=== PATIENT | male | born 1960 | race Caucasian/White ===

== ENCOUNTER 2021-12-23 17:48 | Observation (INO) | payer OTHER, SELFPAY ==
[2021-12-23] VITALS (16 sets, daily range): BP systolic 115–160; BP diastolic 66–84; PULSE 64–80; RESP 14–21; TEMP 35.8–36.7; O2SAT 96–99; BMI 23.9
--- NOTE | ~2021-12-23 | XR_ITS ---
EXAMINATION: XR chest 2V DATE: 12/23/2021 18:22 INDICATION: Left arm numbness TECHNIQUE: PA and lateral views of the chest are obtained. COMPARISON: None available FINDINGS: The lungs are free of acute opacities. There is no pleural effusion or pneumothorax. The ca rdiomediastinal silhouette is normal. There is mild thoracic spondylosis. Median sternotomy wires are consistent with prior cardiac surgery. IMPRESSION: 1. No acute cardiopulmonary abnormality. Reviewed, dictated and finalized at location F.
--- NOTE | ~2021-12-23 | XR_ITS ---
EXAMINATION: XR shoulder LT min 2V INDICATION: Left shoulder pain TECHNIQUE: Four views of the left shoulder are submitted. COMPARISON: None FINDINGS: Normal alignment. No fracture. There is mild osteoarthritis of the glenohumeral and acromio clavicular joints. Median sternotomy wires are noted. Soft tissues are unremarkable. IMPRESSION: 1. No acute osseous abnormality. Reviewed, dictated and finalized at location F.
--- NOTE | 2021-12-23 17:54 | ECG_ITS ---
Measurements Intervals [place] Rate: 69 P: 69 [place]: 161 QRS: -25 QRSD: 97 T: 78 QT: 389 QTc: 418 Interpretive Statements SINUS RHYTHM INCOMPLETE RIGHT BUNDLE BRANCH BLOCK CANNOT RULE OUT SEPTAL INFARCT, AGE INDETERMINATE BORDERLINE ST-T WAVE ABNORMALITY- ANTEROLAT/HIGH LAT LEADS BASELINE ARTIFACT- I, II, III, AVR, AVL, V2-V3 ABNORMAL ECG Electronically Signed On 12-23-2021 18:18:10 CDT by Justin Schmid D.O.
[2021-12-23 18:17] LABS: Basophils Percent Auto 0.3 % (0.2-1.2); Eosinophils Absolute Auto 0.1 K/mm3 (0-0.3); Eosinophils Percent Auto 1.5 % (0-4.4); Hematocrit 43.6 % (42.0-52.0); Hemoglobin 14.8 g/dL (14.0-18.0); Immature Granulocyte Absolute 0.03 K/mm3 (0.00-0.031); Immature Granulocyte Percent A 0.4 % (0-0.5); Lymphocytes Absolute Auto 2.39 K/mm3 (0.9-3.2); Lymphocytes Percent Auto 31.5 % (18.3-44.2); Mean Corpuscular HGB Conc 33.9 g/dl (32-36); Mean Corpuscular Hemoglobin 32.5 pg (26-34); Mean Corpuscular Volume 95.6 fl (80-100); Mean Platelet Volume 8.9 fl (7.4-10.4); Monocytes Absolute Auto 0.7 K/mm3 (0.1-0.6); Monocytes Percent Auto 8.7 % (2.6-8.5); Neutrophils Absolute Auto 4.4 K/mm3 (1.3-6.7); Neutrophils Percent Auto 57.6 % (45.5-73.1); Platelet Count Result 159 k/mm3 (150-375); Red Blood Count 4.56 M/mm3 (4.6-6.20); Red Cell Distribution Width 12.8 % (11.5-14.5); White Blood Count 7.6 K/mm3 (4.5-10.0)
[2021-12-23] MEDS: ASPIRIN 81 MG CHEWABLE TABLET 324 MG PO (18:20)
[2021-12-23 18:28] LABS: Partial Thromboplastin Time 34.6 SECONDS (22.3-36.8)
[2021-12-23 18:29] LABS: Alanine Aminotransferase 31 U/L (6-50); Albumin Level 4.7 g/dL (3.5-5.1); Alkaline Phosphatase 112 U/L (38-126); Anion Gap 7 mmol/L (8-16); Aspartate Amino Transferase 33 U/L (17-59); Bilirubin,Total 0.2 mg/dL (0.2-1.3); Blood Urea Nitrogen 11 mg/dL (9-20); Calcium 8.8 mg/dL (8.4-10.2); Carbon Dioxide 27 mmol/L (22-30); Chloride 108 mmol/L (98-107); Estimated CRCL calculation 90 ml/min; Estimated Glomerular Filt Rate > 60; Glucose 98 mg/dL (65-110); Lipase 71 U/L (23-300); Potassium 3.4 mmol/L (3.4-5.0); Sodium 142 mmol/L (137-145)
--- NOTE | 2021-12-23 18:43 | ED.CHESTPAIN ---
HPI - Chest Pain General Chief Complaint: Chest Pain Stated Complaint: chest pain, left arm numbness Time Seen by Provider: 12/23/21 18:42 Source: patient, family and RN notes reviewed Mode of arrival: ambulatory Limitations: no limitations History of Present Illness HPI narrative: Patient is 61 years old white male presented to the ED with gradual progression of pain at the left upper extremity/left shoulder. Patient also reports some shortness of breath and left upper chest pain. Over the last 7 days and gradually getting worse. Patient reported pain improves with sublingual nitroglycerin for maximum 30 minutes then comes back again. History of possible left rotator cuff injury. History of depression, coronary artery disease, 2 coronary stents 3 years ago, cardiac balloon May 2022. Patient does smoke, does not drink or uses drugs, Related Data Allergies Allergy/AdvReac Type Severity Reaction Status Date / Time No Known Allergies Allergy Verified 12/23/21 18:04 Review of Systems Review of Systems: All systems reviewed & are unremarkable except as noted in HPI and below Exam Narrative: General appearance: Well-developed, well-nourished Skin: Normal color Head: Normocephalic, nontraumatic Eyes: Clear conjunctiva ENT: Oropharynx normal, ears normal, nose normal Neck: Supple, nontender Chest and respiratory: Airway patent, no respiratory distress, no accessory muscle use Heart: Regular rate/rhythm Abdomen: Soft, nontender, no organomegaly, quiet bowel sounds Vascular: Normal peripheral pulses, normal capillary refill. Musculoskeletal: Diffuse tenderness left shoulder mainly with movement, no bruises, no swelling, no rash Neurologic: Alert and oriented ?3, ICE SELLER is normal as tested, no gross motor deficit Course Vital Signs Vital signs: Vital Signs Temperature 36.7 C 12/23/21 18:00 Pulse Rate 68 12/23/21 18:00 Respiratory Rate 18 12/23/21 18:00 Blood Pressure 160/72 H 12/23/21 18:00 Pulse Oximetry 99 12/23/21 18:00 Oxygen Delivery Room Air 12/23/21 18:00 Temperature 36.7 C 12/23/21 18:00 Pulse Rate 65 12/23/21 18:23 Respiratory Rate 18 12/23/21 18:00 Blood Pressure 160/72 H 12/23/21 18:00 Pulse Oximetry 99 12/23/21 18:00 Oxygen Delivery Room Air 12/23/21 18:00 MDM - Chest Pain Lab Data Result diagrams: 12/23/21 18:12 12/23/21 18:12 Labs: Lab Results 12/23/21 12/23/21 12/23/21 Range/Units 18:12 18:12 18:12 WBC 7.6 (4.5-10.0) K/mm3 RBC 4.56 L (4.6-6.20) M/mm3 Hgb 14.8 (14.0-18.0) g/dL Hct 43.6 (42.0-52.0) % MCV 95.6 (80-100) fl MCH 32.5 (26-34) pg MCHC 33.9 (32-36) g/dl RDW 12.8 (11.5-14.5) % Plt Count 159 (150-375) k/mm3 MPV 8.9 (7.4-10.4) fl Immature Gran % (Auto) 0.4 (0-0.5) % Neut % (Auto) 57.6 (45.5-73.1) % Lymph % (Auto) 31.5 (18.3-44.2) % [place] % (Auto) 8.7 H (2.6-8.5) % Eos % (Auto) 1.5 (0-4.4) % Baso % (Auto) 0.3 (0.2-1.2) % Lymph # (Auto) 2.39 (0.9-3.2) K/mm3 [place] # (Auto) 0.7 H (0.1-0.6) K/mm3 Eos # (Auto) 0.1 (0-0.3) K/mm3 Baso # (Auto) 0.0 (0.0-0.1) K/mm3 Abs Immat Gran (auto) 0.03 (0.00-0.031) K/mm3 Absolute Neuts (auto) 4.4 (1.3-6.7) K/mm3 Absolute Nucleated RBC 0.0 (0.0-0.012) K/mm3 Nucleated RBC % 0.0 (0.0-0.2) % PT 13.0 (11.1-14.7) Seconds INR 1.0 APTT 34.6 (22.3-36.8) SECONDS Sodium 142 (137-145) mmol/L Potassium 3.4 (3.4-5.0) mmol/L Chloride 108 H (98-107) mmol/L Carbon Dioxide 27 (22-30) mmol/L Anion Gap 7 L (8-16) mmol/L BUN 11 (9-20) mg/dL Creatinine 0.90
[2021-12-23 18:46] LABS: Troponin I < 0.012 ng/mL (0.000-0.034)
--- NOTE | 2021-12-23 20:45 | PC.NURSE ---
Patient stated, I do not need or want any kind of medication
--- NOTE | 2021-12-23 21:30 | PC.NURSE ---
This patient, Boris Colin Jr., was admitted to IMU Room 201-01. Patient/family oriented to hospital policies and general routines including ID bracelet, bed and alarms, visiting hours, pain management, procedures, bathroom and other care routines, personal items, smoking policy, room service/diet, and visiting hours. Patient/Family are encouraged to report perceived risks to care and to ask questions if they do not understand what they are told or what they should do.
[2021-12-23] MEDS: ENOXAPARIN 100 MG/ML SYRINGE 90 MG SUB-Q (21:48)
[2021-12-23] MEDS: NITROGLYCERIN OINTMENT 1 INCH DOSE TRANSDERM (21:48)
[2021-12-23 22:35] LABS: Troponin I < 0.012 ng/mL (0.000-0.034)
[2021-12-23] MEDS: carvediloL 12.5 MG TABLET PO (22:37)
[2021-12-24] VITALS: PULSE 68
[2021-12-24 00:06] LABS: Troponin I < 0.012 ng/mL (0.000-0.034)
[2021-12-24] MEDS: HYDROcodone/acetaminophen (*CRX) 10-325 MG TABLET 1 TAB PO (00:53)
[2021-12-24] MEDS: NITROGLYCERIN OINTMENT 1 INCH DOSE TRANSDERM (00:53)
[2021-12-24 02:00] VITALS: PULSE 69
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
[2021-12-24] MEDS: CYCLOBENZAPRINE HCL 10 MG TABLET PO (03:36)
[2021-12-24 04:00] VITALS: BP 130/72; PULSE 94; RESP 16; TEMP 36.2; O2SAT 97
[2021-12-24 05:43] VITALS: PULSE 64
--- NOTE | 2021-12-24 06:00 | ECG_ITS ---
Measurements Intervals [place] Rate: 66 P: 66 MT: 167 QRS: -22 QRSD: 98 T: 91 QT: 415 QTc: 437 Interpretive Statements SINUS RHYTHM POSSIBLE RIGHT VENTRICULAR CONDUCTION DELAY [RSR (QR) IN V1/V2] NONSPECIFIC ST ABNORMALITY SEPTAL MYOCARDIAL INFARCTION , OF INDETERMINATE AGE [40+ ms Q WAVE IN V1/V2] ABNORMAL ECG COMPARED TO ECG 12/23/2021 17:54:05 NO SIGNIFICANT CHANGES Electronically Signed On 12-24-2021 11:41:12 CDT by Dilan Monahan M.D.
[2021-12-24 08:00] VITALS: BP 122/84; PULSE 66; RESP 12; TEMP 35.8; O2SAT 96
[2021-12-24] MEDS: CLOPIDOGREL BISULFATE 75 MG TABLET PO (08:21)
[2021-12-24] MEDS: LIPASE/AMYLASE/PROTEASE 12,000 UNITS CAP 9 CAP PO (08:21)
[2021-12-24] MEDS: GABAPENTIN 300 MG CAPSULE PO (08:21)
[2021-12-24 08:22] VITALS: PULSE 70
[2021-12-24] MEDS: CITALOPRAM HYDROBROMIDE 20 MG TABLET PO (08:22)
[2021-12-24] MEDS: ISOSORBIDE MONONITRATE 60 MG TAB.ER.24H PO (08:22)
[2021-12-24] MEDS: FAMOTIDINE 20 MG TABLET PO (08:22)
[2021-12-24] MEDS: ASPIRIN 81 MG CHEWABLE TABLET PO (08:22)
[2021-12-24] MEDS: carvediloL 6.25 MG TABLET PO (08:22)
[2021-12-24] MEDS: ATORVASTATIN 10 MG TABLET PO (08:23)
[2021-12-24] MEDS: HYDROcodone/acetaminophen (*CRX) 5-325 MG TABLET 1 TAB PO (08:26)
--- NOTE | 2021-12-24 09:18 | PM.CNCAR ---
Assessment and Plan Assessment and plan (1) Coronary artery disease: Code(s): I25.10 - Atherosclerotic heart disease of [place] coronary artery without angina pectoris Status: Acute Assessment and Plan: no anginal symptoms at presentation. Left shoulder and neck pain consistent with musculoskeletal etiology and or radiculopathy secondary to cervical spine nerve impingement and or muscle strain. Local pain management per primary service. Symptoms are not due to acute coronary syndrome and/or unstable angina. He has no chest pain and present symptoms are completely different than that noted with his previous myocardial infarction. Serial troponins negative, no acute ischemic changes by EKG. No further cardiovascular workup indicated at this time. Patient will follow-up with his engine oiler at [facility] and vascular after discharge. Continue home cardiovascular medical therapy going statin, beta-murray, antiplatelet with clopidogrel. Patient had a PCI/balloon angioplasty May 2021 There for must not be discontinued on clopidogrel. I would add aspirin 81 mg daily as well given recent intervention. Stable for discharge from cardiac perspective. Disposition per hospitalist service. Please do not hesitate to contact us with any additional questions or concerns. (2) Left shoulder pain: Code(s): M25.512 - Pain in left shoulder Status: Acute Assessment and Plan: Musculoskeletal etiology. Per primary service. Secondary to cervical nerve impingement and or muscle strain with spasm. (3) Essential hypertension: Code(s): I10 - Essential (primary) hypertension Status: Acute Assessment and Plan: Reasonably controlled. Continue antihypertensive regimen. (4) Hyperlipidemia: Code(s): E78.5 - Hyperlipidemia, unspecified Status: Acute Assessment and Plan: Continue atorvastatin, goal LDL less than 70. (5) Tobacco abuse: Code(s): Z72.0 - Tobacco use Status: Acute Assessment and Plan: Immediate and absolute smoking cessation counseling. Patient verbalized understanding states he is attempting to quit. (6) History of myocardial infarction: Code(s): I25.2 - Old myocardial infarction Status: Acute Assessment and Plan: History of prior myocardial infarction with multiple stent implantations several years ago. Patient reports having balloon angioplasty May 2021 but denies having preceding symptoms or improvement in how he was feeling as this was performed due to abnormal stress test as he reports. History of Present Illness History of Present Illness Consult date/time: Date of service:12/24/21 09:18 Cardiology consultation at the request of Dr. Coulter of the [facility] service for opinion regarding history of CAD and shoulder pain. Requesting physician: Jade Coulter DO Reason For Visit: Unstable angina,lft shoulder rotator cuff syndrome Narrative: Patient is a pleasant 61-year-old male with past medical history significant for COPD, tobacco abuse, CAD with prior myocardial infarction with STEMI late presentation November 2008 with extensive LAD calcification 100% occlusion status post 2 drug-eluting stents in the diagonal Dr. Menchaca now follows [facility] cardiology at [facility] in [place]. Patient reports he has done well without recurrent chest pain or shortness of breath but reports he underwent a stress test with his engine oiler which led to a cardiac catheterization May 2021 and balloon angioplasty at that time. Patient denies chest pain or shortness of breath preceding this procedure or subsequent. He has been compliant with medications although he continues to smoke. He states for the past week he has had constant left shoulder and neck pain improved temporarily with his [place] for couple of hours then would return. The severity progressed over the past several day
--- NOTE | 2021-12-24 11:23 | PM.DS ---
DS: Admitting Diagnosis Discharge Date December 24, 2021 Admitting Diagnosis chest pain DS: Discharge Diagnosis Discharge Diagnosis (1) Coronary artery disease: Code(s): I25.10 - Atherosclerotic heart disease of [place] coronary artery without angina pectoris Status: Acute Assessment and Plan: not a cardiac issue this hospitalization (2) Left shoulder pain: Code(s): M25.512 - Pain in left shoulder Status: Acute Plan pain was related to Neck pain with radiculopathy. DS: Summary Hospital Course Reason for hospitalization: Left shoulder pain Hospital Course: admit for left shoulder pain and found to have left-sided neck radiculopathy. Cardiac workup negative. Cardiology no further workup needed. He can be discharged home Time Spent with Patient Time attestation: Total time spent providing and/or coordinating discharge services: Exam Narrative: PHYSICAL EXAM: WEIGHT 87 kg BMI 24 General: No acute distress, well-developed well-nourished HEENT: Mucous membranes are moist, edentulous in upper jaw, poor dentition in lower jaw, pupils are equal and reactive, eye glasses in place, head is normocephalic atraumatic Respiratory: End-expiratory wheezing bilaterally, no increased work of breathing Cardiovascular: Regular rate, regular rhythm, 2+ bilateral radial pedal pulses Gastrointestinal: Soft, nontender, nondistended, positive bowel sounds, no organomegaly Skin: No pallor, non jaundice Musculoskeletal: No clubbing, cyanosis or edema, moves all extremities equally, decreased recently motion of the left shoulder with lateral adduction of the shoulder, no point tenderness Neurological: Alert and oriented, speech is clear, no facial asymmetry, no localizing neurologic deficits noted during the course catheterization Psychiatric: Appropriate mood and affect, pleasant and cooperative : Deferred Hematologic/lymphatic: No petechiae, no bruising, no anterior cervical lymphadenopathy Back and spine: Left paraspinal muscle/trapezius muscle spasm with tenderness to palpation of the neck DS: Data Data Completed and Pending Labs on day of discharge: Labs from last 24 hours 12/23/21 12/23/21 12/23/21 23:29 21:47 18:12 WBC RBC Hgb Hct MCV MCH MCHC RDW Plt Count MPV Immature Gran % (Auto) Neut % (Auto) Lymph % (Auto) [place] % (Auto) Eos % (Auto) Baso % (Auto) Lymph # (Auto) [place] # (Auto) Eos # (Auto) Baso # (Auto) Abs Immat Gran (auto) Absolute Neuts (auto) Absolute Nucleated RBC Nucleated RBC % PT INR APTT Sodium 142 Potassium 3.4 Chloride 108 H Carbon Dioxide 27 Anion Gap 7 L BUN 11 Creatinine 0.90 Estim Creat Clear Calc 90 Estimated GFR > 60 Glucose 98 Calcium 8.8 Total Bilirubin 0.2 AST 33 ALT 31 Alkaline Phosphatase 112 Troponin I < 0.012 < 0.012 < 0.012 Total Protein 8.0 Albumin 4.7 Lipase 71 12/23/21 12/23/21 18:12 18:12 WBC 7.6 RBC 4.56 L Hgb 14.8 Hct 43.6 MCV 95.6 MCH 32.5 MCHC 33.9 RDW 12.8 Plt Count 159 MPV 8.9 Immature Gran % (Auto) 0.4 Neut % (Auto) 57.6 Lymph % (Auto) 31.5 [place] % (Auto) 8.7 H Eos % (Auto) 1.5 Baso % (Auto) 0.3 Lymph # (Auto) 2.39 [place] # (Auto) 0.7 H Eos # (Auto) 0.1 Baso # (Auto) 0.0 Abs Immat Gran (auto) 0.03 Absolute Neuts (auto) 4.4 Absolute Nucleated RBC 0.0 Nucleated RBC % 0.0 PT 13.0 INR 1.0 APTT 34.6 Sodium Potassium Chloride Carbon Dioxide Anion Gap BUN Creatinine Estim Creat Clear Calc Estimated GFR Glucose Calcium Total Bilirubin AST ALT Alkaline Phosphatase Troponin I Total Protein Albumin Lipase Discharge Plan Discharge Attending physician on discharge: Seb Gaming Consulting providers: Alberto Cm Discharging Clinician: Benito Gaming
== END 2021-12-24 11:48 | disposition home or self-care (01) ==
LOC: ANHED 19:20 → ANHIMU 22:09
PROVIDERS: Admitting Provider Internal Medicine; Emergency Provider Emergency Medicine; PCP Physician Assistant; Visit Provider Chiropractor
DX: M25.512 Pain in left shoulder (principal); M54.2 Cervicalgia; I25.10 Atherosclerotic heart disease of native coronary artery without angina pectoris; I10 Essential (primary) hypertension; I25.2 Old myocardial infarction; J44.9 Chronic obstructive pulmonary disease, unspecified; E78.5 Hyperlipidemia, unspecified; K21.9 Gastro-esophageal reflux disease without esophagitis; K76.0 Fatty (change of) liver, not elsewhere classified; F17.210 Nicotine dependence, cigarettes, uncomplicated; M79.7 Fibromyalgia; F20.9 Schizophrenia, unspecified; K86.89 Other specified diseases of pancreas; F32.A Depression, unspecified; Z86.19 Personal history of other infectious and parasitic diseases; Z79.01 Long term (current) use of anticoagulants; Z95.5 Presence of coronary angioplasty implant and graft
CPT/HCPCS: 36415; 71046; 73030; 80053; 83690; 84484; 85025; 85610; 85730; 93005; 96372; 99285; A9270; G0378; G0379; J1650

== ENCOUNTER 2024-01-13 13:54 | Emergency (ER) | payer OTHER, SELFPAY ==
[2024-01-13] VITALS (24 sets, daily range): BP systolic 131–168; BP diastolic 79–91; PULSE 61–82; RESP 13–29; TEMP 36.4; O2SAT 100
--- NOTE | ~2024-01-13 | XR_ITS ---
EXAMINATION: XR chest 2V 01/13/2024 14:20 INDICATION: Shortness of breath PROCEDURE: 2 view chest COMPARISON: 12/23/2021 FINDINGS: The lungs are clear. The cardiomediastinal silhouette is within normal limits. There are no pleural effusions. There is no pneumothorax suspected. Status post median sternotomy for CABG. IMPRESSION: 1: NO ACUTE CARDIOPULMONARY DISEASE. Reviewed, dictated and finalized at location B.
--- NOTE | 2024-01-13 13:58 | ECG_ITS ---
Test Date: 2024-01-13 14:02:26 Measurements Intervals [place] Rate: 73 P: 69 [place]: 163 QRS: -7 QRSD: 99 T: 81 QT: 414 QTc: 458 Interpretive Statements SINUS RHYTHM SEPTAL MYOCARDIAL INFARCTION , OF INDETERMINATE AGE [40+ ms Q WAVE IN V1/V2] ABNORMAL ECG No previous ECG available for comparison Electronically Signed On 01-13-2024 16:25:21 CDT by Alberto Cm M.D.
[2024-01-13 15:42] LABS: Basophils Percent Auto 0.4 % (0.2-1.2); Eosinophils Absolute Auto 0.1 K/mm3 (0-0.3); Eosinophils Percent Auto 0.9 % (0-4.4); Hematocrit 35.8 % (42.0-52.0); Hemoglobin 12.2 g/dL (14.0-18.0); Immature Granulocyte Absolute 0.02 K/mm3 (0.00-0.031); Immature Granulocyte Percent A 0.3 % (0-0.5); Lymphocytes Absolute Auto 1.09 K/mm3 (0.9-3.2); Lymphocytes Percent Auto 16.3 % (18.3-44.2); Mean Corpuscular HGB Conc 34.1 g/dl (32-36); Mean Corpuscular Hemoglobin 32.4 pg (26-34); Mean Corpuscular Volume 95.2 fl (80-100); Mean Platelet Volume 9.2 fl (7.4-10.4); Monocytes Absolute Auto 0.5 K/mm3 (0.1-0.6); Neutrophils Percent Auto 75.1 % (45.5-73.1); Platelet Count Result 192 k/mm3 (150-375); Red Blood Count 3.76 M/mm3 (4.6-6.20); Red Cell Distribution Width 13.9 % (11.5-14.5); White Blood Count 6.7 K/mm3 (4.5-10.0)
[2024-01-13 15:55] LABS: Partial Thromboplastin Time 33.9 Seconds (22.3-36.8)
[2024-01-13 15:58] LABS: Alanine Aminotransferase 13 U/L (6-50); Albumin Level 4.3 g/dL (3.5-5.1); Alkaline Phosphatase 136 U/L (38-126); Anion Gap 5 mmol/L (4-12); Aspartate Amino Transferase 20 U/L (17-59); Bilirubin,Total 0.6 mg/dL (0.2-1.3); Blood Urea Nitrogen 10 mg/dL (9-20); Carbon Dioxide 27 mmol/L (22-30); Chloride 113 mmol/L (98-107); Estimated CRCL calculation 76 ml/min; Estimated Glomerular Filt Rate > 60; Glucose 99 mg/dL (65-110); Potassium 3.6 mmol/L (3.4-5.0); Sodium 145 mmol/L (137-145)
[2024-01-13 16:06] LABS: NT Pro B Type Natriuretic Pept 275 pg/mL (19.9-100); Troponin I < 0.012 ng/mL (0.000-0.034)
--- NOTE | 2024-01-13 16:39 | PC.NURSE ---
Awaiting ERP to see. Pt admits that he has been off of his depression meds and feels this is causing his anxiety.
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
[2024-01-13] MEDS: diazePAM (*CRX) 2 MG TABLET PO (18:08)
[2024-01-13 18:16] LABS: Appearance Urine Clear (Clear); Bilirubin Urine Negative (Negative); Blood Urine Negative (Negative); Color Urine Yellow (Yellow); Glucose Urine UA Negative (Negative); Ketones Urine Negative (Negative); Leukocyte Esterase Ur Negative LEU/UL (Negative); Nitrate Urine Negative (Negative); Protein Urine Negative (Negative); Urobilinogen Urine 0.2 mg/dL (<2.0)
--- NOTE | 2024-01-13 18:25 | PC.NURSE ---
Spoke with Nga at crisis. They request drug screen and covid prior to screening.
[2024-01-13 18:31] LABS: Barbiturate Screen Urine Negative (Negative); Benzodiazepines Screen Urine Negative (Negative)
[2024-01-13 18:35] LABS: Cannabinoid Screen Urine Positive (Negative); Cocaine Screen Urine Negative (Negative); Methadone Screen Urine Negative (Negative); Opiate Screen Urine Negative (Negative); Phencyclidine Screen Urine Negative (Negative)
[2024-01-13 18:38] LABS: Add Urine Microscopic? NO
[2024-01-13 18:49] LABS: Amphetamine Screen Urine Positive (Negative)
[2024-01-13 19:26] LABS: Influenza A QL RT-PCR Negative (Negative); Influenza B QL RT-PCR Negative (Negative); RSV RNA, RT-PCR Negative (Negative); SARS-CoV-2 RNA PCR Negative (Negative)
--- NOTE | 2024-01-13 19:31 | PC.NURSE ---
this rn assumed care of patient. this rn took patient report from ETHAN Desir.
[2024-01-13 19:44] LABS: Ethanol < 10 mg/dL (<10)
--- NOTE | 2024-01-13 19:56 | PC.NURSE ---
pt eloped from room 4. pt not found in bed, hallway, bathroom. pt was noted to be found smoking a cigarette in the parking lot. this rn, another rn, and ed security attempted to explain and educate patient on importance of staying in the room. pt began to raise his voice stating, no one cares, El[place] waiting for my and kid to come get me . this rn explained to patient the need to go back to room for crisis to evaluate him. pt stated, he did not need to do anything . this rn along with security explained the need for patient to return to room. pt requested to have IV removed. this rn removed iv with catheter intact. pt then stated, I am leaving, this is the thanks I get for waiting in that bed for 7 hours . This rn attempted to explain the situation to patient. pt then decided to elope from the parking lot towards personal vehicle.
== END 2024-01-13 20:03 | disposition left against medical advice (07) ==
PROVIDERS: Emergency Medicine; Emergency Provider Student in an Organized Health Care Education/Training Program
DX: Z76.0 Encounter for issue of repeat prescription (principal); F41.9 Anxiety disorder, unspecified; D64.9 Anemia, unspecified; R45.851 Suicidal ideations; R06.02 Shortness of breath; R07.9 Chest pain, unspecified; R74.8 Abnormal levels of other serum enzymes; I25.10 Atherosclerotic heart disease of native coronary artery without angina pectoris; I10 Essential (primary) hypertension; E78.5 Hyperlipidemia, unspecified; I25.2 Old myocardial infarction; F17.210 Nicotine dependence, cigarettes, uncomplicated; Z20.822 Contact with and (suspected) exposure to COVID-19
CPT/HCPCS: 36415; 71046; 80053; 80307; 81003; 83880; 84484; 85025; 85610; 85730; 87637; 93005; 99284; A9270

== ENCOUNTER 2024-02-12 19:33 | Emergency (ER) | payer OTHER, SELFPAY ==
[2024-02-12 19:42] VITALS: BP 92/56; PULSE 97; RESP 16; TEMP 36.8; O2SAT 98
--- NOTE | 2024-02-12 19:48 | ED.GENADULT ---
HPI - General Adult General Chief complaint: Wound/Laceration Stated complaint: Right Hand Finger Wound Time Seen by Provider: 02/12/24 19:48 Source: patient, RN notes reviewed and old records reviewed Mode of arrival: ambulatory Limitations: no limitations History of Present Illness HPI narrative: 63-year-old male presents to the [facility] with a wound that is circumferential to the middle finger right hand. Purulent drainage noted. Patient is a very poor historian and had changed his story 3 times during conversation. Originally stated he cut it with a pocket knife yesterday morning. Then stated that he had a dog bite 2 days ago. Erythema, swelling noted from the PIP distally to the nail bed. Wounds that patient is holding closed with a butterfly, purulent drainage to the dorsal aspect at the D IP Related Data Home Medications Medication Instructions Recorded Confirmed atorvastatin 20 mg tablet 10 mg PO DAILY 12/23/21 02/12/24 carvedilol 6.25 mg tablet 6.25 mg PO DAILY 12/23/21 02/12/24 citalopram 20 mg tablet 20 mg PO DAILY 12/23/21 02/12/24 clopidogrel 75 mg tablet 75 mg PO DAILY 12/23/21 02/12/24 cyclobenzaprine 10 mg tablet 10 mg PO HS 12/23/21 02/12/24 dicyclomine 10 mg capsule 10 mg PO Q6H PRN Gastrointestinal 12/23/21 02/12/24 Spasms Or Cramping famotidine 20 mg tablet 20 mg PO DAILY 12/23/21 02/12/24 hydrocodone 5 mg-acetaminophen 325 1 tablet PO Q12H PRN Moderate Pain 12/23/21 02/12/24 mg tablet (Scale Score 5-6) isosorbide mononitrate 60 mg 1 tablet PO DAILY 12/23/21 02/12/24 tablet,extended release 24 hr [id number]-[id number]-yobbzum 3 cap PO TIDWMEAL 12/23/21 02/12/24 36,000-114,000-180,000 unit capsule,delay rel (Creon) nitroglycerin 0.4 mg sublingual 1 tablet sublingual Q5M PRN Chest 12/23/21 02/12/24 tablet Pain olanzapine 5 mg tablet 5 mg PO HS 12/23/21 02/12/24 Allergies Allergy/AdvReac Type Severity Reaction Status Date / Time No Known Allergies Allergy Verified 02/12/24 19:34 Review of Systems Review of Systems: All systems reviewed & are unremarkable except as noted in HPI and below Constitutional: Constitutional: Reports no additional constitutional complaints Eyes: Eyes: Reports no additional eye complaints ENT: Reports system reviewed and no additional complaints, except as documented Cardiovascular: Cardiovascular: Reports no additional cardiovascular complaints, Denies chest pain and Denies dyspnea Respiratory: Respiratory: Reports no additional respiratory complaints, Denies chest congestion, Denies cough and Denies dyspnea Gastrointestinal: Gastrointestinal: Reports no additional gastrointestinal complaints, Denies abdominal pain, Denies nausea and Denies vomiting Musculoskeletal: Musculoskeletal: Reports no additional musculoskeletal complaints Integumentary/Breasts: Skin/Breast: Reports as per HPI Neurologic: Reports system reviewed and no additional complaints, except as documented Psychiatric: Psychiatric: Reports no additional psychiatric complaints Allergic/Immunologic: Allergic/Immunologic: Reports no additional allergic/immunologic complaints PMFSH Past Medical History Medical History Anxiety Coronary artery disease DJD (degenerative joint disease) Emphysema/COPD Essential hypertension Fibromyalgia GERD (gastroesophageal reflux disease) Hepatic steatosis Hepatitis C Previously treated History of myocardial infarction in adulthood Hyperlipidemia MDD (major depressive disorder) Pancreatic insufficiency Pancreatitis Schizophrenia Surgical History Surgical History History of heart artery stent (11/2018) With catheterization demonstrating 100% occlusion of LAD with heavily calcified disease with no anterior grade flow after small septal perforating vessels. With 2 stents placed in the diagonal History of laparoscopic cholecystectomy History of
== END 2024-02-12 19:57 | disposition left against medical advice (07) ==
LOC: EXPCOLL 19:35
PROVIDERS: Emergency Provider Nurse Practitioner; PCP Internal Medicine Gastroenterology
DX: L08.9 Local infection of the skin and subcutaneous tissue, unspecified (principal); F17.210 Nicotine dependence, cigarettes, uncomplicated; I25.10 Atherosclerotic heart disease of native coronary artery without angina pectoris; J44.9 Chronic obstructive pulmonary disease, unspecified; I10 Essential (primary) hypertension; M79.7 Fibromyalgia; K21.9 Gastro-esophageal reflux disease without esophagitis; E78.5 Hyperlipidemia, unspecified; F41.9 Anxiety disorder, unspecified
CPT/HCPCS: 99212; G0463

== ENCOUNTER 2024-05-19 14:57 | Emergency (ER) | payer OTHER, SELFPAY ==
[2024-05-19 15:06] VITALS: BP 110/66; PULSE 82; RESP 19; TEMP 36.7; O2SAT 99
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
[2024-05-19] MEDS: SILVER SULFADIAZINE 1% CR 50 GM JAR (*BKC) 1 APPLIC TOPICAL (15:29)
== END 2024-05-19 15:35 | disposition home or self-care (01) ==
PROVIDERS: Emergency Provider Nurse Practitioner Family; PCP Internal Medicine Gastroenterology
DX: T23.252A Burn of second degree of left palm, initial encounter (principal); T23.172A Burn of first degree of left wrist, initial encounter; X19.XXXA Contact with other heat and hot substances, initial encounter; Y93.G3 Activity, cooking and baking; F17.210 Nicotine dependence, cigarettes, uncomplicated; I25.10 Atherosclerotic heart disease of native coronary artery without angina pectoris; J44.9 Chronic obstructive pulmonary disease, unspecified; M79.7 Fibromyalgia; K21.9 Gastro-esophageal reflux disease without esophagitis; K76.0 Fatty (change of) liver, not elsewhere classified; I25.2 Old myocardial infarction; R78.5 Finding of other psychotropic drug in blood; F41.9 Anxiety disorder, unspecified; F32.9 Major depressive disorder, single episode, unspecified; Z95.5 Presence of coronary angioplasty implant and graft
CPT/HCPCS: 16020; 99213; A9270; G0463

== ENCOUNTER 2024-08-05 15:16 | Emergency (ER) | payer OTHER, SELFPAY ==
--- NOTE | ~2024-08-05 | XR_ITS ---
XR hip RT 2V w AP pelvis Ordering provider: Leslee Leonardo History: . right hip pain, fall . Comparison: None. FINDINGS: BONES: Lucency is seen in the intertrochanteric area which may be summation shadow. Fracture cannot b e excluded. CT evaluation advised. Postoperative changes in the left proximal femur. HIP JOINT SPACES: Normal. SACROILIAC JOINT SPACES/LUMBAR SPINE: The sacroiliac joint spaces are normal. Mild degenerative ross es of the visualized lower lumbar spine. PUBIC SYMPHYSIS: Normal. SOFT TISSUES: Normal. IMPRESSION: Lucency seen in the intertrochanteric area which may be summation shadow but a fracture cannot be exc luded. CT evaluation advised. Reviewed, dictated and finalized at location A. [employer] IMPRESSION: Lucency seen in the intertrochanteric area which may be summation shadow but a fracture cannot be excluded. CT evaluation advised.
--- NOTE | ~2024-08-05 | CT_ITS ---
EXAMINATION: CT pelvis wo con DATE: 08/05/2024 22:03 INDICATION: Fall, right hip pain. Lucency noted overlying right intratrochanteric area on right hip radiographs. TECHNIQUE: Computed tomography (CT) of the pelvis was performed without intravenous contrast. Automat ed exposure control and iterative reconstruction technique were employed. Exam dose: 198.66 mGy-cm t otal exam DLP. COMPARISON: None FINDINGS: No pelvic fracture is detected. No recent left or right hip fracture is noted. Intramedullary hilda of left femur. 2.2 cm exophytic left renal cyst. Prostate enlargement and calcification. Distended urinary bladder. No bladder wall thickening. There is a prominent amount of fecal material in the colon. Bowel obstruction. Normal appendix. IMPRESSION: No recent pelvic or left or right hip fracture Reviewed, dictated and finalized at [facility]. Reviewed, dictated and finalized at location [facility]. ICULUM MANAGER
--- NOTE | ~2024-08-05 | CT_ITS ---
CT lumbar spine wo con Ordering provider: Leslee Leonardo PA-C History: 63 years Male with . low back pain, fall . Comparison: None. Technique: CT lumbar spine without contrast. Automated exposure control and iterative reconstruction technique were employed. The dose-length product was 377.75 mGy-cm. FINDINGS: VERTEBRAE: Normal height and alignment. No subluxation or visible acute fracture. Cystic area in the inferior endplate of L3 most likely degenerative. Old fracture of the left transverse process of L2 v ersus nonunited apophysis. DISC SPACES: Slight narrowing of the disc L4-L5. Facet joint disease at the level of L4-L5. T12-L1: No stenosis. L1-L2: No stenosis. L2-L3: No stenosis. Diffuse disc bulge. Slight narrowing of the foramina. L3-L4: No stenosis. Diffuse disc bulge with bilateral narrowing of the foramina. L4-L5: No stenosis. Diffuse disc bulge with bilateral narrowing of the foramina. L5-S1: No stenosis. Diffuse disc bulge with narrowing of the right foramen. PARASPINOUS SOFT TISSUES: Mild atheromatous disease of the abdominal aorta. IMPRESSION: No acute osseous abnormality. Multilevel disc bulges with intervertebral foraminal narrowing. Reviewed, dictated and finalized at location [facility]. ER/WAITRESS
[2024-08-05 15:19] VITALS: BP 116/96; PULSE 80; RESP 20; TEMP 36.3; O2SAT 100
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
[2024-08-05 20:48] VITALS: BP 128/74; PULSE 73; RESP 16; O2SAT 98
[2024-08-05 23:28] VITALS: BP 141/83; PULSE 73; RESP 16; TEMP 36.4; O2SAT 98
[2024-08-05] MEDS: HYDROcodone/acetaminophen (*CRX) 5-325 MG TABLET 1 TAB PO (23:39)
[2024-08-05] MEDS: CYCLOBENZAPRINE HCL 10 MG TABLET PO (23:39)
--- NOTE | 2024-08-06 00:02 | PC.NURSE ---
Upon discharge patient was upset that he was not getting prescribed any pain medication. This nurse attempted to educate patient about OTC pain medication and Flexeril that was prescribed to patient. Patient began saying you fucking people. If you you're not gonna give me pain medication then just let me fucking go home. Patient began to ambulate with nurse to waiting room and still continued to say you fucking people. Now I have to wait in the waiting room until morning . ED security called.
== END 2024-08-06 00:06 | disposition home or self-care (01) ==
PROVIDERS: Emergency Provider Emergency Medicine; PCP Internal Medicine Gastroenterology
DX: M54.50 Low back pain, unspecified (principal); S70.01XA Contusion of right hip, initial encounter; W00.0XXA Fall on same level due to ice and snow, initial encounter; I25.10 Atherosclerotic heart disease of native coronary artery without angina pectoris; I10 Essential (primary) hypertension; E78.5 Hyperlipidemia, unspecified; K21.9 Gastro-esophageal reflux disease without esophagitis; F20.9 Schizophrenia, unspecified; Z86.19 Personal history of other infectious and parasitic diseases; F17.210 Nicotine dependence, cigarettes, uncomplicated
CPT/HCPCS: 72131; 72192; 73502; 99284; A9270

== ENCOUNTER 2025-05-18 18:56 | Emergency (ER) | payer OTHER, SELFPAY ==
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
[2025-05-18 19:03] VITALS: BP 124/69; PULSE 67; RESP 18; TEMP 36.5; O2SAT 98
== END 2025-05-18 19:20 | disposition home or self-care (01) ==
PROVIDERS: Emergency Provider Nurse Practitioner Family
DX: Z76.0 Encounter for issue of repeat prescription (principal); I25.10 Atherosclerotic heart disease of native coronary artery without angina pectoris; I25.2 Old myocardial infarction; I10 Essential (primary) hypertension; E78.5 Hyperlipidemia, unspecified; F17.210 Nicotine dependence, cigarettes, uncomplicated; F12.90 Cannabis use, unspecified, uncomplicated; K21.9 Gastro-esophageal reflux disease without esophagitis; Z95.5 Presence of coronary angioplasty implant and graft; J44.9 Chronic obstructive pulmonary disease, unspecified; M79.7 Fibromyalgia; K76.0 Fatty (change of) liver, not elsewhere classified; F32.9 Major depressive disorder, single episode, unspecified
CPT/HCPCS: 99211; G0463

== ENCOUNTER 2025-06-20 09:14 | Emergency (ER) | payer OTHER, SELFPAY ==
--- NOTE | ~2025-06-20 | XR_ITS ---
EXAMINATION: XR chest 2V 06/20/2025 10:15 INDICATION: Dizziness PROCEDURE: 2 view chest COMPARISON: 01/13/2024 FINDINGS: The lungs are clear. Status post median sternotomy for CABG. The cardiomediastinal silhouette is within normal limits. There are no pleural effusions. There is no pneumothorax suspected. IMPRESSION: 1: NO ACUTE CARDIOPULMONARY DISEASE. Reviewed, dictated and finalized at location O. EDORING SUPERINTENDENT
[2025-06-20 09:17] VITALS: BP 151/97; PULSE 76; RESP 17; TEMP 36.4; O2SAT 99
--- NOTE | 2025-06-20 09:24 | ECG_ITS ---
Test Date: 2025-06-20 09:30:05 Measurements Intervals [place] Rate: 64 P: 72 OK: 149 QRS: -29 QRSD: 97 T: 87 QT: 426 QTc: 442 Interpretive Statements SINUS RHYTHM POSSIBLE LEFT ATRIAL ENLARGEMENT [-0.1mV P-WAVE IN V1/V2] ANTEROSEPTAL MYOCARDIAL INFARCTION , OF INDETERMINATE AGE [40+ ms Q WAVE IN V1-V4] Compared to ECG 01/13/2024 14:02:26 No significant changes Electronically Signed On 06-20-2025 13:36:11 RADIOLOGY MANAGER by Estrada Garcia M.D.
[2025-06-20 09:29] VITALS: PULSE 70
[2025-06-20 09:38] LABS: Add Urine Microscopic? NO; Appearance Urine Clear (Clear); Glucose Urine UA Negative (Negative); Hematocrit 46.0 % (42.0-52.0); Hemoglobin 15.8 g/dL (14.0-18.0); Immature Granulocyte Percent A 0.7 % (0-0.5); Leukocyte Esterase Ur Negative LEU/UL (Negative); Lymphocytes Absolute Auto 1.48 K/mm3 (0.9-3.2); Mean Corpuscular HGB Conc 34.3 g/dl (32-36); Mean Corpuscular Hemoglobin 32.7 pg (26-34); Mean Corpuscular Volume 95.2 fl (80-100); Nitrate Urine Negative (Negative); Nucleated Red Blood Cells Absolute Auto 0.000 K/mm3 (0.0-0.012); Nucleated Red Blood Cells Perc 0.0 % (0.0-0.2); Platelet Count Result 178 k/mm3 (150-375); Red Blood Count 4.83 M/mm3 (4.6-6.20); Specific Grav Ur 1.020 (1.001-1.035); White Blood Count 9.4 K/mm3 (4.5-10.0)
[2025-06-20 09:39] VITALS: RESP 20
[2025-06-20 10:02] LABS: Alanine Aminotransferase 29 U/L (6-50); Albumin Level 5.1 g/dL (3.5-5.1); Alkaline Phosphatase 104 U/L (38-126); Anion Gap 13 mmol/L (4-12); Aspartate Amino Transferase 35 U/L (17-59); Bilirubin,Total 0.8 mg/dL (0.2-1.3); Blood Urea Nitrogen 16 mg/dL (9-20); Calcium 9.9 mg/dL (8.4-10.2); Carbon Dioxide 18 mmol/L (22-30); Chloride 111 mmol/L (98-107); Estimated CRCL calculation 76 ml/min; Estimated Glomerular Filt Rate > 60; Glucose 92 mg/dL (65-110); Potassium 3.6 mmol/L (3.4-5.0); Sodium 142 mmol/L (137-145); Total Protein 8.4 g/dL (6.3-8.2)
[2025-06-20 10:16] LABS: Cannabinoid Screen Urine Positive (Negative)
[2025-06-20 10:30] VITALS: BP 149/92; PULSE 77; RESP 22; O2SAT 100
[2025-06-20 10:51] LABS: Troponin I < 0.012 ng/mL (0.000-0.034)
--- OUTSIDE RECORDS SUMMARY | 2025-06-20 10:53 | XMS_ITS ---
Author Organization [facility] Address [address] [place] [address] Phone Care Team Providers Care Emergency Vehicle Operator Name Role Phone FREEMAN JIN MD Primary Care Provider Unavail able Plan of Treatment Instructions to patient Intervention and counseling on cessation of tobacco use : Patient recieved smoking cessation handout Last Documented On 0 10:46AM ; [facility] Assessments Includes: Assessments for all patient encounters Findings Encounter Date Chronic pain syndrome PAIN MANAGEMENT NE W CONSULT with EZRA DUMONT [facility] 04/05/2020 Last Documented On 0 9:32AM ; [facility] senior care use of opiate analgesic PAIN M ANAGEMENT NEW CONSULT with EZRAJOSE DUMONT [facility] 04/05/2020 Last Documented On 0 9:32AM ; [facility] Lumbar radiculopathy PAIN MANAGEMENT NEW CONSULT with EZAR DUMONT [facility] 04/05/2020 Last Documented On 0 9:32AM ; [facility] Instructions Includes: Instructions for all patient encounters Instructions to patient Intervention and counseling on cessation of tobacco use : Patient recieved smoking cessation handout Last Documented On 0 10:46AM ; [facility] Medical Equipment - Implanted Devices Includes: Current and historical Devices No Medical Equipment Recorded Medications Includes: Current and historical Medications Current Medications (continue as prescribed) Famotidine 20 MG Oral Tablet 04/05/2020 Provider: Diagnosis: Last Documented On 0 10:47AM By Carla CARPENTER ; [facility] Citalopram Hydrobromide 20 MG Oral Tablet 04/05/2020 Provider: Diagnosis: Last Documented On 0 10:47AM By Carla CARPENTER ; [facility] Clopidogrel Bisulfate 75 MG Oral Tablet 04/05/2020 P rovider: Diagnosis: Last Documented On 0 10:47AM By Carla CARPENTER ; [facility] Carvedilol 3.125 MG Oral Tablet 04/05/2020 Provider: Diagnosis: Last Documented On 0 10:47AM By Carla CARPENTER ; [facility] Atorvastatin Calcium 10 MG Oral Tablet 04/05/2020 Pr ovider: Diagnosis: Last Documented On 0 10:48AM By Carla CARPENTER ; [facility] Isosorbide Mononitrate ER 30 MG Oral Tablet Extended Release 24 Hour 04/05/2020 Provider: Diagnosis: Last Documented On 0 10:48AM By Carla CARPENTER ; [facility] Nitroglycerin 0.4 MG Sublingual Tablet Sublingual 03/26 Provider: Diagnosis: Last Documented On 0 10:48AM By Carla CARPENTER ; [facility] Vitamin B12 TR 2000 MCG Oral Tablet Extended Release 0 04/05/2020 Provider: Diagnosis: Last Documented On 0 10:49AM By Carla CARPENTER ; [facility] HYDROcodone-Acetaminophen 5-325 MG Oral Tablet 020 Provider: Diagnosis: Last Documented On 0 10:55AM By Carla CARPENTER ; [facility] diazePAM 10 MG Oral Tablet 04/05/2020 Provider: Diagnosis: Last Documented On 0 11:11AM By Carla CARPENTER ; [facility] Past Medications on file diazePAM 10 MG Oral Tablet 04/05/2020 - 04/05/2020 Pro vider: Diagnosis: Last Documented On 0 11:11AM By Carla CARPENTER ; [facility] Medications Administered Includes: Administered Medications in patient's chart No Administered Medications Recorded Results Includes: Results from 06/20/2024 through 06/20/2025 No Results Recorded For Specified Dates History of Present Illness History of Present Illness not supported for this document type No History of Present Illness Recorded Social History Description Last Updated Smoker 04/05/2020 Last Documented On 0 9:32AM ; [facility] Smoking Status Unknown Medical History Includes: Medical History in patient's chart Description Last Updated History of glaucoma 04/05/2020 Last Documented On 0 9:32AM ; [facility] No previous psychiatric treatment 2019 Last Documented On 0 9:32AM ; [facility] Family History Includes: Family History in patient's chart No Family History Recorded Review of Systems Review of Systems not supported for this document type No Review of Systems Recorded Mental Status No Mental Status Recorded Functional Status No Functional Status Recorded Physical Exam Physical Exam not supported for this document type No Physical Exam Recorded Allergies Includes: Active, inactive, and resolved Allergies No Known Allergies Insurance Includes: Active Insurance Policies Plan Name Member ID Group # Subscriber Relationship Effect katherine Dates - [facility] [id number] ELLE Valiente Clinical Notes Includes: Signed Clinical Notes starting from 08/14/2022 No Clinical Notes Recorded
--- OUTSIDE RECORDS SUMMARY | 2025-06-20 10:53 | XMS_ITS | Clinical Summary ---
Author Organization [facility] Address [address] [place] [address] Phone Care Team Providers Care Fleet Maintenance Manager Name Role Phone FREEMAN JIN MD Primary Care Provider Unavail able Reason for Visit and Chief Complaint PAIN MANAGEMENT FOLLOW UP Plan of Treatment No Plan of Treatment Recorded Assessments Includes: Assessments from this encounter No Assessments Recorded Medical Equipment - Implanted Devices Includes: Current Devices No Medical Equipment Recorded Medications Includes: Medications discussed during this encounter and other current Medications Current Medications (continue as prescribed) Famotidine 20 MG Oral Tablet 04/05/2020 Provider: Diagnosis: Last Documented On 0 10:47AM By Carla CARPENTER ; [facility] Citalopram Hydrobromide 20 MG Oral Tablet 04/05/2020 Provider: Diagnosis: Last Documented On 0 10:47AM By Carla CARPENTER ; [facility] Clopidogrel Bisulfate 75 MG Oral Tablet 04/05/2020 P rovider: Diagnosis: Last Documented On 0 10:47AM By Carla CARPENTER ; [facility] Carvedilol 3.125 MG Oral Tablet 04/05/2020 Provider: Diagnosis: Last Documented On 0 10:47AM By Carla CARPENTER ; [facility] Atorvastatin Calcium 10 MG Oral Tablet 04/05/2020 Pr ovider: Diagnosis: Last Documented On 0 10:48AM By Carla CARPENTER ; [facility] Isosorbide Mononitrate ER 30 MG Oral Tablet Extended Release 24 Hour 04/05/2020 Provider: Diagnosis: Last Documented On 0 10:48AM By Carla CARPENTER ; [facility] Nitroglycerin 0.4 MG Sublingual Tablet Sublingual 03/26 Provider: Diagnosis: Last Documented On 0 10:48AM By Carla CARPENTER ; [facility] Vitamin B12 TR 2000 MCG Oral Tablet Extended Release 0 04/05/2020 Provider: Diagnosis: Last Documented On 0 10:49AM By Carla CARPENTER ; [facility] HYDROcodone-Acetaminophen 5-325 MG Oral Tablet 020 Provider: Diagnosis: Last Documented On 0 10:55AM By Carla CARPENTER ; [facility] diazePAM 10 MG Oral Tablet 04/05/2020 Provider: Diagnosis: Last Documented On 0 11:11AM By Carla CARPENTER ; [facility] Medications Administered Includes: Administered Medications from this encounter No Administered Medications Recorded Results Includes: Results discussed during this encounter No Results Recorded For Specified Dates History of Present Illness Includes: History of Present Illness from this encounter No History of Present Illness Recorded Social History No Social History Recorded - Smoking Status Unknown Medical History Includes: Medical History addressed during this encounter No Medical History Recorded Family History Includes: Family History addressed during this encounter No Family History Recorded Review of Systems Includes: Review of Systems from this encounter No Review of Systems Recorded Mental Status Includes: Mental Status from this encounter No Mental Status Recorded Functional Status Includes: Functional Status from this encounter No Functional Status Recorded Physical Exam Includes: Physical Exam from this encounter No Physical Exam Recorded Allergies Includes: Active Allergies No Known Allergies Insurance Includes: Active Insurance Policies Plan Name Member ID Group # Subscriber Relationship Effect katherine Dates - [facility] [id number] ELLE BIANCHI Self Clinical Notes Includes: Clinical Notes from this encounter No Clinical Notes Recorded
--- OUTSIDE RECORDS SUMMARY | 2025-06-20 10:53 | XMS_ITS | Clinical Summary ---
Author Organization [facility] Address [address] [place] [address] Phone Care Team Providers Care Complex Care Nurse Name Role Phone FREEMAN JIN MD Primary [...] On 0 10:47AM By Carla CARPENTER ; [facility] Citalopram Hydrobromide 20 MG Oral Tablet 04/05/2020 Provider: Diagnosis: Last Documented On 0 10:47AM By Carla CARPENTER ; [facility] Clopidogrel Bisulfate 75 MG Oral Tablet 04/05/2020 P rovider: Diagnosis: Last Documented On 0 10:47AM By Carla CARPENTER ; [facility] Carvedilol 3.125 MG Oral Tablet 04/05/2020 Provider: Diagnosis: Last Documented On 0 10:47AM By Carla CARPENTER ; [facility] Atorvastatin Calcium 10 MG Oral Tablet 04/05/2020 Pr ovider: Diagnosis: Last Documented On 0 10:48AM By Carla CARPENTER ; [facility] Isosorbide Mononitrate ER 30 MG Oral Tablet Extended Release 24 Hour 04/05/2020 Provider: Diagnosis: Last Documented On 0 10:48AM By Carla CARPENTER ; [facility] Nitroglycerin 0.4 MG Sublingual Tablet Sublingual 03/26 Provider: Diagnosis: Last Documented On 0 10:48AM By Carla CARPENTER ; [facility] Vitamin B12 TR 2000 MCG Oral Tablet Extended Release 0 04/05/2020 Provider: Diagnosis: Last Documented On 0 10:49AM By Carla CARPENTER ; [facility] HYDROcodone-Acetaminophen 5-325 MG Oral Tablet 020 Provider: Diagnosis: Last Documented On 0 10:55AM By Carla CARPENTER ; [facility] diazePAM 10 MG Oral Tablet 04/05/2020 Provider: Diagnosis: Last Documented On 0 11:11AM By Carla CARPENTER ; [facility] Medications Administered Includes: Administered Medications from this [...] # Subscriber Relationship Effect katherine Dates - [facility] [id number] ELLE BIANCHI Self Clinical Notes Includes: Clinical Notes from this encounter No Clinical Notes Recorded
--- OUTSIDE RECORDS SUMMARY | 2025-06-20 10:53 | XMS_ITS | Clinical Summary ---
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 Gender Identity Not on file Sexual Orientation Not on file Plan of Treatment Health Maintenance Due Date Last Done Comments Hepatitis C Virus (HCV) Screening 1960 TdaP Immunization 1960 Cologuard 2005 Colonoscopy 2005 Colorectal Cancer Screening 2005 Immunochemical Fecal Occult Blood 2005 Pneumococcal Immunization (50+ years) (1 of 1 - PCV) 2010 Zoster Immunization (1 of 2) 2010 Influenza Immunization (#1) 03/26/202503/27, 05/19/2017, 05/19/2016, Additional history exists SARS-COV-2 Immunization ( season) 2025 07/23/2021, 12/21/2020, 11/29/2020 Respiratory Syncytial Virus (RSV) Immunization (Adult) (1 - 1-dose 75+ series) 10/06/2035 Hepatitis B Immunization Aged Out No longer eligible based on patient's age to complete this topic Human Papillomavirus (HPV) Immunization Aged Out No longer eligible based on patient's age to complete this topic Meningococcal Immunization (ACWY) Aged Out No longer eligible based on patient's age to complete this topic Rotavirus Immunization Aged Out No lo nger eligible based on patient's age to complete this topic Insurance MEDICAID [employer]
--- OUTSIDE RECORDS SUMMARY | 2025-06-20 10:53 | XMS_ITS | Encounter Summary ---
Author Organization [facility] Address [address] [place] [address] Care Team Providers Care Drip Pumper Name Role Phone Wilver Ledesma MD Primary Care Provider Reinier Pressley Primary Care Provider + Reason for Referral * Surgical (Routine) - Closed Specialty Diagnoses / Procedures Referred By Contac t Referred To Contact Diagnoses Lumbar radiculopathy Procedures Case request operating room: INJECTION EPIDURAL LUMBAR INTERLAMINAR L4-5 Monika Interiano NP 3 [facility] [address] [place] [id number] Phone: tel: [phone] fax: Referral ID Status Reason Start Date Expiration Date Visits Re quested Visits Authorized [id number] Closed 09/28/2017 10/29/2018 1 1 UCTION CLOTH CUTTER Encounter Details Date Type Department Care Team (Late st Contact Info) Description 09/28/2017 Prep for Procedure [facility] [place] [id number] [phone] Monika Interiano NP 3 [facility] [address] [place] [phone] (Work) Social History Tobacco Use Types Packs/Day Years Used Date Smoking Tobacco: Every Day Cigarettes 2 48 Smokeless Tobacco: Never Alcohol Use Standard Drinks/Week Comments No 0 (1 standard drink = 0.6 oz pur e alcohol) Sex and Gender Information Value Date Recorded Sex Assigned at Not on file Legal Sex Male 5:15 PM CDT Gender Identity Not on file Sexual Orientation Not on file documented as of this encounter Plan of Treatment Scheduled Orders Name Type Priority Associated Diagnoses Orde r Schedule Case request operating room: INJECTION EPIDURAL LUMBAR INTERLAMINAR L4-5 Case Request Routine Lumbar radiculopathy Once for 1 Occurrences starting 09/28/2017 until 09/28/2017 documented as of this encounter Visit Diagnoses Diagnosis Lumbar radiculopathy- Primary Thoracic or lumbosacral neuritis or radiculitis, unspecified documented in this encounter Care Teams Drip Pumper Relationship Specialty Start Date End Date Wilver Ledesma MD PCP - General 02/11/17 Reinier Mar PA PCP - General PHYSICIAN CONTRACTING ENGINEER 03/01/18 documented as of this encounter
--- OUTSIDE RECORDS SUMMARY | 2025-06-20 10:53 | XMS_ITS ---
Care Plan - [facility] Created on: June 20, 2025 ELLE BIANCHI : 1960 Sex: Male Author Organization [facility] Address [address] [place] [address] Phone Care Team Providers Care Qa Automation Engineer Name Role Phone FREEMAN JIN MD Primary Care Provider Unavail able
--- OUTSIDE RECORDS SUMMARY | 2025-06-20 10:53 | XMS_ITS | Clinical Summary ---
Author Organization [facility] Address [address] [place] [address] Phone Care Team Providers Care Health Informatics Advisor Name Role Phone FREEMAN JIN MD Primary Care Provider Unavail able Reason for Visit and Chief Complaint NO SHOW Plan of Treatment No Plan of Treatment Recorded Assessments Includes: Assessments from this encounter No Assessments Recorded Medical Equipment - Implanted Devices Includes: Current Devices No Medical Equipment Recorded Medications Includes: Medications discussed during this encounter and other current Medications Current Medications (continue as prescribed) Famotidine 20 MG Oral Tablet 04/05/2020 Provider: Diagnosis: Last Documented On 0 10:47AM By Carla CARPENTER ; [facility] Citalopram Hydrobromide 20 MG Oral Tablet 04/05/2020 Provider: Diagnosis: Last Documented On 0 10:47AM By Carla CARPENTER ; [facility] Clopidogrel Bisulfate 75 MG Oral Tablet 04/05/2020 P rovider: Diagnosis: Last Documented On 0 10:47AM By Carla CARPENTER ; [facility] Carvedilol 3.125 MG Oral Tablet 04/05/2020 Provider: Diagnosis: Last Documented On 0 10:47AM By Carla CARPENTER ; [facility] Atorvastatin Calcium 10 MG Oral Tablet 04/05/2020 Pr ovider: Diagnosis: Last Documented On 0 10:48AM By Carla CARPENTER ; [facility] Isosorbide Mononitrate ER 30 MG Oral Tablet Extended Release 24 Hour 04/05/2020 Provider: Diagnosis: Last Documented On 0 10:48AM By Carla CARPENTER ; [facility] Nitroglycerin 0.4 MG Sublingual Tablet Sublingual 03/26 Provider: Diagnosis: Last Documented On 0 10:48AM By Carla CARPENTER ; [facility] Vitamin B12 TR 2000 MCG Oral Tablet Extended Release 0 04/05/2020 Provider: Diagnosis: Last Documented On 0 10:49AM By Carla CARPENTER ; [facility] HYDROcodone-Acetaminophen 5-325 MG Oral Tablet 020 Provider: Diagnosis: Last Documented On 0 10:55AM By Carla CARPENTER ; [facility] diazePAM 10 MG Oral Tablet 04/05/2020 Provider: Diagnosis: Last Documented On 0 11:11AM By Carla CARPENTER ; [facility] Medications Administered Includes: Administered Medications from [...] Allergies Includes: Active Allergies No Known Allergies Encounters Encounter Provider Location Date Check-In Time Check-Out Time Diagnosis NO SHOW EZRA [facility]- 05/24/2020 11:36AM 11:59PM Insurance Includes: Active Insurance Policies Plan Name Member ID Group # Subscriber Relationship Effect katherine Dates - [facility] [id number] ELLE BIANCHI Self Clinical Notes Includes: Clinical Notes from this encounter No Clinical Notes Recorded
--- OUTSIDE RECORDS SUMMARY | 2025-06-20 10:53 | XMS_ITS | Encounter Summary ---
Author Organization [facility] Address [address] [place] [address] Care Team Providers Care Croze Cutter Name Role Phone Seymour Cunningham MD Primary Care Provider [phone] Reason for Visit * Reason Comments Refill Request Encounter Details Date Type Department Care Team (Late st Contact Info) Description 09/04/2024 Refill [facility] - Plastic Surgery [address] [place] [address], [place] [id number] Sara Dias MD [address] [place] [address] [place] [address] Refill Request Social History Tobacco Use Types Packs/Day Years Used Date Smoking Tobacco: Every Day Cigarettes Smokeless Tobacco: Never Alcohol Use Standard Drinks/Week Comments No 0 (1 standard drink = 0.6 oz pur e alcohol) AUDIT-C Answer Date Recorded Q1: How often do you have a drink containing alcohol? Never 02/26/2024 Q2: How many drinks containi ng alcohol do you have on a typical day when you are drinking? Patient does not drink Q3: How often do you have si x or more drinks on one occasion? Never 02/26/2024 Overall Financial Resource Strain (CARDIA) Gabye r Date Recorded How hard is it for you to pa y for the very basics like food, housing, medical care, and heating? Very hard 02/26/2024 [facility] - Occupational Stress Questionnaire Answer Date Recorded Do you feel stress - tense, restless, nervous, or anxious, or unable to sleep at night because your mind is troubled all the time - these days? Very much 02/26/2024 Hunger Vital Sign Answer Date Recorded Within the past 12 months, y ou worried that your food would run out before you got the money to buy more. Sometimes true Within the past 12 months, t he food you bought just didn't last and you didn't have money to get more. Sometimes true 09/2023 PRAPARE - Transportation Answer Date Re corded In the past 12 months, has l ack of transportation kept you from medical appointments or from getting medications? Yes 09/2023 In the past 12 months, has l ack of transportation kept you from meetings, work, or from getting things needed for daily living? Yes 02/26/2024 Housing Stability Vital Sign Answer Jakob e Recorded In the last 12 months, was t here a time when you were not able to pay the mortgage or rent on time? No 02/26/2024 In the last 12 months, how many places have you lived? 1 02/26/2024 In the last 12 months, was t here a time when you did not have a steady place to sleep or slept in a long-term (including now)? 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 Answer Date of Assessment Author No 02/26/2024 8:45 PM Kulwant Elmore RN * Is person blind or have serious difficulty seeing? Answer Date of Assessment Author No 02/26/2024 8:45 PM Kulwant Elmore RN * Does person have serious difficulty walking/climbing stairs? Answer Date of Assessment Author No 02/26/2024 8:45 PM Kulwant Elmore RN * Does person have difficulty dressing/bathing? Answer Date of Assessment Author No 02/26/2024 8:45 PM Kulwant Elmore RN * Does person have difficulty doing errands alone? Answer Date of Assessment Author No 02/26/2024 8:45 PM Kulwant Elmore RN documented as of this encounter Mental Status * Does person have difficulty concentrating/remembering/making decisions? Answer Entry Date Author No 02/26/2024 8:45 PM CDT Kulwant Padgett RN documented in this encounter Plan of Treatment Not on file documented as of this encounter Visit Diagnoses Not on filedocumented in this encounter Care Teams Croze Cutter Relationship Specialty Start Date End Date Seymour Cunningham MD [address] [place] [address] PCP - General Gastroenterology 02/15/24 documented as of this encounter
--- OUTSIDE RECORDS SUMMARY | 2025-06-20 10:53 | XMS_ITS | Clinical Summary ---
Author Organization [facility] Address [address] [place] [address] Phone Care Team Providers Care Manager Power Name Role Phone FREEMAN JIN MD Primary Care Provider Unavail able Reason for Visit and Chief Complaint The Chief Complaint is: Pt here today for low back pain that radiates down left leg. He states 3 years ago he has a metal hilda placed into left thigh after having a fall. Was seeing Dr Aj Haynes for 6years and then she stopped accepting his insurance. patient had heart attack 3 years ago and hasnt returned to a pain clinic since. Injections were helpful, no PT. no recent imaging. Referred by diane bonilla Plan of Treatment Instructions to patient Intervention and counseling on cessation of tobacco use : Patient recieved smoking cessation handout Last Documented On 0 10:46AM ; [facility] Assessments Includes: Assessments from this encounter Findings - Lumbar radiculopathy [M54.16 - Radiculopathy, lumbar region] - Last Documented On 04/12/2020 9:32AM ; [facility] - Chronic pain syndrome [G89.4 - Chronic pain syndrome] - Last Documented On 04/12/2020 9:32AM ; [facility] - nursing home use of opiate analgesic [Z79.891 - nursing home (current) use of opiate analgesic] - Last Documented On 04/12/2020 9:32AM ; [facility] Instructions Includes: Instructions from this encounter Instructions to patient Intervention and counseling on cessation of tobacco use : Patient recieved smoking cessation handout Last Documented On 0 10:46AM ; [facility] Medical Equipment - Implanted Devices Includes: Current Devices No Medical Equipment Recorded Medications Includes: Medications discussed during this encounter and other current Medications Discontinued / Stopped on this date on 04/05/2020 diazePAM 10 MG Oral Tablet Provider: Diagnosis: Last Documented On 0 11:11AM By Carla CARPENTER ; [facility] Current Medications (continue as prescribed) Famotidine 20 MG Oral Tablet 04/05/2020 Provider: Diagnosis: Last Documented On 0 10:47AM By Carla CARPENTER ; [facility] Citalopram Hydrobromide 20 MG Oral Tablet 04/05/2020 Provider: Diagnosis: Last Documented On 0 10:47AM By Carla CARPENTER ; [facility] Clopidogrel Bisulfate 75 MG Oral Tablet 04/05/2020 P rovider: Diagnosis: Last Documented On 0 10:47AM By Carla CARPENTER ; [facility] Carvedilol 3.125 MG Oral Tablet 04/05/2020 Provider: Diagnosis: Last Documented On 0 10:47AM By Carla CARPENTER ; [facility] Atorvastatin Calcium 10 MG Oral Tablet 04/05/2020 Pr ovider: Diagnosis: Last Documented On 0 10:48AM By Carla CARPENTER ; [facility] Isosorbide Mononitrate ER 30 MG Oral Tablet Extended Release 24 Hour 04/05/2020 Provider: Diagnosis: Last Documented On 0 10:48AM By Carla CARPENTER ; [facility] Nitroglycerin 0.4 MG Sublingual Tablet Sublingual 03/26 Provider: Diagnosis: Last Documented On 0 10:48AM By Carla CARPENTER ; [facility] Vitamin B12 TR 2000 MCG Oral Tablet Extended Release 0 04/05/2020 Provider: Diagnosis: Last Documented On 0 10:49AM By Carla CARPENTER ; [facility] HYDROcodone-Acetaminophen 5-325 MG Oral Tablet 020 Provider: Diagnosis: Last Documented On 0 10:55AM By Carla CARPENTER ; [facility] diazePAM 10 MG Oral Tablet 04/05/2020 Provider: Diagnosis: Last Documented On 0 11:11AM By Carla CARPENTER ; [facility] Medications Administered Includes: Administered Medications from this encounter No Administered Medications Recorded Vital Signs Includes: Vital Signs from this encounter Vital Name 04/05/2020 10:49A Blood Pressure Sitting L 130/74 Temp-Oral (F) 97 Height (in) 72 Weight (lb) 190 Body Mass Index (kg/m2) 25.8 Body Surface Area (m2) 2.1 Pain Level 9 Last Documented: On 04/05/2020 10:50A M ; [facility] Results Includes: Results discussed during this encounter No Results Recorded For Specified Dates History of Present Illness Includes: History of Present Illness from this encounter HPI Assessment Score Date PHQ-9 16 04-05-20 BPI: CHEIKH: QDASH: KS-CTQ: MiDAS: SOAPP-R: 19 mod 04-05-20 Pain Location: Low Back Quality: deep, heavyRadiation: both thighsSeverity: severeTiming: continuousAssociated Sx: weakness, falls, tremors, difficulty walkingAggravating Factors: standing , walking, lifting, bendingPast Tx: injections, PM, meds ELLE BIANCHI is a 59 year old male. - Allergy list reviewed - Problem list reviewed - Medication reconciliation performed - Sexual complaints Discussion: Patient is a 59-year-old male referred for evaluation and treatment. He describes chronic low back pain for the past eight years with no inciting event or trauma. Pain radiates to the anterolateral thighs. He denies numbness or tingling and there is no motor loss. Patient was treated by Dr. Haynes in [place] for 6 to 7 years until insurance changes limited treatment. He has been utilizing ice, activity modification, Tylenol under the direction of his physician for several months. 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 Despite this, he is using ibuprofen as needed. We discussed risks associated and I've discouraged him to stop the use of NSAIDs. Gabapentin has been used in the past, admittedly not taking it regularly. MRI ordered by pcp was denied 2 weeks ago. Hydrocodone is used as needed with mild benefit Imaging: All relevant imaging available was personally reviewed with the patient today with the following tests and results noted: [None available. Will obtain reports, patient will provide images at follow up.] Social History Description Last Updated Smoker 04/05/2020 Last Documented On 0 9:32AM ; [facility] Smoking Status Unknown Procedures and Surgical History Includes: Procedures from this encounter Procedures Code Diagnosis Performing Provider Service L ocation Service Date intervention and counseling on cessation of tobacco use : Patient recieved smoking cessation handout 4000F Last Documented On 0 10:46AM ; [facility] use of tobacco assessment performed 1000F Last Documented On 0 10:22AM ; [facility] review of medications documented 1160F Last Documented On 0 10:22AM ; [facility] screening for adult depression: impressi on and score Last Documented On 0 10:27AM ; [facility] standardized depression screening: posit katherine for symptoms Last Documented On 0 10:27AM ; [facility] Clinical summary provided to patient Last Documented On 0 10:22AM ; [facility] Medical History Includes: Medical History addressed during this encounter Description Last Updated History of glaucoma 04/05/2020 Last Documented On 0 9:32AM ; [facility] No previous psychiatric treatment 2019 Last Documented On 0 9:32AM ; [facility] Family History Includes: Family History addressed during this encounter No Family History Recorded Review of Systems Includes: Review of Systems from this encounter Systemic: No systemic symptoms other then noted. Feeling tired. No recent weight loss. Head: Headache. Neck: No neck pain. Otolaryngeal: No otolaryngeal symptoms other than noted. Epistaxis. Cardiovascular: No cardiovascular symptoms other than noted. Cold hands or feet. Pulmonary: Shortness of breath, expressed as feeling short of breath, and wheezing. Gastrointestinal: Decreased appetite. No difficulty chewing and no dysphagia. Nausea, abdominal pain, bowel movement frequency has recently changed, diarrhea, and constipation. Genitourinary: No genitourinary symptoms other than noted. Hematuria, urinary frequency was increased, initiating urination requires straining, urinary loss of control, and testicular pain. Endocrine: Polydipsia, temperature intolerance, and muscle weakness. Hematologic: Easy bleeding and a tendency for easy bruising. Musculoskeletal: No musculoskeletal symptoms other than noted. Back pain, muscle aches, pain localized to one or more joints, and joint swelling localized to one or more joints. Neurological: No neurological symptoms other than noted. Dizziness. No fainting passing out with needles or medical procedures. Memory lapses or loss, a tremor, and numbness. Psychological: Feeling nervous and depression. No sleep apnea. Skin: No skin symptoms other than noted. Skin lesion: skin wound is slow to heal. Mental Status Includes: Mental Status from this encounter Description Memory lapses or loss Functional Status Includes: Functional Status from this encounter No Functional Status Recorded Physical Exam Includes: Physical Exam from this encounter Allergies Includes: Active Allergies No Known Allergies Encounters Encounter Provider Location Date Check-In Time Check-Out Time Diagnosis PAIN MANAGEMENT NEW CONSULT E[facility]RA [facility] 04/05/20 20 10:30AM 11:19AM Chronic Pain Syndrome,Lumb ar Radiculopathy ,Retirement Use of Opiate Analgesic Insurance Includes: Active Insurance Policies Plan Name Member ID Group # Subscriber Relationship Effect katherine Dates - [facility] [id number] ELLE BIANCHI Self Clinical Notes Includes: Clinical Notes from this encounter No Clinical Notes Recorded
--- OUTSIDE RECORDS SUMMARY | 2025-06-20 10:53 | XMS_ITS | Clinical Summary ---
Author Organization [facility] Address [address] [place] [address] Care Team Providers Care Hydraulic Technician Name Role Phone Seymour Cunningham MD Primary Care Provider [phone] Source Comments [facility],non-owned Affiliates and Associated Physician Practices is amultiple site organization consisting of ambulatory clinics and hospital sitesin [place], [place], [place] and [place]. This disclosure is being madepursuant to the Care Everywhere program and may not contain all information available regarding this patient. Last updated 18.[facility] Allergies No known active allergies Medications * Be aware that medications may not be up to date on this document. Alwaysverify current medications with the patient. citalopram (CELEXA) 20 MG tablet Take 1 (one) tablet by mouth DAILY 2 7 Active cyclobenzaprine (FLEXERIL) 10 MG tablet Take 2 (two) tablets by mouth DAILY 2 7 Active Pancrelipase, Wmn-Uvay-Hegc, (CREON) 14801 UNITS Take 1 (one) capsule by mouth DAILY 11 7 Active nitroGLYCERIN (Nitrostat) 0.4 MG tablet Dissolve 1 (one) tablet under the tongue as needed (Chest pain) Active clopidogrel (plaVIX) 75 MG tabletIndicatio ns:Carotid Artery Stenting Take 1 (one) tablet by mouth once daily Reasons: Carotid Artery Stenting Active acetaminophen (Tylenol) 500 MG tablet Take 2 (two) tablets by mouth every 8 hours Maximum allowable Acetaminophen amount = 4 Grams (4000 mg) / 24 hours. 4 Active gabapentin (Neurontin) 800 MG tablet Take 1.5 (one and one-half) tablets by mouth 3 times daily Active oxyCODONE, immediate release, (Roxicodone) 5 MG tabletIndicatio ns:Cellulitis of unspecified part of limb TAKE ONE TABLET BY MOUTH EVERY 6 HOURS NEEDED FOR PAIN 8 tablet 4 Active atorvastatin (Lipitor) 80 MG tablet TAKE ONE TABLET BY MOUTH EVERY NIGHT AT BEDTIME 90 tablet 4 Active cephalexin (Keflex) 500 MG capsule TAKE ONE CAPSULE BY MOUTH FOUR TIMES A DAY FOR 6 DAYS 24 capsule 4 Active Active Problems Problem Noted Date Diagnosed Date Elevated C-reactive protein (CRP) 02/26/2024 Leukocytosis, unspecified type 02/26/2024 Cellulitis and abscess of hand 02/26/2024 Elevated erythrocyte sedimentation rate 02/26/20 Calculus of gallbladder with out cholecystitis without obstruction 10/09/2016 Hemangioma of intra-abdominal structures 017 Overview (10/25/2017): US 04/2016 liver normal in echogenicity and contour, stable 1.5cm hemangioma CT 05/2014 1.5cm liver hemangioma, stent in cbd, pneunobilia CT 12/2013 stable liver hemangioma, normal liver CT scan 08/09/13 s/p mcihael with biliary stent, 1.5 cm hemangioma, stable, normal liver MRI 03/2013 liver hemangioma, biliary dilation up to 1.2cm, possible stricture CT scan 02/2013 1.5 cm liver hemangioma Heartburn 10/09/2016 Chronic viral hepatitis C 10/09/2016 Overview (10/25/2017): HCV RNA 02/2016 2,770,000 Genotype 1a Labs 02/2016 Plt 183, Alb 4.6, AP 118, ALT 24, AST 24, T bili 0.6, INR 1.0 Labs 04/2016 Plt 220, ALB 4.2, AP 98, ALT 67, AST 46, T bili 0.4 Liver bx 08/23/2014 Stage 2 fibrosis Fibrosure 02/2016 F4 Spinal stenosis 10/09/2016 Chronic obstructive pulmonary disease 10/09/2016 Other chronic pancreatitis 10/09/2016 Overview (10/25/2017): MRI 03/2013 liver hemangioma, biliary dilation up to 1.2cm, possible stricture ERCP 06/2013 biliary dilation, smooth biliary stricture, s/p sphincterotomy and stenting ERCP 08/01/2014 biliary stent exchange ERCP 10/2014 stent removed, focal cholangiogram revealed a healed stricture EUS 04/2013 chronic pancreatitis, ductal dilation, possible stricture Anxiety disorder 10/09/2016 Major depressive disorder, single episode 2016 Fibromyalgia 10/09/2016 Social History Tobacco Use Types Packs/Day Years Used Date Smoking Tobacco: Every Day Cigarettes Smokeless Tobacco: Never Tobacco Cessation:Ready to Q uit: Not Asked; Counseling Given: Not Answered Alcohol Use Standard Drinks/Week Comments No 0 [...] Never 02/26/2024 Overall Financial Resource Strain (CARDIA) Answe r Date Recorded How hard is it for you to pa y for the very basics like food, housing, medical care, and heating? Very hard 02/26/2024 [facility] [place] [facility] - Occupational Stress [...] place to sleep or slept in a snf (including now)? 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 Gender Identity Not on file Sexual Orientation Not on file Last Filed Vital Signs Vital Sign Reading Time Taken Comments Blood Pressure 110/63 03/15/2024 11:40 AM CDT Pulse 96 03/15/2024 11:40 AM CDT Temperature 36.4 C (97.6 F) 03/15/2024 11:40 AM CDT Respiratory Rate 18 03/15/2024 11:40 AM CDT Oxygen Saturation 97% 03/15/2024 11:40 AM CDT Inhaled Oxygen Concentration - - Weight 80 kg (176 lb 6.4 oz) 03/15/2024 11:40 AM CDT Height 190.5 cm (6' 3) 03/15/2024 11:40 AM CDT Body Mass Index 22.05 03/15/2024 11:40 AM CDT Plan of Treatment Health Maintenance Due Date Last Done Comments COLOGUARD (AGES 45-75) - COLON CA SCREENING 1960 COLON MONITORING 1960 COLONOSCOPY - COLON CA SCREENING 1960 CT COLONOGRAPHY - COLON CA SCREENING 1960 Colorectal Cancer Screening 1960 FIT - COLON CA SCREENING 1960 FLEX SIG - COLON CA SCREENING 1960 LIPID TESTING 1960 HIV SCREENING 10/06/1975 DTAP/TDAP/TD VACCINES (1 - Tdap) 10/06/1979 PNEUMOCOCCAL VACCINE 50+ (1 of 2 - PCV) 10/06/1979 Respiratory Syncytial Virus (RSV) Vaccine Pt: or over 60 yrs (1 - Risk 50-74 years 1-dose series) 2010 ZOSTER VACCINE (1 of 2) 2010 HEPATITIS B VACCINE (1 of 3 - Risk 3-dose series) 2020 DEPRESSION SCREENING 07/26/2024 COVID-19 VACCINE ( season) 2025 07/23/2021 INFLUENZA VACCINE (#1) 2025 , 05/22/2020, 04/20/2019, Additional history exists HEPATITIS C SCREENING Completed 10/09/2016, 017 HIB VACCINE Aged Out No longer eligi ble based on patient's age to complete this topic HPV VACCINE Aged Out No longer eligi ble based on patient's age to complete this topic MENINGOCOCCAL (Group B) VACCINE SHARED DECISION-MAKING Aged Out No longer eligible based on patient's age to complete this topic MENINGOCOCCAL GROUPS A/C/Y/W VACCINE Aged Out No longer eligible based on patient's age to complete this topic Insurance [facility] Advance Directives * Full Code (Latest Code Status on File) Date Activated Date Inactivated Comments 02/26/2024 7:46 PM 03/01/2024 2:44 PM Care Teams Hydraulic Technician Relationship Specialty Start Date End Date Seymour Cunningham MD [address] [place] [address] PCP - General Gastroenterology 02/15/24
--- OUTSIDE RECORDS SUMMARY | 2025-06-20 10:54 | XMS_ITS | Continuity of Care Document ---
Author Organization [facility] Address [address] [place] [address] Assessment Encounter Date Assessment Date Assessment LastModified by Organization Details LastModified Time 04/05/2025 04/05/2025 I came in to see Mr Colin, I introduced myself and I proceeded with the history and physical. He was last seen by Dr Cunningham who has since retired on 12/28/2024. He made a request about his Clonazepam, I explained to him that I will not be able to refill this medication. He proceeded to say that he has been shaking like a leaf and he has been on this for 15 years and all we cared about was his insurance and that I was not willing to help him. I told him to go to the ER if he is in distress. A review of his records reveal that his UDS on 01/02/2025 was positive for Methamphetamines and Dr. Cunningham stopped his Clonazepam and Zolpidem. It was clear that this visit was not moving in the right direction, I stepped out and came in with a gear generator set up operator, Nettie Rich MA who was with me for the rest of the short visit. Mr Colin complained that he was only seen by Dr Cunningham once and YVONNE Ayon who no longer works here is his doctor. He made it clear that he was not interested in proceeding with this visit and asked for a copy of his records. [email or web address] Not available 04/05/2025 14:25:00 Plan of Treatment Reminders Order Date Submit Date Provider Last Modified By Organization Details Last Modified Time Details Appointments None record ed. Lab None record ed. Referral None record ed. Procedures None record ed. Surgeries None record ed. Imaging None record ed. Medication Orders None record ed. Patient TargetsNo targets recorded. Patient InstructionsNo instructions recorded. Reason for Referral None Reported. 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 Not Available [facility] 3 10:02:13 Chronic obstructi ve pulmonary disease 95046140 Active Not Available [facility] 3 10:02:13 Dental abscess 440580480 Active Not Available [facility] 3 10:02:13 Insomnia 632219813 Active Not Available [facility] 3 10:02:13 Fracture of shaft of femur 82493020 Active Not Available [facility] 3 10:02:13 Fracture of femur 03899872 Active Not Available [facility] 3 10:02:13 Abscess 968054717 Active Not Available [facility] 3 10:02:13 Nausea 184428146 Active Not Available [facility] 3 10:02:13 Solitary nodule of lung 712176023 Active Not Available [facility] 3 10:02:13 Pain in left lower limb 934236582 Active Not Available [facility] 3 10:02:13 Hernia of abdominal cavity 95906974 Active Not Available [facility] 3 10:02:13 Low back pain 558228736 Active Not Available [facility] 3 10:02:13 Tobacco user 331045961 Active Not Available [facility] 3 10:02:13 Chronic pancreati tis 494384345 Active Not Available [facility] 3 10:02:13 Administr ation of influenza vaccine Active 2015 Not Available [facility] 3 10:02:13 Chronic hepatitis C 995034546 Active 2015 successfu lly treated . in 2017 ... Not Available [facility] 3 10:02:13 Depressiv e disorder 29512961 Active 2015 Not Available [facility] 3 10:02:13 Benign prostatic hyperplas ia 458298709 Active 2016 Not Available [facility] 3 10:02:13 Dental caries 68960366 Active 2016 Not Available [facility] 3 10:02:12 Gastroeso phageal reflux disease 034942971 Active 2016 Not Available [facility] 3 10:02:13 Splenomeg john 80870384 Active 2017 Not Available [facility] 3 10:02:13 Left flank pain 009633106 Active 2017 Not Available [facility] 3 10:02:13 Disorder of stomach 03186666 Active 2017 Not Available [facility] 3 10:02:13 Pain of left hip joint 26336995899 9100 Active 2017 Not Available [facility] 3 10:02:13 Steatotic liver disease 205638580 Active 2017 sees GI : they gave him a diet , [facility] [place] Not Available [facility] 3 10:02:13 Irritable bowel syndrome with diarrhea 881207867 Active 2018 Not Available [facility] 3 10:02:13 Anemia 746228509 Active 2018 Not Available [facility] 3 10:02:13 Screening for malignant neoplasm of prostate Active 2018 Not Available [facility] 3 10:02:13 Chronic prostatit is 16800731 Active 2018 Not Available [facility] 3 10:02:13 Myocardia l infarctio n 28581648 Active 2018 2 stents placed , balloon angioplas ty done.STEM I. bent stent unable to remove , a balloon placed 05/29/21 . Not Available [facility] 3 10:02:13 Upper respirato ry infection 73998112 Active 2019 Not Available [facility] 3 10:02:12 Schizophr enia 23803146 Active 2019 getting a new Psych doctor : Desiree Yeager [facility] in [facility] Not Available [facility] 3 10:02:13 Injury of left hip region 55529950899 601956 Active 2020 Not Available [facility] 3 10:02:13 Hyperlipi demia 50231978 Active 2020 Not Available [facility] 3 10:02:13 Injury of left shoulder 02339619802 376825 Active 2021 Not Available [facility] 3 10:02:13 History of hematuria 770702737 Active 2021 Not Available [facility] 3 10:02:12 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 401774686 Active 2021 Not Available [facility] 3 10:02:13 Degenerat ion of lumbar intervert ebral disc 21378237 Active 2021 Not Available [facility] 3 10:02:13 Full thickness rotator cuff tear 572508611 Active 2021 Not Available [facility] 3 10:02:13 Serum sodium level outside reference range 554529586 Active 2021 Not Available [facility] 3 10:02:13 Hyperglyc emia 50930105 Active 2021 Not Available [facility] 3 10:02:13 Coronary atheroscl erosis 230364165 Active 2021 Not Available [facility] 3 10:02:13 Tobacco dependenc e syndrome 00109674 Active 2022 Seymour Cunningham MD Attn: Accounting ,[address] [place], [address] , [place] - [facility] 3 15:32:53 Anxiety 65605287 Active 2022 Seymour Cunningham MD Attn: Accounting ,[address] [facility], [place], [address] , [place] - [facility] 3 17:16:36 Diverticu losis of colon 780927213 Active 2023 Seymour Cunningham MD Attn: Accounting ,[address] [facility], [place], [address] , [place] - [facility] 4 16:33:07 Postopera tive pain 816326332 Active 2023 Seymour Cunningham MD Attn: Accounting ,[address] [place], [address] , [facility] 4 11:24:23 Injury of finger 52119734 Active 2023 Seymour Cunningham MD Attn: Accounting ,[address] [place], [address] , [facility] 4 16:55:19 Medicatio n monitorin g Active 2023 Seymour Cunningham MD Attn: Accounting ,[address] [facility], [place], [address] , [facility] 4 16:57:18 Rib pain 190559227 Active 2024 Seymour Cunningham MD Attn: Accounting ,[address] [place], [address] , [facility] 5 17:52:12 Notes:Some problems listed i n Document: #[id number] could not be added to this patient's chart. Please review this document and add these problems to the patient's chart manually as needed. Problem Notes None recorded. Procedures Surgical History Date Name Laterality Status Provider Name and Address Organization Details Recorded Time 1 Heart Surgery completed Nettie Younger MA [place] [facility] 06/10/2021 12:05:02 6 Ercp duct stent placement completed Romulo Aaron DO [address] [place], [address], [facility] 06/07/2019 15:28:01 Unlisted px lungs & pleura completed Romulo Aaron DO [address] [place], [address], [facility] 06/07/2019 15:28:56 closed reduction of fracture of left femur and internal fixation using dynamic hip screw plate completed Romulo Aaron DO [address] [place], [address], [facility] 06/07/2019 15:31:14 Eye Surgery completed Tereza Hernandez MA [place] [facility] 07/31/2014 15:32:03 Imaging Results None recorded. Procedure Notes None recorded. Medical Equipment None Reported. Allergies No known drug allergies Medications Name Sig Start Date Stop Date Status Note LastModified by Organization Details LastModified Time Prescript ion - Prior Authoriza tion Request 10/12 completed Not Available Not Available Not Available cyclobenz aprine 10 mg tablet TAKE 1 TABLET BY MOUTH EVERY NIGHT AT BEDTIME 12/28 completed Not Available Not Available Not Available amoxicill in 500 mg capsule TAKE 2 CAPSULES BY MOUTH EVERY 12 HOURS FOR 10 DAYS 11/18 completed Not Available Not Available Not Available atorvasta tin 40 mg tablet TAKE 1 TABLET BY MOUTH EVERY DAY DIRECTED active Not Available Not Available No t Available atorvasta tin 80 mg tablet 03/30 completed Not Available Not Available Not Available carvedilo l 6.25 mg tablet TAKE 1 TABLET BY MOUTH TWICE DAILY 05/12 completed Not Available Not Available Not Available gabapenti n 600 mg tablet TAKE 2 TABLETS BY MOUTH THREE TIMES DAILY active Not Available Not Available No t Available atorvasta tin 20 mg tablet TAKE 1 TABLET BY MOUTH EVERY DAY 03/30 completed Not Available Not Available Not Available nicotine 14 mg/24 hr daily transderm al patch Apply 1 patch every day by transder mal route for 30 days. 05/19 completed Not Available Not Available Not Available clindamyc in HCl 300 mg capsule TAKE 1 CAPSULE BY MOUTH THREE TIMES DAILY 12/28 completed Not Available Not Available Not Available albuterol sulfate 2.5 mg/3 mL (0.083 %) solution for nebulizat ion Inhale 3 mL 3 times a day by nebuliza tion route as needed for 30 days. 11/08 completed Not Available Not Available Not Available atorvasta tin 10 mg tablet TAKE 1 TABLET BY MOUTH DAILY 02/07 completed Not Available Not Available Not Available lidocaine 5 % topical cream Apply 1 applicat ion 4 times a day by topical route as needed for 30 days. 05/19 completed Not Available Not Available Not Available ibuprofen 800 mg tablet TAKE 1 TABLET BY MOUTH THREE TIMES DAILY WITH FOOD NEEDED active Not Available Not Available No t Available alprazola m 1 mg tablet TAKE 1 TABLET BY MOUTH 30 MINUTES PRIOR TO MRI 09/20 completed Not Available Not Available Not Available tizanidin e 4 mg tablet TAKE 1 TABLET BY MOUTH EVERY DAY AT BEDTIME active Not Available Not Available No t Available citalopra m 10 mg tablet 05/19 completed Not Available Not Available Not Available ranitidin e 300 mg tablet Take 1 tablet twice a day by oral route for 30 days. 08/31 completed contamin ants Not Available Not Available Not Available hydrocodo ne 5 mg-acetam inophen 325 mg tablet TAKE 1 TABLET BY MOUTH TWICE DAILY NEEDED FOR PAIN 04/06 completed Meth in UDS Not Available Not Available Not Available famotidin e 40 mg tablet 1 BID 11/08 completed Not Available Not Available Not Available prednison e 20 mg tablet TAKE 2 TABLETS TWICE DAILY X 2 DAYS 1 TABLET TWICE DAILY X 5 DAYS 1/2 TABLET TWICE DAILY X 2 DAYS 1/2 TABLET DAILY X 1 DAY. TAKE 2ND DOSE AT NOON. 10/28 completed Not Available Not Available Not Available isosorbid e mononitra te ER 30 mg tablet,ex tended release 24 hr TAKE 1 TABLET BY MOUTH EVERY DAY IN THE MORNING 02/07 completed Not Available Not Available Not Available clonazepa m 0.5 mg tablet TAKE 1/2 TABLET BY MOUTH TWICE DAILY active Not Available Not Available No t Available olanzapin e 5 mg tablet TAKE 1 TABLET BY MOUTH EVERY DAY AT BEDTIME 02/07 completed Not Available Not Available Not Available clonazepa m 1 mg tablet 12/12 completed Not Available Not Available Not Available olanzapin e 10 mg tablet TAKE 1 TABLET BY MOUTH EVERY DAY AT BEDTIME active Not Available Not Available No t Available amlodipin e 2.5 mg tablet TAKE 1 TABLET BY MOUTH EVERY DAY 12/28 completed Not Available Not Available Not Available acetamino phen 300 mg-codein e 30 mg tablet 11/08 completed Not Available Not Available Not Available clopidogr el 75 mg tablet TAKE 1 TABLET BY MOUTH EVERY DAY active Not Available Not Available No t Available prochlorp erazine maleate 10 mg tablet Take 1 tablet twice a day by oral route as needed for 5 days. 12/12 completed Not Available Not Available Not Available ciproflox acin 500 mg tablet 10/12 completed Not Available Not Available Not Available sulfameth oxazole 800 mg-trimet hoprim 160 mg tablet Take 1 tablet every 12 hours by oral route for 10 days. 12/12 completed Not Available Not Available Not Available peg-elect rolyte solution 420 gram oral solution FOLLOW PACKAGE DIRECTIO NS 11/28 completed Not Available Not Available Not Available omeprazol e 40 mg capsule,d elayed release 05/19 completed Not Available Not Available Not Available aspirin 81 mg tablet,de layed release Take 1 tablet every day by oral route for 30 days. 08/16 completed Not Available Not Available Not Available tramadol 50 mg tablet Take 1 tablet(s ) twice a day by oral route as needed for 30 days. 05/19 completed Not Available Not Available Not Available carvedilo l 3.125 mg tablet TAKE 1 TABLET BY MOUTH EVERY 12 HOURS 01/06 completed Not Available Not Available Not Available Depo-Medr ol 80 mg/mL suspensio n for injection Take 1 mL by injectio n route. 01/13 completed Not Available Not Available Not Available isosorbid e mononitra te ER 60 mg tablet,ex tended release 24 hr TAKE 1 TABLET BY MOUTH DAILY active Not Available Not Available No t Available alprazola m 0.5 mg tablet Take one tablet one hour before procedur e 02/07 completed Not Available Not Available Not Available citalopra m 20 mg tablet TAKE 1 TABLET BY MOUTH EVERY DAY IN THE MORNING active Not Available Not Available No t Available famotidin e 20 mg tablet TAKE 2 TABLETS BY MOUTH DAILY active Not Available Not Available No t Available aspirin 325 mg tablet,de layed release 05/19 completed Not Available Not Available Not Available gabapenti n 800 mg tablet TAKE 1 TABLET BY MOUTH THREE TIMES DAILY 03/30 completed Not Available Not Available Not Available nicotine (polacril ex) 4 mg gum CHEW ONE PIECE OF GUM EVERY 3 HOURS DIRECTED 10/28 completed Not Available Not Available Not Available dicyclomi ne 20 mg tablet 11/08 completed Not Available Not Available Not Available amitripty line 10 mg tablet Take 2 tablets every day by oral route at bedtime for 30 days. 08/16 completed Not Available Not Available Not Available baclofen 10 mg tablet active Not Available Not Available Not Available cephalexi n 500 mg capsule 03/30 completed Not Available Not Available Not Available pantopraz ole 40 mg tablet,de layed release TAKE 1 TABLET BY MOUTH EVERY DAY BEFORE MEALS 11/08 completed Not Available Not Available Not Available mirtazapi ne 30 mg tablet TAKE 1 TABLET BY MOUTH EVERY DAY 08/16 completed Not Available Not Available Not Available ranitidin e 150 mg tablet 12/12 completed Not Available Not Available Not Available lidocaine 5 % topical patch APPLY 1 PATCH TOPICALL Y TO THE SKIN EVERY DAY active Not Available Not Available No t Available promethaz ine 25 mg tablet TAKE 2 TABLETS BY MOUTH EVERY 6 HOURS 02/07 completed Not Available Not Available Not Available Advair Diskus 250 mcg-50 mcg/dose powder for inhalatio n Inhale 1 puff twice a day by inhalati on route for 30 days. 12/12 completed Not Available Not Available Not Available nicotine 21 mg/24 hr daily transderm al patch Apply 1 patch every day by transder mal route for 30 days. 11/08 completed Not Available Not Available Not Available nitroglyc thom 0.4 mg sublingua l tablet DISSOLVE 1 TABLET UNDER THE TONGUE EVERY 5 MINUTES NEEDED FOR CHEST PAIN. MAX 3 DOSES IN 15 MINUTES. IF STILL IN PAIN CALL 911 active Not Available Not Available No t Available gabapenti n 300 mg capsule TAKE 2 CAPSULES BY MOUTH THREE TIMES DAILY DIRECTED 02/07 completed Not Available Not Available Not Available omeprazol e 20 mg capsule,d elayed release 11/08 completed Not Available Not Available Not Available mirtazapi ne 45 mg tablet Take 1 tablet every day by oral route at bedtime for 30 days. 08/16 completed Not Available Not Available Not Available aspirin 81 mg chewable tablet CHEW AND SWALLOW ONE TABLET DAILY 08/22 completed Not Available Not Available Not Available diclofena c sodium 75 mg tablet,de layed release 08/16 completed Not Available Not Available Not Available lisinopri l 5 mg tablet TAKE 1 TABLET BY MOUTH DAILY 05/22 completed Cardiolo gist stopped lisinopr il when put on carvedil ol Not Available Not Available Not Available zolpidem 5 mg tablet TAKE 1 TABLET BY MOUTH EVERY DAY IN THE EVENING 01/13 completed Abnormal UDS Not Available Not Available Not Available Valium 10 mg tablet 1 tab po 30 minutes before CAT scan of abdomen . Mahy repeat times one prn 11/28 completed Not Available Not Available Not Available zolpidem 10 mg tablet 05/19 completed Not Available Not Available Not Available methylpre dnisolone 4 mg tablets in a dose pack FOLLOW PACKAGE DIRECTIO NS 10/28 completed Not Available Not Available Not Available albuterol sulfate HFA 90 mcg/actua tion aerosol inhaler INHALE 2 PUFFS BY MOUTH THREE TIMES DAILY NEEDED 10/28 completed Not Available Not Available Not Available SSD 1 % topical cream APPLY EXTERNAL LY TO THE AFFECTED AREA TWICE DAILY UNTIL HEALED 12/28 completed Not Available Not Available Not Available hydrocort isone 2.5 % topical ointment APPLY THIN LAYER TOPICALL Y TO THE AFFECTED AREA TWICE DAILY 02/07 completed Not Available Not Available Not Available lisinopri l 2.5 mg tablet 05/22 completed Cardiolo gist stopped lisinopr il when put on carvedil ol Not Available Not Available Not Available dicyclomi ne 10 mg capsule TAKE ONE CAPSULE BY MOUTH FOUR TIMES DAILY NEEDED FOR ABDOMINA L PAIN 12/28 completed Not Available Not Available Not Available diazepam 5 mg tablet TAKE 1 TABLET BY MOUTH THREE TIMES DAILY 10/31 completed Not Available Not Available Not Available amoxicill in 875 mg-potass ium clavulana te 125 mg tablet TAKE 1 TABLET BY MOUTH TWICE DAILY FOR 7 DAYS 12/28 completed Not Available Not Available Not Available nicotine 7 mg/24 hr daily transderm al patch Apply 1 patch every day by transder mal route for 30 days. 05/19 completed Not Available Not Available Not Available oxycodone 5 mg tablet 03/30 completed Not Available Not Available Not Available escitalop lee 10 mg tablet 11/28 completed Not Available Not Available Not Available escitalop lee 20 mg tablet TAKE 1 TABLET BY MOUTH EVERY DAY 02/07 completed Not Available Not Available Not Available nicotine (polacril ex) 4 mg buccal lozenge Take 1 tablet every 2 hours by oral route as needed. 04/05 completed Not Available Not Available Not Available bupropion HCl XL 150 mg 24 hr tablet, extended release TAKE 1 TABLET BY MOUTH EVERY MORNING 11/08 completed Not Available Not Available Not Available lactulose 10 gram/15 mL oral solution 08/16 completed Not Available Not Available Not Available omega-3 acid ethyl esters 1 gram capsule TAKE 2 CAPSULES BY MOUTH TWICE DAILY AFTER MEALS 02/07 completed Not Available Not Available Not Available Symbicort 160 mcg-4.5 mcg/actua tion HFA aerosol inhaler INHALE 2 PUFFS BY MOUTH TWICE DAILY active Not Available Not Available No t Available omeprazol e 20 mg tablet,de layed release Take 1 tablet every day by oral route before meals for 30 days. 08/16 completed Not Available Not Available Not Available diclofena c 1 % topical gel Apply 2 g 4 times a day by topical route for 30 days. 11/08 completed Not Available Not Available Not Available B12 11/28 completed Not Available Not Available Not Available Chantix Starting Month Box 0.5 mg (11)-1 mg (42) tablets in dose pack TAKE DIRECTED 11/08 completed Not Available Not Available Not Available Creon 36,000 unit-114, 000 unit-180, 000 unit capsule,d elayed release Take 1 capsule 4 times a day by oral route with meals. 12/28 completed Not Available Not Available Not Available Pennsaid 20 mg/gram/a ctuation (2 %) topical soln in metered-d ose pump APPLY 2 PUMPS (40 MG) TO THE AFFECTED KNEE(S) BY TOPICAL ROUTE 2 TIMES PER DAY 01/06 completed Not Available Not Available Not Available Zepatier 50 mg-100 mg tablet 08/16 completed Not Available Not Available Not Available nicotine (polacril ex) 4 mg buccal mini lozenge TAKE 1 TABLET BY MOUTH EVERY 2 HOURS NEEDED 04/05 completed Not Available Not Available Not Available Afluria Quad (PF) 60 mcg (15 mcg x 4)/0.5 mL IM syringe 11/08 completed Not Available Not Available Not Available Vitals Date Recorded Body height Body mass index (BMI) Body weight Body temperature Oxygen saturation Heart rate Respiratory rate Systolic And Diastolic Provider Name and Address Organization Details Last Updated DateTime 5 190.5 cm 21.2 kg/m2 03072.3 4 g 97 [degF] 97 % 75 /min 18 /min 120/74 mm[Hg] Nettie Younger MA [place] - [facility] 5 13:52:01 Social History Question Answer Notes LastModified by Organizat ion Details LastModified Time Tobacco Smoking Status Current Every Day Smoker Tereza Hernandez MA null, [place] - [facility] 07/31/2014 15:32:03 Do You Have An Advance Directive? No Information not available 07/31/2014 Are You Blind Or Do You Have Difficulty Seeing? No Information not available 07/31/2014 What Is Your Level Of Caffeine Consumption? Heavy Information not available 07/31/2014 Are You A Caregiver? No Information not available 07/31/2014 How Much Tobacco Do You Chew? None Information not available 07/31/2014 Are You Deaf Or Do You Have Serious Difficulty Hearing? No Information not available 07/31/2014 What Type Of Diet Are You Following? REGULAR Information not available 07/31/2014 Do You Have A Directive To Physicians? No Information not available 07/31/2014 Which Illicit Or Recreational Drugs Have You Used? N/a Information not available 07/31/2014 Education 8 Information no t available 07/31/2014 Are There Any Guns Present In Your Home? No Information not available 07/31/2014 Hard Of Hearing Or Deaf In One Or Both Ears? No Information not available 07/31/2014 Legally Blind In One Or Both Eyes? No Information not available 07/31/2014 Marital Status Informatio n not available 07/31/2014 Do You Have A Medical Power Of Core Drill Operator? No Information not available 07/31/2014 What Was The Date Of Your Most Recent Tobacco Screening? 04/05/2025 Information not available 04/05/2025 How Many Children Do You Have? 1 Information not available 11/18/2020 Do You Have An Out Of Hospital DNR? No Information not available 07/31/2014 Performs Monthly Self-breast Exam? No Information not available 07/31/2014 What Is Your Relationship Status? Information not available 11/18/2020 Do You Use Your Seat Belt Or Car Seat Routinely? Yes Information not available 11/18/2020 Seat Belts Used Routinely Yes Information not available 07/31/2014 Are You Sexually Active? No Information not available 11/18/2020 Smoke Alarm In Home Yes Information not available 07/31/2014 Do You Have Smoke And Carbon Monoxide Detectors In Your Home? Yes Information not available 11/18/2020 At What Age Did You Start Smoking Tobacco? 9 Information not available 07/31/2014 Are You Passively Exposed To Smoke? Yes Information not available 11/18/2020 How Much Tobacco Do You Smoke? 2 PPD Information not available 04/05/2025 General Stress Level High Information not available 07/31/2014 Do You Use Sunscreen Routinely? No Information not available 07/31/2014 Has Tobacco Cessation Counseling Been Provided? Yes Information not available 10/28/2022 On What Date Was Tobacco Cessation Counseling Provided? 12/28/2024 [email or web address] Information not available 12/28/2024 Do You Have Difficulty Walking Or Climbing Stairs? Yes Varies From Spinal Injections Information not available 07/31/2014 Sex: Male Functional Status Question Answer Note LastModified by Organization Details LastModified Time Do you use any illicit or recreational drugs? No Information not available 11/18/2020 Do you or have you ever used any other forms of tobacco or nicotine? No Information not available 10/28/2022 What is your level of alcohol consumption? Occasional In his teens drank prior 1 case per week. Now does not. [email or web address] Information not available 06/07/2019 Do you or have you ever used smokeless tobacco? Never used smokeless tobacco Information not available 12/19/2019 Do you have transportation difficulties? Yes Information not available 07/31/2014 Do you have difficulty doing errands alone? No Information not available 07/31/2014 Are you able to care for yourself independently? 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 No Information not available 07/31/2014 Do you or have you ever used e-cigarettes or vape? Never used electronic cigarettes Information not available 12/19/2019 What is your exercise level? Occasional Information not available 07/31/2014 Mental Status Question Answer Note LastModified by Organizat ion Details LastModified Time Do you feel stressed (tense, restless, nervous, or anxious, or unable to sleep at night)? [id number] Information not available 11/18/2020 Do you have difficulty concentrating, remembering or making decisions? Yes Information no t available 07/31/2014 Family History Relationship Description Onset Age of this Age Resolved Age Notes LastModified by Organization Details LastModified Time Mother Malignant neoplasm of breast Not available 2014 11:56:30 Sister Depressive disorder Not available 2014 11:56:30 Brother Depressive disorder Not available 2014 11:56:30 Notes:Vaping began spring. Prior 2-3 PPD for 40 yrs Medical History Condition Response Anxiety Disorder Y Muscle, Joint, or Bone Problems Y Acid Reflux (GERD) Y Kidney or Bladder Problems Y Depression Y GI Problems Y Hepatitis Y Heart Attack (AR) Y Immunizations Vaccine Type Date Status Note Provider Nam e and Address Organization Details Recorded Time SARS-COV-2 (COVID-19) vaccine, UNSPECIFIED 1 completed Not Available [facility] 08/19/2022 10:02:14 SARS-COV-2 (COVID-19) vaccine, UNSPECIFIED 1 completed Not Available [facility] 08/19/2022 10:02:14 COVID-19, mRNA, LNP-S, PF, 100 mcg/0.5mL dose or 50 mcg/0.25mL dose 1 completed Not Available [facility] 08/19/2022 10:02:14 SARS-COV-2 (COVID-19) vaccine, UNSPECIFIED 2 completed Not Available [facility] 08/19/2022 10:02:14 Influenza, split virus, quadrivalent, preservative 6 completed Not Available [facility] 08/12/2019 02:44:54 Influenza, split virus, quadrivalent, PF 8 completed Not Available [facility] 04/05/2025 13:39:39 Influenza, MDCK, quadrivalent, PF 2 completed Not Available [facility] 04/05/2025 13:39:39 pneumococcal polysaccharide PPV23 2 completed Not Available [facility] 04/05/2025 13:39:39 COVID-19, mRNA, LNP-S, PF, marie-sucrose, 30 mcg/0.3 mL 4 completed Not Available [facility] 04/05/2025 13:39:39 Influenza, MDCK, quadrivalent, PF 4 completed Not Available [facility] 04/05/2025 13:39:39 RSV, recombinant, protein subunit RSVpreF, adjuvant reconstituted, 0.5 mL, PF 4 completed Not Available [facility] 04/05/2025 13:39:39 Influenza, split virus, quadrivalent, preservative 7 completed Not Available [facility] 08/12/2019 02:50:28 Influenza, split virus, quadrivalent, preservative 9 completed Not Available [facility] 08/12/2019 02:41:29 Influenza, split virus, quadrivalent, preservative 0 completed Nettie Younger MA null, [place] - [facility] 05/22/2020 12:45:17 Influenza, split virus, quadrivalent, preservative 1 completed Rachelle Tiwari [place], [place] [facility] 05/16/2021 12:37:11 Tdap 2 completed Chevy Siu [place] null, [place] [facility] 11/28/2021 13:38:34 Influenza, split virus, quadrivalent, preservative 5 completed Not Available [facility] 08/12/2019 02:32:11 Influenza, split virus, trivalent, preservative 5 completed Not Available [facility] 08/12/2019 02:45:32 Past Encounters Encounter ID Performer Location Encounter Start Date Encounter Closed Date Diagnosis/Indication Diagnosis SNOMED-CT Code Diagnosis ICD10 Code Diagnosis IMO Codes Diagnosis Note [id number] MD Tobin Santillan (Adult Med) [address] [place] [address] 04/05/2025 13:37:38 04/10/2025 03:47:35 Health Concerns Section Related Observation LastModified by Organization Detai ls LastModified Time None Recorded Concern Status LastModified by Organization Details LastModified Time None Recorded Payers Encounter Date Sequence Insurance Name Policy Number Policy Clayton Covered Member ID Clayton Member ID Guarantor Name 04/05/2025 1 [facility] ON OR AFTER 01/23/21 (MEDICAID REPLACEMENT - HMO) Boris Colin [id number] Boris Colin Notes Date Note Type Note Provider Name and Address Organization Details Recorded Time 04/05/2025 text/html ROS as noted in the HPI I came in to see Mr Colin, I introduced myself and I proceeded with the history and physical. He was last seen by Dr Cunninhgam who has since retired on 12/28/2024. He made a request about his Clonazepam, I explained to him that I will not be able to refill this medication. He proceeded to say that he has been shaking like a leaf and he has been on this for 15 years and all we cared about was his insurance and that I was not willing to help him. I told him to go to the ER if he is in distress. A review of his records reveal that his UDS on 01/02/2025 was positive for Methamphetamines and Dr. Cunningham stopped his Clonazepam and Zolpidem. It was clear that this visit was not moving in the right direction, I stepped out and came in with a gear generator set up operator, Nettie Rich MA who was with me for the rest of the short visit. Mr Colin complained that he was only seen by Dr Cunningham once and YVONNE Ayon who no longer works here is his doctor. He made it clear that he was not interested in proceeding with this visit and asked for a copy of his records. Mckenzie Torres MD Attn: Accounting,[address] [place], [address], [place] [facility] 04/05/2025 14:25:06
--- OUTSIDE RECORDS SUMMARY | 2025-06-20 10:54 | XMS_ITS | Data Portability ---
Author Organization [facility] Address [address] [place] [address] Assessment Encounter Date Assessment Date Assessment LastModified [...] stepped out and came in with a machine maintenance, Nettie Rich MA who was with me for the rest of the short visit. Mr Colin complained that he was only seen by Dr Cuninngham once and YVONNE Ayon who no longer works here is his doctor. He made it clear that he was not interested in proceeding with this visit and asked for a copy of his records. [email or web address] Not available 04/05/2025 14:25:00 Plan of Treatment Reminders Order Date Submit Date Provider Last Modified By Organization Details Last Modified Time Details Appointments None recorded . Lab drug screen, 14 drugs (detecti med), urine 2023 024 [facility], [address] [facility], [address], [place], [address], 4 15:11:38 lipid panel, serum 2022 023 [facility], [address], [address], [place], [address], 3 08:42:34 CBC 2022 023 [facility], [address], [address], [place], [address], 3 15:40:40 CMP, serum or plasma 2022 023 [facility], [address], [address], [place], [address], 3 08:42:34 HbA1c (hemoglo bin A1c), blood 2022 023 [facility], [address] [facility] [address], [address], [place], [address], 3 15:40:40 PSA, total, serum or plasma 2022 023 [facility], [address] [facility] [address], [address], [place], [address], 3 15:40:41 Referral None recorded . Procedures None recorded . Surgeries None recorded . Imaging XR, ribs, unilater al 2024 025 [facility] ([facility]), [address] [place], [address], 5 16:06:38 XR, lumbar spine 2023 024 [facility] (Radiology), [address] [place], [address], 5 17:30:13 LDCT, chest, for lung cancer screenin g [address] ([facility] Scheduling), [address], [place], [address], 3 15:18:39 Medication Orders nicotine (polacri brandon) 4 mg buccal lozenge 2024 025 [facility]03715, [address] , [place], [place], [id number], 5 13:48:30 zolpidem 5 mg tablet 2024 025 [place] [facility], [address], [place], [place], [id number], 5 06:23:27 gabapent in 600 mg tablet 2024 025 [place] [facility]32477, [address], [place], [place], [id number], 5 17:50:08 tizanidi ne 4 mg tablet 2024 025 [facility], [address], [place], [place], [id number], 5 17:50:08 lidocain e 5 % topical patch 2024 025 [place] [facility] #41206, [address], [place], [place], [id number], 5 17:50:08 famotidi ne 20 mg tablet 2024 025 [facility]29, [address] , [place], [place], [id number], 5 17:50:09 Symbicor t 160 mcg-4.5 mcg/actu ation HFA aerosol inhaler 2024 025 [facility] #57175, [address], [place], [place], [id number], 5 17:55:13 olanzapi ne 10 mg tablet 2024 025 [facility] #72726, [address], [place], [place], [id number], 5 17:50:07 citalopr am 20 mg tablet 2024 025 [facility] #38211, [address], [place], [place], [id number], 5 17:50:08 zolpidem 5 mg tablet [address] [facility], [address], [place], [place], [id number], 5 06:23:18 cycloben zaprine 10 mg tablet [address] [facility] #14876, [address], [place], [place], [id number], 5 17:46:04 famotidi ne 20 mg tablet 2023 024 [facility] #23546, [address], [place], [place], [id number], 4 16:42:54 citalopr am 20 mg tablet 2023 024 [facility] #94518, [address], [place], [place], [id number], 4 16:43:08 Symbicor t 160 mcg-4.5 mcg/actu ation HFA aerosol inhaler 2022 023 [facility]48390, [address], [place], [place], [id number], 4 15:42:44 gabapent in 300 mg capsule 2022 023 [facility] #84053, [address], [place], [place], [id number], 15:43:35 amoxicil gerard 875 mg-potas sium clavulan ate 125 mg tablet 2022 023 [facility] #45845, [address], [place], [place], [id number], 17:06:23 Patient TargetsNo targets recorded. Patient Instructions Encounter Date Encounter Id Patient Instructions Last Modified By Organization Details Last Modified Time 10/28/2022 [id number] deciding about u sing medicines to quit smoking Not available 10/28/2022 15:40:24 Quitting Tobacco : Care Instructions [email or web address] Not available 10/28/2022 15:40:22 back care and preventing injuries: care instructions [email or web address] Not available 10/28/2022 15:40:23 gastroesophageal reflux disease (GERD): care instructions [email or web address] Not available 10/28/2022 15:40:23 high cholesterol : care instructions [email or web address] Not available 10/28/2022 15:40:23 chronic obstruct katherine pulmonary disease (COPD): care instructions [email or web address] Not available 10/28/2022 15:40:23 learning about c opd and how to prevent lung infections [email or web address] Not available 10/28/2022 15:40:23 learning about h igh blood sugar [email or web address] Not available 10/28/2022 15:40:22 abscessed tooth: care instructions [email or web address] Not available 10/28/2022 15:40:23 02/08/2024 [id number] insomnia: care instructions [email or web address] Not available 02/08/2024 16:42:41 back care and preventing injuries: care instructions [email or web address] Not available 02/08/2024 16:42:41 learning about m ood disorders Not available 02/08/2024 16:42:41 12/28/2024 [id number] deciding about u sing medicines to quit smoking Not available 12/28/2024 17:49:58 Quitting Tobacco : Care Instructions [email or web address] Not available 12/28/2024 17:49:59 chronic obstruct katherine pulmonary disease (COPD): care instructions [email or web address] Not available 12/28/2024 17:55:07 learning about c opd and how to prevent lung infections Not available 12/28/2024 17:55:07 Reason for Referral None Reported. Results Created Date Observation Date Name Description Value Unit Range Abnormal Flag Note LastModifiedBy Organization Detail LastModifiedTime 10/16/1910/22/2022 COMPL IANCE DRUG ARMANDO SIS, UR summary report (summary) FINAL ===== ===== ===== ===== ===== ===== ===== ===== ===== ===== ===== ===== ===== === TOXAS SURE COMP DRUG ARMANDO SIS,U R ===== ===== ===== ===== ===== ===== ===== ===== ===== ===== ===== ===== ===== === Test Resul t Flag Units Drug Prese nt Carbo xy-TH C 17 ng/mg creat Carbo xy-TH C is a metab olite of tetra hydro canna binol (THC) . Sourc e of THC is most commo nly herba l marij uana or marij uana- based produ cts, but THC is also prese nt in a sched uled presc ripti on medic ation . Trace amoun ts of THC can be prese nt in hemp and canna bidio l (CBD) produ cts. This test is not inten ded to disti nguis h betwe en delta -9-te trahy droca nnabi nol, the predo minan t form of THC in most herba l or marij uana- based produ cts, and delta -8-te trahy droca nnabi nol. [place] codon e 868 ng/mg creat [place] morph one 68 ng/mg creat Dihyd rocod eine 169 ng/mg creat Norhy droco done 453 ng/mg creat Sourc es of hydro codon e inclu de sched uled presc ripti on medic ation s. [place] morph one, dihyd rocod eine and norhy droco done are expec mayra metab olite s of hydro codon e. [place] morph one and dihyd rocod eine are also avail able as sched uled presc ripti on medic ation s. Cyclo benza eliza PRESE NT Desme thylc yclob enzap rine PRESE NT Desme thylc yclob enzap rine is an expec mayra metab olite of cyclo benza eliza . Cital opram PRESE NT Desme thylc rebecca pram PRESE NT Desme thylc rebecca pram is an expec mayra metab olite of cital opram or the enant iomer ic form, escit alopr am. Olanz apine PRESE NT Aceta minop hen PRESE NT Ibupr ofen PRESE NT Prome thazi ne PRESE NT ===== ===== ===== ===== ===== ===== ===== ===== ===== ===== ===== ===== ===== === Test Resul t Flag Units Ref Range Creat inine 94 mg/dL >=20 ===== ===== ===== ===== ===== ===== ===== ===== ===== ===== ===== ===== ===== === Decla red Medic ation s: Medic ation list was not provi ded. ===== ===== ===== ===== ===== ===== ===== ===== ===== ===== ===== ===== ===== === For clini luis a consu ltati on, pleas e call . ===== ===== ===== ===== ===== ===== ===== ===== ===== ===== ===== ===== ===== === Not Available [facility] ([facility]) [address], [place], [address], 10/22/2022 15:10:34 10/16/1910/22/2022 COMPL IANCE DRUG ARMANDO SIS, UR pdf . Not Available [facility] ([facility]) [address], [place], [address], 10/22/2022 15:10:34 02/26/20 24 02/26/2024 Urina lysis panel - Urine by Autom ated color UA Yellow text: straw, yellow Not Available Not Available 02/15/2025 12:06:28 02/26/2002/26/2024 Urina lysis panel - Urine by Autom ated clarity UA Clear text: clear Not Available Not Available 02/15/2025 12:06:28 02/26/20 24 02/26/2024 Urina lysis panel - Urine by Autom ated specific gravity UA 1.01 low: 1.005h igh: 1.03 Not Available Not Available 02/15/2025 12:06:28 02/26/2002/26/2024 Urina lysis panel - Urine by Autom ated pH UA 6 pH low: 5pHhig h: 8pH Not Available Not Available 02/15/2025 12:06:28 02/26/2002/26/2024 Urina lysis panel - Urine by Autom ated protein UA Negati ve text: negati ve Not Available Not Available 02/15/2025 12:06:28 02/26/20 24 02/26/2024 Urina lysis panel - Urine by Autom ated glucose UA Negati ve text: negati ve Not Available Not Available 02/15/2025 12:06:28 02/26/2002/26/2024 Urina lysis panel - Urine by Autom ated ketone UA Negati ve text: negati ve Not Available Not Available 02/15/2025 12:06:28 02/26/2002/26/2024 Urina lysis panel - Urine by Autom ated bilirubin UA Negati ve text: negati ve Not Available Not Available 02/15/2025 12:06:28 02/26/2002/26/2024 Urina lysis panel - Urine by Autom ated blood UA Negati ve text: negati ve Not Available Not Available 02/15/2025 12:06:28 02/26/2002/26/2024 Urina lysis panel - Urine by Autom ated nitrite UA Negati ve text: negati ve Not Available Not Available 02/15/2025 12:06:28 02/26/2002/26/2024 Urina lysis panel - Urine by Autom ated leukocyte esterase Negati ve text: negati ve Not Available Not Available 02/15/2025 12:06:28 02/26/2002/26/2024 Urina lysis panel - Urine by Autom ated urobilinogen UA Negati ve text: negati ve mg/dL Not Available Not Available 02/15/2025 12:06:28 02/26/2002/26/2024 Urina lysis panel - Urine by Autom ated RBC UA 3-5 text: none seen, 0-2, 3-5 /hpf Not Available Not Available 02/15/2025 12:06:28 02/26/2002/26/2024 Urina lysis panel - Urine by Autom ated WBC UA 0-5 text: none seen, 0-5 /hpf Not Available Not Available 02/15/2025 12:06:28 02/26/2002/26/2024 Urina lysis panel - Urine by Autom ated squamous epithelial cells UA None Seen text: none seen, 0-2, 3-5 /hpf Not Available Not Available 02/15/2025 12:06:28 02/26/20 24 02/26/2024 Urina lysis panel - Urine by Autom ated mucus UA 1+ text: /lpf Not Available Not Available 02/15/2025 12:06:28 02/26/20 24 02/26/2024 Urina lysis panel - Urine by Autom ated hyaline casts UA 0-2 text: none seen, 0-2 /lpf Not Available Not Available 02/15/2025 12:06:28 02/26/20 24 02/26/2024 Urina lysis panel - Urine by Autom ated Unknown Analyte Not Available Not Available 01/24 12:06:28 02/26/20 24 03/28/2024 Fungu s ident ified in [place] te by Cultu re microorganis m identified in specimen by culture No fungus isolat ed Not Available Not Available 12:06:28 02/26/20 24 03/28/2024 Fungu s ident ified in [place] te by Cultu re fungus identified in specimen by fungus stain No yeast or hyphae seen Not Available Not Available 12:06:28 02/26/20 24 03/28/2024 Fungu s ident ified in [place] te by Cultu re interpretati on and review of laboratory results Normal Not Available Not Available 01/24 12:06:28 02/26/20 24 03/02/2024 Bacte alon ident ified in [place] te by Anaer obe cultu re microorganis m identified in specimen by culture No anaero bic organi sms isolat ed Not Available Not Available 12:06:28 02/26/20 24 03/02/2024 Bacte alon ident ified in [place] te by Anaer obe cultu re interpretati on and review of laboratory results Normal Not Available Not Available 01/24 12:06:28 02/26/20 24 02/29/2024 Bacte alon ident ified in Wound by Cultu re microorganis m identified in specimen by culture Modera te Staphy lococc us aureus abnormal Staph yloco ccus aureu s methi cilli n-thompson cepti ble (MSSA ) detec mayra by penic illin katharine ng prote in immun oassa y. Not Available Not Available 02/15/2025 12:06:28 02/26/20 24 02/29/2024 Bacte alon ident ified in Wound by Cultu re microorganis m identified in specimen by culture Rare normal skin steffany Not Available Not Available 12:06:28 02/26/20 24 02/29/2024 Bacte alon ident ified in Wound by Cultu re microscopic observation [identifier] in specimen by gram stain Light Polymo rphonu clear cells Not Available Not Available 12:06:28 02/26/20 24 02/29/2024 Bacte alon ident ified in Wound by Cultu re microscopic observation [identifier] in specimen by gram stain Heavy Red blood cells Not Available Not Available 12:06:28 02/26/20 24 02/29/2024 Bacte alon ident ified in Wound by Cultu re microscopic observation [identifier] in specimen by gram stain No organi sms seen Not Available Not Available 12:06:28 02/26/20 24 02/29/2024 Bacte alon ident ified in Wound by Cultu re interpretati on and review of laboratory results Abnorm al Not Available Not Available 12:06:28 02/26/20 24 02/26/2024 Lacta te [Mole s/vol ume] in Blood lactate [moles/volum e] in serum or plasma 1.1 mmol/ L high: 2mmol/ L Not Available Not Available 02/15/2025 12:06:27 02/26/20 24 02/26/2024 Lacta te [Mole s/vol ume] in Blood interpretati on and review of laboratory results Normal Not Available Not Available 01/24 12:06:27 02/26/20 24 03/02/2024 Bacte alon ident ified in Blood by Cultu re microorganis m identified in specimen by culture No growth day 5 Not Available Not Available 12:06:27 02/26/20 24 03/02/2024 Bacte alon ident ified in Blood by Cultu re interpretati on and review of laboratory results Normal Not Available Not Available 01/24 12:06:27 02/26/20 24 02/26/2024 C react katherine prote in [Mass /volu me] in Serum or Plasm a C reactive protein [mass/volume ] in serum or plasma 1.1 mg/dL high: 0.5mg/ dL high Not Available Not Available 02/15/2025 12:06:27 02/26/20 24 02/26/2024 C react katherine prote in [Mass /volu me] in Serum or Plasm a interpretati on and review of laboratory results Abnorm al Not Available Not Available 12:06:27 02/26/20 24 02/26/2024 Eryth rocyt e sedim entat ion rate [[place]] in Red Blood Cells by Westrosy carsonren metho d erythrocyte sedimentatio n rate [velocity] in red blood cells by westtaylorren method 39 text: 0 - 20 mm/HR high Not Available Not Available 02/15/2025 12:06:27 02/26/20 24 02/26/2024 Eryth rocyt e sedim entat ion rate [[place]] in Red Blood Cells by Daphne hodge metho d interpretati on and review of laboratory results Abnorm al Not Available Not Available 12:06:27 02/26/20 24 02/26/2024 CBC W Auto Diffe renti al panel - Blood leukocytes [#/volume] in blood by automated count 13 text: 4.0 - 10.7 x10e9/ L high Not Available Not Available 02/15/2025 12:06:27 02/26/20 24 02/26/2024 CBC W Auto Diffe renti al panel - Blood erythrocytes [#/volume] in blood by automated count 4.36 text: 4.30 - 5.80 x10e12 /L Not Available Not Available 02/15/2025 12:06:27 02/26/20 24 02/26/2024 CBC W Auto Diffe renti al panel - Blood hemoglobin [mass/volume ] in blood 13.9 g/dL low: 13.3g/ dLhigh : 17.5g/ dL Not Available Not Available 02/15/2025 12:06:27 02/26/20 24 02/26/2024 CBC W Auto Diffe renti al panel - Blood hematocrit [volume fraction] of blood by automated count 40.9 % low: 38.7%h igh: 51.1% Not Available Not Available 02/15/2025 12:06:27 02/26/20 24 02/26/2024 CBC W Auto Diffe renti al panel - Blood MCV [entitic mean volume] in red blood cells by automated count 93.8 fL low: 80fLhi gh: 98fL Not Available Not Available 02/15/2025 12:06:27 02/26/20 24 02/26/2024 CBC W Auto Diffe renti al panel - Blood MCH [entitic mass] by automated count 31.9 pg low: 26.7pg high: 33.6pg Not Available Not Available 02/15/2025 12:06:27 02/26/20 24 02/26/2024 CBC W Auto Diffe renti al panel - Blood MCHC [entitic mass/volume] in red blood cells by automated count 34 g/dL low: 31.7g/ dLhigh : 36.3g/ dL Not Available Not Available 02/15/2025 12:06:27 02/26/20 24 02/26/2024 CBC W Auto Diffe renti al panel - Blood erythrocyte [distwidth] in red blood cells by automated count 13 % low: 11.3%h igh: 14.8% Not Available Not Available 02/15/2025 12:06:27 02/26/20 24 02/26/2024 CBC W Auto Diffe renti al panel - Blood platelets [#/volume] in blood by automated count 252 text: 150 - 420 x10e9/ L Not Available Not Available 02/15/2025 12:06:27 02/26/20 24 02/26/2024 CBC W Auto Diffe renti al panel - Blood platelet [entitic mean volume] in blood by automated count 9.1 fL low: 7.8fLh igh: 11.4fL Not Available Not Available 02/15/2025 12:06:27 02/26/20 24 02/26/2024 CBC W Auto Diffe renti al panel - Blood neutrophils/ leukocytes in blood by automated count 81.2 % low: 41%hig h: 74% high Not Available Not Available 02/15/2025 12:06:27 02/26/20 24 02/26/2024 CBC W Auto Diffe renti al panel - Blood lymphocytes/ leukocytes in blood by automated count 10.7 % low: 17%hig h: 47% low Not Available Not Available 02/15/2025 12:06:27 02/26/20 24 02/26/2024 CBC W Auto Diffe renti al panel - Blood monocytes/le ukocytes in blood by automated count 6.9 % low: 3%high : 11% Not Available Not Available 02/15/2025 12:06:27 02/26/20 24 02/26/2024 CBC W Auto Diffe renti al panel - Blood eosinophils/ leukocytes in blood by automated count 0.5 % low: 0%high : 7% Not Available Not Available 02/15/2025 12:06:27 02/26/20 24 02/26/2024 CBC W Auto Diffe renti al panel - Blood basophils/le ukocytes in blood by automated count 0.2 % low: 0%high : 1.6% Not Available Not Available 02/15/2025 12:06:27 02/26/20 24 02/26/2024 CBC W Auto Diffe renti al panel - Blood immature granulocytes /leukocytes in blood by automated count 0.5 % low: 0%high : 1% Not Available Not Available 02/15/2025 12:06:27 02/26/20 24 02/26/2024 CBC W Auto Diffe renti al panel - Blood neutrophils [#/volume] in blood by automated count 10.58 text: 1.60 - 7.50 x10e9/ L high Not Available Not Available 02/15/2025 12:06:27 02/26/20 24 02/26/2024 CBC W Auto Diffe renti al panel - Blood lymphocytes [#/volume] in blood by automated count 1.39 text: 1.00 - 4.40 x10e9/ L Not Available Not Available 02/15/2025 12:06:27 02/26/20 24 02/26/2024 CBC W Auto Diffe renti al panel - Blood monocytes [#/volume] in blood by automated count 0.9 text: 0.15 - 1.00 x10e9/ L Not Available Not Available 02/15/2025 12:06:27 02/26/20 24 02/26/2024 CBC W Auto Diffe renti al panel - Blood eosinophils [#/volume] in blood 0.07 text: 0.00 - 0.60 x10e9/ L Not Available Not Available 02/15/2025 12:06:27 02/26/20 24 02/26/2024 CBC W Auto Diffe renti al panel - Blood basophils [#/volume] in blood by automated count 0.03 text: 0.00 - 0.13 x10e9/ L Not Available Not Available 02/15/2025 12:06:27 02/26/20 24 02/26/2024 CBC W Auto Diffe renti al panel - Blood interpretati on and review of laboratory results Abnorm al Not Available Not Available 12:06:27 02/26/20 24 02/26/2024 Compr ehens katherine metab olic 1999 panel - Serum or Plasm a urea nitrogen [mass/volume ] in serum or plasma 18 mg/dL low: 7mg/dL high: 26mg/d L Not Available Not Available 02/15/2025 12:06:27 02/26/20 24 02/26/2024 Compr ehens katherine metab olic 1999 panel - Serum or Plasm a creatinine [mass/volume ] in serum or plasma 0.99 mg/dL low: 0.71mg /dLhig h: 1.16mg /dL Not Available Not Available 02/15/2025 12:06:27 02/26/20 24 02/26/2024 Compr ehens katherine metab olic 1999 panel - Serum or Plasm a sodium [moles/volum e] in serum or plasma 143 mmol/ L low: 136mmo l/Lhig h: 145mmo l/L Not Available Not Available 02/15/2025 12:06:27 02/26/20 24 02/26/2024 Compr ehens katherine metab olic 1999 panel - Serum or Plasm a potassium [moles/volum e] in serum or plasma 4.2 mmol/ L low: 3.5mmo l/Lhig h: 4.5mmo l/L Not Available Not Available 02/15/2025 12:06:27 02/26/20 24 02/26/2024 Compr ehens katherine metab olic 1999 panel - Serum or Plasm a chloride [moles/volum e] in serum or plasma 110 mmol/ L low: 98mmol /Lhigh : 107mmo l/L high Not Available Not Available 02/15/2025 12:06:27 02/26/20 24 02/26/2024 [facility] [employer] katherine [employer] [facility] 1999 panel - Serum or Plasm a carbon dioxide, total [moles/volum e] in serum or plasma 24 mmol/ L low: 22mmol /Lhigh : 29mmol /L Not Available Not Available 02/15/2025 12:06:27 02/26/20 24 02/26/2024 [facility] [employer] [facility] 1999 panel - Serum or Plasm a glucose [mass/volume ] in serum or plasma 96 mg/dL low: 70mg/d Lhigh: 115mg/ dL Not Available Not Available 02/15/2025 12:06:27 02/26/20 24 02/26/2024 [facility] [employer] [facility] 1999 panel - Serum or Plasm a calcium [moles/volum e] in serum or plasma 10.8 mg/dL low: 8.4mg/ dLhigh : 10.2mg /dL high Not Available Not Available 02/15/2025 12:06:27 02/26/20 24 02/26/2024 [facility] [employer] [facility] 1999 panel - Serum or Plasm a protein [mass/volume ] in serum or plasma 7.8 g/dL low: 6g/dLh igh: 8.3g/d L Not Available Not Available 02/15/2025 12:06:27 02/26/20 24 02/26/2024 [facility] katherine [employer] [facility] 1999 panel - Serum or Plasm a albumin [mass/volume ] in serum or plasma by bromocresol green (bcg) dye binding method 4.1 g/dL low: 3.4g/d Lhigh: 5g/dL Not Available Not Available 02/15/2025 12:06:27 02/26/20 24 02/26/2024 [facility] [employer] [facility] 1999 panel - Serum or Plasm a bilirubin.to vidal [mass/volume ] in serum or plasma 0.2 mg/dL low: 0.2mg/ dLhigh : 1.2mg/ dL Not Available Not Available 02/15/2025 12:06:27 02/26/20 24 02/26/2024 [facility] [employer] katherine [employer] ol 2000 panel - Serum or Plasm a alkaline phosphatase [enzymatic activity/vol ume] in serum or plasma 144 U/L low: 40U/Lh igh: 150U/L Not Available Not Available 02/15/2025 12:06:27 02/26/20 24 02/26/2024 Compr ehens katherine metab olic 1999 panel - Serum or Plasm a alanine aminotransfe rase [enzymatic activity/vol ume] in serum or plasma by no addition of P-5'-P 15 U/L low: 5U/Lhi gh: 55U/L Not Available Not Available 02/15/2025 12:06:27 02/26/20 24 02/26/2024 Compr ehens katherine metab olic 1999 panel - Serum or Plasm a aspartate aminotransfe rase [enzymatic activity/vol ume] in serum or plasma 16 U/L low: 5U/Lhi gh: 34U/L Not Available Not Available 02/15/2025 12:06:27 02/26/20 24 02/26/2024 Compr ehens katherine metab olic 1999 panel - Serum or Plasm a anion gap 9 low: 6high: 16 Not Available Not Available 02/15/2025 12:06:27 02/26/20 24 02/26/2024 Compr ehens katherine metab olic 1999 panel - Serum or Plasm a urea nitrogen/cre atinine [mass ratio] in serum or plasma 18 low: 7high: 23 Not Available Not Available 02/15/2025 12:06:27 02/26/20 24 02/26/2024 Compr ehens katherine metab olic 1999 panel - Serum or Plasm a osmolality calculated 298 text: 275 - 295 mOsm/k g high Not Available Not Available 02/15/2025 12:06:27 02/26/20 24 02/26/2024 Compr ehens katherine metab olic 1999 panel - Serum or Plasm a albumin/glob ulin ratio 1.1 low: 1.1hig h: 2.3 Not Available Not Available 02/15/2025 12:06:27 02/26/20 24 02/26/2024 Compr ehens katherine metab olic 2000 panel - Serum or Plasm a glomerular filtration rate [volume rate/area] in serum, plasma or blood by creatinine-b ased formula (CKD-epi)/1. 73 sq M 86 text: >=90 mL/min /1.73 m2 low Not Available Not Available 02/15/2025 12:06:27 02/26/20 24 02/26/2024 Compr ehens katherine metab olic 2000 panel - Serum or Plasm a interpretati on and review of laboratory results Abnorm al Not Available Not Available 12:06:27 02/26/20 24 03/02/2024 Bacte alon ident ified in Blood by Cultu re microorganis m identified in specimen by culture No growth day 5 Not Available Not Available 12:06:27 02/26/20 24 03/02/2024 Bacte alon ident ified in Blood by Cultu re interpretati on and review of laboratory results Normal Not Available Not Available 01/24 12:06:27 02/27/20 24 02/27/2024 Compr ehens katherine metab olic 1999 panel - Serum or Plasm a urea nitrogen [mass/volume ] in serum or plasma 12 mg/dL low: 7mg/dL high: 26mg/d L Not Available Not Available 02/15/2025 12:06:28 02/27/20 24 02/27/2024 Compr ehens katherine metab olic 1999 panel - Serum or Plasm a creatinine [mass/volume ] in serum or plasma 0.82 mg/dL low: 0.71mg /dLhig h: 1.16mg /dL Not Available Not Available 02/15/2025 12:06:28 02/27/20 24 02/27/2024 Compr ehens katherine metab olic 1999 panel - Serum or Plasm a sodium [moles/volum e] in serum or plasma 142 mmol/ L low: 136mmo l/Lhig h: 145mmo l/L Not Available Not Available 02/15/2025 12:06:28 02/27/20 24 02/27/2024 Compr ehens katherine metab olic 1999 panel - Serum or Plasm a potassium [moles/volum e] in serum or plasma 3.7 mmol/ L low: 3.5mmo l/Lhig h: 4.5mmo l/L Not Available Not Available 02/15/2025 12:06:28 02/27/20 24 02/27/2024 Compr ehens katherine metab olic 1999 panel - Serum or Plasm a chloride [moles/volum e] in serum or plasma 111 mmol/ L low: 98mmol /Lhigh : 107mmo l/L high Not Available Not Available 02/15/2025 12:06:28 02/27/20 24 02/27/2024 [facility] 1999 panel - Serum or Plasm a carbon dioxide, total [moles/volum e] in serum or plasma 26 mmol/ L low: 22mmol /Lhigh : 29mmol /L Not Available Not Available 02/15/2025 12:06:28 02/27/20 24 02/27/2024 [facility] 1999 panel - Serum or Plasm a glucose [mass/volume ] in serum or plasma 109 mg/dL low: 70mg/d Lhigh: 115mg/ dL Not Available Not Available 02/15/2025 12:06:28 02/27/20 24 02/27/2024 [facility] 1999 panel - Serum or Plasm a calcium [moles/volum e] in serum or plasma 8.8 mg/dL low: 8.4mg/ dLhigh : 10.2mg /dL Not Available Not Available 02/15/2025 12:06:28 02/27/20 24 02/27/2024 [facility] 1999 panel - Serum or Plasm a protein [mass/volume ] in serum or plasma 5.8 g/dL low: 6g/dLh igh: 8.3g/d L low Not Available Not Available 02/15/2025 12:06:28 02/27/20 24 02/27/2024 [facility] 1999 panel - Serum or Plasm a albumin [mass/volume ] in serum or plasma by bromocresol green (bcg) dye binding method 3.1 g/dL low: 3.4g/d Lhigh: 5g/dL low Not Available Not Available 02/15/2025 12:06:28 02/27/20 24 02/27/2024 [place] [id number] panel - Serum or Plasm a bilirubin.to vidal [mass/volume ] in serum or plasma 0.3 mg/dL low: 0.2mg/ dLhigh : 1.2mg/ dL Not Available Not Available 02/15/2025 12:06:28 02/27/20 24 02/27/2024 Compr ehens katherine metab olic 1999 panel - Serum or Plasm a alkaline phosphatase [enzymatic activity/vol ume] in serum or plasma 103 U/L low: 40U/Lh igh: 150U/L Not Available Not Available 02/15/2025 12:06:28 02/27/20 24 02/27/2024 Compr ehens katherine metab olic 1999 panel - Serum or Plasm a alanine aminotransfe rase [enzymatic activity/vol ume] in serum or plasma by no addition of P-5'-P 12 U/L low: 5U/Lhi gh: 55U/L Not Available Not Available 02/15/2025 12:06:28 02/27/20 24 02/27/2024 [facility] ehens katherine metab olic 1999 panel - Serum or Plasm a aspartate aminotransfe rase [enzymatic activity/vol ume] in serum or plasma 13 U/L low: 5U/Lhi gh: 34U/L Not Available Not Available 02/15/2025 12:06:28 02/27/20 24 02/27/2024 Compr ehens katherine metab olic 1999 panel - Serum or Plasm a anion gap 5 low: 6high: 16 low Not Available Not Available 02/15/2025 12:06:28 02/27/20 24 02/27/2024 [facility] ehens katherine metab olic 1999 panel - Serum or Plasm a urea nitrogen/cre atinine [mass ratio] in serum or plasma 15 low: 7high: 23 Not Available Not Available 02/15/2025 12:06:28 02/27/20 24 02/27/2024 Compr ehens katherine metab olic 1999 panel - Serum or Plasm a osmolality calculated 294 text: 275 - 295 mOsm/k g Not Available Not Available 02/15/2025 12:06:28 02/27/20 24 02/27/2024 Compr ehens katherine metab olic 2000 panel - Serum or Plasm a albumin/glob ulin ratio 1.1 low: 1.1hig h: 2.3 Not Available Not Available 02/15/2025 12:06:28 02/27/20 24 02/27/2024 Compr ehens katherine metab olic 2000 panel - Serum or Plasm a glomerular filtration rate [volume rate/area] in serum, plasma or blood by creatinine-b ased formula (CKD-epi)/1. 73 sq M text: >=90 mL/min /1.73 m2 Not Available Not Available 02/15/2025 12:06:28 02/27/2002/27/[facility] - Serum or Plasm a interpretati on and review of laboratory results Abnorm al Not Available Not Available 12:06:28 02/27/2002/27/2024 CBC panel - Blood by Autom ated count leukocytes [#/volume] in blood by automated count 7.9 text: 4.0 - 10.7 x10e9/ L Not Available Not Available 02/15/2025 12:06:28 02/27/2002/27/2024 CBC panel - Blood by Autom ated count erythrocytes [#/volume] in blood by automated count 3.42 text: 4.30 - 5.80 x10e12 /L low Not Available Not Available 02/15/2025 12:06:28 02/27/2002/27/2024 CBC panel - Blood by Autom ated count hemoglobin [mass/volume ] in blood 10.9 g/dL low: 13.3g/ dLhigh : 17.5g/ dL low Not Available Not Available 02/15/2025 12:06:28 02/27/2002/27/2024 CBC panel - Blood by Autom ated count hematocrit [volume fraction] of blood by automated count 32.4 % low: 38.7%h igh: 51.1% low Not Available Not Available 02/15/2025 12:06:28 02/27/2002/27/2024 CBC panel - Blood by Autom ated count MCV [entitic mean volume] in red blood cells by automated count 94.7 fL low: 80fLhi gh: 98fL Not Available Not Available 02/15/2025 12:06:28 02/27/2002/27/2024 CBC panel - Blood by Autom ated count MCH [entitic mass] by automated count 31.9 pg low: 26.7pg high: 33.6pg Not Available Not Available 02/15/2025 12:06:28 02/27/2002/27/2024 CBC panel - Blood by Autom ated count MCHC [entitic mass/volume] in red blood cells by automated count 33.6 g/dL low: 31.7g/ dLhigh : 36.3g/ dL Not Available Not Available 02/15/2025 12:06:28 02/27/20 24 02/27/2024 CBC panel - Blood by Autom ated count erythrocyte [distwidth] in red blood cells by automated count 13.1 % low: 11.3%h igh: 14.8% Not Available Not Available 02/15/2025 12:06:28 02/27/2002/27/2024 CBC panel - Blood by Autom ated count platelets [#/volume] in blood by automated count 165 text: 150 - 420 x10e9/ L Not Available Not Available 02/15/2025 12:06:28 02/27/2002/27/2024 CBC panel - Blood by Autom ated count platelet [entitic mean volume] in blood by automated count 9 fL low: 7.8fLh igh: 11.4fL Not Available Not Available 02/15/2025 12:06:28 02/27/2002/27/2024 CBC panel - Blood by Autom ated count interpretati on and review of laboratory results Abnorm al Not Available Not Available 12:06:28 02/28/20 24 03/02/2024 Bacte alon ident ified in Wound by Cultu re microorganis m identified in specimen by culture No growth Not Available Not Available 12:06:28 02/28/20 24 03/02/2024 Bacte alon ident ified in Wound by Cultu re microscopic observation [identifier] in specimen by gram stain No organi sms seen Not Available Not Available 12:06:28 02/28/20 24 03/02/2024 Bacte alon ident ified in Wound by Cultu re microscopic observation [identifier] in specimen by gram stain No polymo rphonu clear cells Not Available Not Available 12:06:28 02/28/20 24 03/02/2024 Bacte alon ident ified in Wound by Cultu re microorganis m identified in specimen by culture No growth Not Available Not Available 12:06:28 02/28/20 24 03/02/2024 Bacte alon ident ified in Wound by Cultu re microscopic observation [identifier] in specimen by gram stain No polymo rphonu clear cells Not Available Not Available 12:06:28 02/28/20 24 03/02/2024 Bacte alon ident ified in Wound by Cultu re microscopic observation [identifier] in specimen by gram stain No organi sms seen Not Available Not Available 12:06:28 02/28/20 24 03/02/2024 Tissu e Patho logy biops y repor t pathology report.secti on heading Surgic al Pathol ogy Report Case: [id number] Author izing Provid er: Sara Dias MD [facility] mayra: 2023 07:13 PM Orderi ng Locati on: [facility] Early Admiss ion Unit Receiv ed: 2023 04:46 AM Pathol ogist: Leslee Lamar MD Specim en: Amputa tion Finger , Right middle finger Not Available Not Available 12:06:28 02/28/20 24 03/02/2024 Tissu e Patho logy biops y repor t pathology report final diagnosis narrative Finger , right middle , disart iculat ion (A): - Skin ulcera tion and marked inflam mation - Acute osteom yeliti s Not Available Not Available 12:06:28 02/28/20 24 03/02/2024 Tissu e Patho logy biops y repor t pathology report microscopic observation narrative other stain As this is a disart iculat ion specim en, there is no bone margin for assess ment. Not Available Not Available 12:06:28 02/28/20 24 03/02/2024 Tissu e Patho logy biops y repor t pathology report relevant history narrative The patien t is a 63 year old man with longst anding wound over the middle phalan x with chroni c swelli ng of the right middle finger . Not Available Not Available 12:06:28 02/28/20 24 03/02/2024 Tissu e Patho logy biops y repor t pathology report gross observation narrative The requis ition and specim en(s) are identi fied with the patien t's name, Fletcher sher Receiv ed in formal in, specim en A, is a disart iculat ed digit specim en measur ing 6.0 x 2.5 x 2.5 cm. The specim en is surfac ed by xie-t an, wrinkl ed skin with focal slough ing. At the distal most aspect of the specim en is a shelton-ye llow thicke natalie nailbe d measur ing 1.5 x 1.5 cm. On the skin surfac e there is a focal shelton-br own area of ulcera tion measur ing 1.0 x 0.5 cm. This area is locate d 1.7 cm to the closes t skin and subcut aneous soft tissue margin . Sectio rajendra throug h this area shows shelton-ye llow to red-br own soften ed underl delores bone. A repres entati ve sectio n with lesion and underl delores bone is submit mayra in A1-A2 follow ing decalc ificat ion. MSL Not Available Not Available 12:06:28 02/28/20 24 03/02/2024 Tissu e Patho logy biops y repor t pathologist location at [facility] Not Available Not Available 12:06:28 02/28/20 24 03/02/2024 Tissu e Patho logy biops y repor t service comment The perfor nora silvaist ics of all immuno histoc hemica l and indire ct immuno fluore scence stains (if any) cited in this report were determ ined by the Histop byron barajas of [facility]. Some of these tests were develo ped by our own yoon barajas and have not been cleare d or approv ed by the [place] Food and Drug Admini strati on. The FDA does not requir e this test to go throug h premar ket FDA review . These tests are used for clinic al purpos es. They should not be regard ed as invest igatio nal or for resear ch. This yoon barajas is certif ied under the Clinic al Yoon barajas Improv ement Amendm ents (CLIA) as qualif ied to perfor m [facility] clinic al yoon barajas obi [place]. This case has been person ally review ed and interp reted by the attend ing (teach ing) pathol ogist. Not Available Not Available 12:06:28 02/28/2003/02/2024 Tissu e Patho logy biops y repor t embedded images Not Available Not Available 01/24 12:06:02/29/2002/29/2024 CBC W Auto Diffe renti al panel - Blood leukocytes [#/volume] in blood by automated count 5.8 text: 4.0 - 10.7 x10e9/ L Not Available Not Available 02/15/2025 12:06:28 02/29/2002/29/2024 CBC W Auto Diffe renti al panel - Blood erythrocytes [#/volume] in blood by automated count 4.05 text: 4.30 - 5.80 x10e12 /L low Not Available Not Available 02/15/2025 12:06:28 02/29/2002/29/2024 CBC W Auto Diffe renti al panel - Blood hemoglobin [mass/volume ] in blood 12.7 g/dL low: 13.3g/ dLhigh : 17.5g/ dL low Not Available Not Available 02/15/2025 12:06:28 02/29/2002/29/2024 CBC W Auto Diffe renti al panel - Blood hematocrit [volume fraction] of blood by automated count 37.2 % low: 38.7%h igh: 51.1% low Not Available Not Available 02/15/2025 12:06:28 02/29/2002/29/2024 CBC W Auto Diffe renti al panel - Blood MCV [entitic mean volume] in red blood cells by automated count 91.9 fL low: 80fLhi gh: 98fL Not Available Not Available 02/15/2025 12:06:28 02/29/2002/29/2024 CBC W Auto Diffe renti al panel - Blood MCH [entitic mass] by automated count 31.4 pg low: 26.7pg high: 33.6pg Not Available Not Available 02/15/2025 12:06:28 02/29/2002/29/2024 CBC W Auto Diffe renti al panel - Blood MCHC [entitic mass/volume] in red blood cells by automated count 34.1 g/dL low: 31.7g/ dLhigh : 36.3g/ dL Not Available Not Available 02/15/2025 12:06:28 02/29/20 24 02/29/2024 CBC W Auto Diffe renti al panel - Blood erythrocyte [distwidth] in red blood cells by automated count 12.2 % low: 11.3%h igh: 14.8% Not Available Not Available 02/15/2025 12:06:28 02/29/2002/29/2024 CBC W Auto Diffe renti al panel - Blood platelets [#/volume] in blood by automated count 194 text: 150 - 420 x10e9/ L Not Available Not Available 02/15/2025 12:06:28 02/29/2002/29/2024 CBC W Auto Diffe renti al panel - Blood platelet [entitic mean volume] in blood by automated count 9 fL low: 7.8fLh igh: 11.4fL Not Available Not Available 02/15/2025 12:06:28 02/29/2002/29/2024 CBC W Auto Diffe renti al panel - Blood neutrophils/ leukocytes in blood by automated count 90 % low: 41%hig h: 74% high Not Available Not Available 02/15/2025 12:06:28 02/29/2002/29/2024 CBC W Auto Diffe renti al panel - Blood lymphocytes/ leukocytes in blood by automated count 7.6 % low: 17%hig h: 47% low Not Available Not Available 02/15/2025 12:06:28 02/29/20 24 02/29/2024 CBC W Auto Diffe renti al panel - Blood monocytes/le ukocytes in blood by automated count 2.1 % low: 3%high : 11% low Not Available Not Available 02/15/2025 12:06:28 02/29/2002/29/2024 CBC W Auto Diffe renti al panel - Blood eosinophils/ leukocytes in blood by automated count 0 % low: 0%high : 7% Not Available Not Available 02/15/2025 12:06:28 02/29/2002/29/2024 CBC W Auto Diffe renti al panel - Blood basophils/le ukocytes in blood by automated count 0 % low: 0%high : 1.6% Not Available Not Available 02/15/2025 12:06:28 02/29/2002/29/2024 CBC W Auto Diffe renti al panel - Blood immature granulocytes /leukocytes in blood by automated count 0.3 % low: 0%high : 1% Not Available Not Available 02/15/2025 12:06:28 02/29/2002/29/2024 CBC W Auto Diffe renti al panel - Blood neutrophils [#/volume] in blood by automated count 5.21 text: 1.60 - 7.50 x10e9/ L Not Available Not Available 02/15/2025 12:06:28 02/29/2002/29/2024 CBC W Auto Diffe renti al panel - Blood lymphocytes [#/volume] in blood by automated count 0.44 text: 1.00 - 4.40 x10e9/ L low Not Available Not Available 02/15/2025 12:06:28 02/29/2002/29/2024 CBC W Auto Diffe renti al panel - Blood monocytes [#/volume] in blood by automated count 0.12 text: 0.15 - 1.00 x10e9/ L low Not Available Not Available 02/15/2025 12:06:28 02/29/2002/29/2024 CBC W Auto Diffe renti al panel - Blood eosinophils [#/volume] in blood 0 text: 0.00 - 0.60 x10e9/ L Not Available Not Available 02/15/2025 12:06:28 02/29/2002/29/2024 CBC W Auto Diffe renti al panel - Blood basophils [#/volume] in blood by automated count 0 text: 0.00 - 0.13 x10e9/ L Not Available Not Available 02/15/2025 12:06:28 02/29/202024 CBC W Auto Diffe cameron al panel - Blood interpretati on and review of laboratory results Abnorm al Not Available Not Available 12:06:28 02/29/2002/29/2024 [facility] 1999 panel - Serum or Plasm a urea nitrogen [mass/volume ] in serum or plasma 13 mg/dL low: 7mg/dL high: 26mg/d L Not Available Not Available 02/15/2025 12:06:28 02/29/20 24 02/29/2024 [facility] 1999 panel - Serum or Plasm a creatinine [mass/volume ] in serum or plasma 0.81 mg/dL low: 0.71mg /dLhig h: 1.16mg /dL Not Available Not Available 02/15/2025 12:06:28 02/29/20 24 02/29/2024 [facility] 1999 panel - Serum or Plasm a sodium [moles/volum e] in serum or plasma 139 mmol/ L low: 136mmo l/Lhig h: 145mmo l/L Not Available Not Available 02/15/2025 12:06:28 02/29/20 24 02/29/2024 [facility] 1999 panel - Serum or Plasm a potassium [moles/volum e] in serum or plasma 4.3 mmol/ L low: 3.5mmo l/Lhig h: 4.5mmo l/L Not Available Not Available 02/15/2025 12:06:28 02/29/20 24 02/29/2024 [facility] 1999 panel - Serum or Plasm a chloride [moles/volum e] in serum or plasma 106 mmol/ L low: 98mmol /Lhigh : 107mmo l/L Not Available Not Available 02/15/2025 12:06:28 02/29/20 24 02/29/2024 [facility] 1999 panel - Serum or Plasm a carbon dioxide, total [moles/volum e] in serum or plasma 28 mmol/ L low: 22mmol /Lhigh : 29mmol /L Not Available Not Available 02/15/2025 12:06:28 02/29/20 24 02/29/2024 [facility] 1999 panel - Serum or Plasm a glucose [mass/volume ] in serum or plasma 159 mg/dL low: 70mg/d Lhigh: 115mg/ dL high Not Available Not Available 02/15/2025 12:06:28 02/29/20 24 02/29/2024 [facility] 2000 panel - Serum or Plasm a calcium [moles/volum e] in serum or plasma 9.1 mg/dL low: 8.4mg/ dLhigh : 10.2mg /dL Not Available Not Available 02/15/2025 12:06:28 02/29/20 24 02/29/2024 [facility] 2000 panel - Serum or Plasm a anion gap 5 low: 6high: 16 low Not Available Not Available 02/15/2025 12:06:28 02/29/2002/29/2024 [facility] 1999 panel - Serum or Plasm a urea nitrogen/cre atinine [mass ratio] in serum or plasma 16 low: 7high: 23 Not Available Not Available 02/15/2025 12:06:28 02/29/20 24 02/29/2024 [facility] 1999 panel - Serum or Plasm a osmolality calculated 291 text: 275 - 295 mOsm/k g Not Available Not Available 02/15/2025 12:06:28 02/29/20 24 02/29/2024 [facility] 2000 panel - Serum or Plasm a glomerular filtration rate [volume rate/area] in serum, plasma or blood by creatinine-b ased formula (CKD-epi)/1. 73 sq M text: >=90 mL/min /1.73 m2 Not Available Not Available 02/15/2025 12:06:28 02/29/20 24 02/29/2024 [facility] 2000 panel - Serum or Plasm a interpretati on and review of laboratory results Abnorm al Not Available Not Available 12:06:28 02/29/20 24 02/29/2024 Vanco mycin [Mass /volu me] in Serum or Plasm a --tro ugh vancomycin [mass/volume ] in serum or plasma --trough 6.6 ug/mL low: 10ug/m Lhigh: 20ug/m L low Not Available Not Available 02/15/2025 12:06:28 02/29/20 24 02/29/2024 Vanco mycin [Mass /volu me] in Serum or Plasm a --tro ugh Unknown Analyte See instit ution protoc ol. Not Available Not Available 12:06:28 02/29/20 24 02/29/2024 Vanco mycin [Mass /volu me] in Serum or Plasm a --tro ugh interpretati on and review of laboratory results Abnorm al Not Available Not Available 12:06:28 03/30/20 24 04/05/2024 COMPL IANCE DRUG ARMANDO SIS, UR summary report (summary) FINAL ===== ===== ===== ===== ===== ===== ===== ===== ===== ===== ===== ===== ===== === TOXAS SURE COMP DRUG ARMANDO SIS,U R ===== ===== ===== ===== ===== ===== ===== ===== ===== ===== ===== ===== ===== === Test Resul t Flag Units Drug Prese nt Metha mphet amine >4274 ng/mg creat Amphe tamin e 2185 ng/mg creat Sourc es of metha mphet amine inclu de illic it sourc es, as a sched uled presc ripti on medic ation , as a metab olite of some presc ripti on drugs , or use of an l-met hamph etami ne inhal er. Amphe tamin e is an expec mayra metab olite of metha mphet amine . Amphe tamin e is also avail able as a sched ule II presc ripti on drug. Carbo xy-TH C 131 ng/mg creat Carbo xy-TH C is a metab olite of tetra hydro canna binol (THC) . Sourc e of THC is most commo nly herba l marij uana or marij uana- based produ cts, but THC is also prese nt in a sched uled presc ripti on medic ation . Trace amoun ts of THC can be prese nt in hemp and canna bidio l (CBD) produ cts. This test is not inten ded to disti nguis h betwe en delta -9-te trahy droca nnabi nol, the predo minan t form of THC in most herba l or marij uana- based produ cts, and delta -8-te trahy droca nnabi nol. Gabap entin PRESE NT Cyclo benza eliza PRESE NT Desme thylc yclob enzap rine PRESE NT Desme thylc yclob enzap rine is an expec mayra metab olite of cyclo benza eliza . Zolpi dem Acid PRESE NT Zolpi dem acid is an expec mayra metab olite of zolpi dem. Cital opram PRESE NT Desme thylc rebecca pram PRESE NT Desme thylc rebecca pram is an expec mayra metab olite of cital opram or the enant iomer ic form, escit alopr am. Olanz apine PRESE NT Ibupr ofen PRESE NT ===== ===== ===== ===== ===== ===== ===== ===== ===== ===== ===== ===== ===== === Test Resul t Flag Units Ref Range Creat inine 117 mg/dL >=20 ===== ===== ===== ===== ===== ===== ===== ===== ===== ===== ===== ===== ===== === Decla red Medic ation s: Medic ation list was not provi ded. ===== ===== ===== ===== ===== ===== ===== ===== ===== ===== ===== ===== ===== === For clini luis a consu ltati on, pleas e call [phone]. ===== ===== ===== ===== ===== ===== ===== ===== ===== ===== ===== ===== ===== === Not Available [facility] ([facility]) [address], [place], [address], 04/05/2024 15:11:38 03/30/20 24 04/05/2024 COMPL IANCE DRUG ARMANDO SIS, UR pdf . Not Available [facility] ([facility]) [address], [place], [address], 04/05/2024 15:11:38 01/03/20 25 01/09/2025 COMPL IANCE DRUG ARMANDO SIS, UR summary report (summary) FINAL ===== ===== ===== ===== ===== ===== ===== ===== ===== ===== ===== ===== ===== === TOXAS SURE COMP DRUG ARMANDO SIS,U R ===== ===== ===== ===== ===== ===== ===== ===== ===== ===== ===== ===== ===== === Test Resul t Flag Units Drug Prese nt Metha mphet amine 78 ng/mg creat Sourc es of metha mphet amine inclu de illic it sourc es, as a sched uled presc ripti on medic ation , as a metab olite of some presc ripti on drugs , or use of an l-met hamph etami ne inhal er. Carbo xy-TH C 28 ng/mg creat Carbo xy-TH C is a metab olite of tetra hydro canna binol (THC) . Sourc e of THC is most commo nly herba l marij uana or marij uana- based produ cts, but THC is also prese nt in a sched uled presc ripti on medic ation . Trace amoun ts of THC can be prese nt in hemp and canna bidio l (CBD) produ cts. This test is not inten ded to disti nguis h betwe en delta -9-te trahy droca nnabi nol, the predo minan t form of THC in most herba l or marij uana- based produ cts, and delta -8-te trahy droca nnabi nol. Gabap entin PRESE NT Zolpi dem Acid PRESE NT Zolpi dem acid is an expec mayra metab olite of zolpi dem. Cital opram PRESE NT Desme thylc rebecca pram PRESE NT Desme thylc rebecca pram is an expec mayra metab olite of cital opram or the enant iomer ic form, escit alopr am. Olanz apine PRESE NT Aceta minop hen PRESE NT ===== ===== ===== ===== ===== ===== ===== ===== ===== ===== ===== ===== ===== === Test Resul t Flag Units Ref Range Creat inine 151 mg/dL >=20 ===== ===== ===== ===== ===== ===== ===== ===== ===== ===== ===== ===== ===== === Decla red Medic ation s: Medic ation list was not provi ded. ===== ===== ===== ===== ===== ===== ===== ===== ===== ===== ===== ===== ===== === For clini luis a consu ltati on, pleas e call [phone]. ===== ===== ===== ===== ===== ===== ===== ===== ===== ===== ===== ===== ===== === Not Available [facility] ([facility]) [address], [place], [address], 01/09/2025 17:10:36 01/03/20 25 01/09/2025 COMPL IANCE DRUG ARMANDO SIS, UR pdf . Not Available [facility] ([facility]) [address], [place], [address], 01/09/2025 17:10:36 01/13/20 24 01/13/2024 XR, chest , 2 view No observ ation record ed. [address], [place], [address], 01/17/2024 04:42:01 08/05/19 25 08/05/2024 XR, hip, unila teral No observ ation record ed. [address], [place], [address], 08/15/2024 13:00:05 08/05/19 25 08/05/2024 CT, lumba r spine , w/o contr ast No observ ation record ed. [address], [place], [address], 08/15/2024 13:00:23 08/06/19 25 08/05/2024 CT, pelvi s, w/o contr ast No observ ation record ed. [address], [place], [address], 08/15/2024 13:00:59 01/02/20 25 01/01/2025 XR, ribs, unila teral No observ ation record ed. [address], [address], 01/22/2025 09:45:17 Result Notes None recorded. 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 3 10:02:13 Fracture of femur 20106299 Active Not Available [facility] 3 10:02:13 Abscess 635720624 Active Not Available [facility] 3 10:02:13 Nausea 465654411 Active Not Available [facility] 3 10:02:13 Solitary nodule of lung 857339538 Active Not Available [facility] 3 10:02:13 Pain in left lower limb 080700207 Active Not Available [facility] 3 10:02:13 Hernia of abdominal cavity 18323780 Active Not Available [facility] 3 10:02:13 Low back pain 979505194 Active Not Available [facility] 3 10:02:13 Tobacco user 046928761 Active Not Available [facility] 3 10:02:13 Chronic pancreati tis 742564577 Active [facility] 3 10:02:13 Administr ation of influenza vaccine Active 2015 Not Available [facility] 3 10:02:13 Chronic hepatitis C 851444118 Active 2015 successfu lly treated . in 2017 ... Not Available [facility] 3 10:02:13 Depressiv e disorder 76028957 Active 2015 Not Available [facility] 3 10:02:13 Benign prostatic hyperplas ia 747557362 Active 2016 Not Available [facility] 3 10:02:13 Dental caries 61088019 Active 2016 Not Available [facility] 3 10:02:12 Gastroeso phageal reflux disease 930153216 Active 2016 Not Available [facility] 3 10:02:13 Splenomeg john 49624907 Active 2017 Not Available [facility] 3 10:02:13 Left flank pain 399432965 Active 2017 Not Available [facility] 3 10:02:13 Disorder of stomach 26069901 Active 2017 Not Available [facility] 3 10:02:13 Pain of left hip joint 45687381619 9100 Active 2017 Not Available [facility] 3 10:02:13 Steatotic liver disease 342539330 Active 2017 sees GI : they gave him a diet , [facility] [place] Not Available [facility] 3 10:02:13 Irritable bowel syndrome with diarrhea 616680950 Active 2018 Not Available [facility] 3 10:02:13 Anemia 115258742 Active 2018 Not Available [facility] 3 10:02:13 Screening for malignant neoplasm of prostate Active 2018 Not Available [facility] 3 10:02:13 Chronic prostatit is 43643555 Active 2018 Not Available [facility] 3 10:02:13 Myocardia l infarctio n 26965806 Active 2018 2 stents placed , balloon angioplas ty done.STEM I. bent stent unable to remove , a balloon placed 05/29/21 . Not Available [facility] 3 10:02:13 Upper respirato ry infection 78179471 Active 2019 Not Available [facility] 3 10:02:12 Schizophr enia 89531346 Active 2019 getting a new Psych doctor : [facility] in [facility] Not Available [facility] 3 10:02:13 Injury of left hip region 97397696239 269964 Active 2020 Not Available [facility] 3 10:02:13 Hyperlipi demia 23317270 Active 2020 Not Available [facility] 3 10:02:13 Injury of left shoulder 10903747970 114019 Active 2021 Not Available [facility] 3 10:02:13 History of hematuria 508210928 Active 2021 Not Available [facility] 3 10:02:12 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 503680210 Active 2021 Not Available [facility] 3 10:02:13 Degenerat ion of lumbar intervert ebral disc 02807066 Active 2021 Not Available [facility] 3 10:02:13 Full thickness rotator cuff tear 764572389 Active 2021 Not Available [facility] 3 10:02:13 Serum sodium level outside reference range 180892384 Active 2021 Not Available [facility] 3 10:02:13 Hyperglyc emia 15174575 Active 2021 Not Available [facility] 3 10:02:13 Coronary atheroscl erosis 359243295 Active 2021 Not Available [facility] 3 10:02:13 Tobacco dependenc e syndrome 63840455 Active 2022 Seymour Cunningham MD Attn: Accounting ,[address] [place], [address] , [place] [facility] 3 15:32:53 Anxiety 45149456 Active 2022 Seymour Cunningham MD Attn: Accounting ,[address] [facility], [place], [address] , [place] [facility] 3 17:16:36 Diverticu losis of colon 505265740 Active 2023 Seymour Cunningham MD Attn: Accounting ,[address] [facility], [place], [address] , [place] [facility] 4 16:33:07 Postopera tive pain 637142742 Active 2023 Seymour Cunningham MD Attn: Accounting ,[address] [facility], [place], [address] , [facility] 4 11:24:23 Injury of finger 91551369 Active 2023 Seymour Cunningham MD Attn: Accounting ,[address] [facility], [place], [address] , [facility] 4 16:55:19 Medicatio n monitorin g Active 2023 Seymour Cunningham MD Attn: Accounting ,[address] [facility], [place], [address] , [facility] 4 16:57:18 Rib pain 244672224 Active 2024 Seymour Cunningham MD Attn: Accounting ,[address] [place], [address] , [facility] 5 17:52:12 Notes:Some problems listed i n Document: #[id number] could not be added to this patient's chart. Please review this document and add these problems to the patient's chart manually as needed. Problem Notes None recorded. Procedures Surgical History Date Name Laterality Status Provider Name and Address Organization Details Recorded Time 1 Heart Surgery completed Nettie Younger [place] [facility] 06/10/2021 12:05:02 6 Ercp duct stent placement completed Romulo Aaron DO [address] [place], [address], [facility] 06/07/2019 15:28:01 Unlisted px lungs & pleura completed Romulo Aaron DO [address], [place], [address], [facility] 06/07/2019 15:28:56 closed reduction of fracture of left femur and internal fixation using dynamic hip screw plate completed Romulo Aaron DO [address], [place], [address], [facility] 06/07/2019 15:31:14 Eye Surgery completed Tereza Hernandez [place] [facility] 07/31/2014 15:32:03 Imaging Results None [...] BY MOUTH EVERY DAY IN THE EVENING 06/21 /2025 completed Abnormal UDS Not Available Not Available [...] weight Body temperature Oxygen saturation Heart rate Systolic And Diastolic Provider Name and Address Organization Details Last Updated DateTime 3 190.5 cm 25.4 kg/m2 37320.2 5 g 98.1 [degF] 95 % 109 /min 102/64 mm[Hg] Alla Bernal MA [facility] 3 15:14:43 Date Recorded Body height Body mass index (BMI) Body weight Heart rate Oxygen saturation Systolic And Diastolic Provider Name and Address Organization Details Last Updated DateTime 5 190.5 cm 18.5 kg/m2 35819.6 7 g 90 /min 98 % 119/72 mm[Hg] Brittni Mar MA [facility] 5 17:09:57 Date Recorded Body height Body mass index (BMI) Body weight Heart rate Oxygen saturation Systolic And Diastolic Provider Name and Address Organization Details Last Updated DateTime 4 190.5 cm 22.1 kg/m2 00048.8 5 g 101 /min 96 % 130/68 mm[Hg] Jane Alcantara MA [facility] 4 16:08:58 Date Recorded Body height Oxygen saturation Body mass index (BMI) Body weight Heart rate Systolic And Diastolic Provider Name and Address Organization Details Last Updated DateTime 4 190.5 cm 96 % 22.1 kg/m2 94878.8 5 g 97 /min 104/56 mm[Hg] Jane Alcantara MA [facility] 4 16:06:36 Date Recorded Body height Body mass index (BMI) Body weight Body temperature Oxygen saturation Heart rate Respiratory rate Systolic And Diastolic Provider Name and Address Organization Details Last Updated DateTime 5 190.5 cm 21.2 kg/m2 95742.3 4 g 97 [degF] 97 % 75 /min 18 /min 120/74 mm[Hg] Nettie Younger MA [facility] 5 13:52:01 Social History Question Answer Notes LastModified by Organizat ion Details LastModified Time Tobacco Smoking Status Current Every Day Smoker MINDY Campoverde, [facility] 07/31/2014 15:32:03 Do You Have An Advance [...] Do You Have A Medical Power Of Retail Merchandising Specialist? No Information not available 07/31/2014 What Was [...] 1 case per week. Now does not. Information not available 06/07/2019 Do you or have you ever used smokeless tobacco? Never used smokeless tobacco Information not available 12/19/2019 Do you have transportation difficulties? Yes Information not available 07/31/2014 Do you have difficulty doing errands alone? No Information not available 07/31/2014 Are you able to care for yourself independently? 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 [id number] Information not available 11/18/2020 Do you have [...] Y Muscle, Joint, or Bone Problems Y Hepatitis Y Acid Reflux (GERD) Y Heart Attack ([place]) Y Kidney or Bladder Problems Y Depression Y GI Problems Y Immunizations Vaccine Type Date Status Note Provider Nam e and Address Organization Details Recorded Time SARS-COV-2 (COVID-19) vaccine, UNSPECIFIED 1 completed Not Available [facility] 08/19/2022 10:02:14 SARS-COV-2 (COVID-19) vaccine, UNSPECIFIED 1 completed Not Available [facility] 08/19/2022 10:02:14 COVID-19, mRNA, LNP-S, PF, 100 mcg/0.5mL dose or 50 mcg/0.25mL dose 1 completed Not Available [facility] 08/19/2022 10:02:14 SARS-COV-2 (COVID-19) vaccine, UNSPECIFIED 2 completed Not Available [facility] 08/19/2022 10:02:14 Influenza, split virus, quadrivalent, preservative 6 completed Not Available [facility] 08/12/2019 02:44:54 Influenza, split virus, quadrivalent, PF 8 completed Not Available [facility] 04/05/2025 13:39:39 Influenza, MDCK, quadrivalent, PF 2 completed Not Available [facility] 04/05/2025 13:39:39 pneumococcal polysaccharide PPV23 2 completed Not Available [facility] 04/05/2025 13:39:39 COVID-19, mRNA, LNP-S, PF, marie-sucrose, 30 mcg/0.3 mL 4 completed Not Available [facility] 04/05/2025 13:39:39 Influenza, MDCK, quadrivalent, PF 4 completed Not Available [facility] 04/05/2025 13:39:39 RSV, recombinant, protein subunit RSVpreF, adjuvant reconstituted, 0.5 mL, PF 4 completed Not Available [facility] 04/05/2025 13:39:39 Influenza, split virus, quadrivalent, preservative 7 completed Not Available [facility] 08/12/2019 02:50:28 Influenza, split virus, quadrivalent, preservative 9 completed Not Available [facility] 08/12/2019 02:41:29 Influenza, split virus, quadrivalent, preservative 0 completed Nettie [place], [place] [facility] 05/22/2020 12:45:17 Influenza, split virus, quadrivalent, preservative 1 completed Rachelle Tiw[place], [place] [facility] 05/16/2021 12:37:11 Tdap 2 completed Chevy Siu [place], [place] [facility] 11/28/2021 13:38:34 Influenza, split virus, quadrivalent, preservative 5 completed Not Available [facility] 08/12/2019 02:32:11 Influenza, split virus, trivalent, preservative 5 completed Not Available [facility] 08/12/2019 02:45:32 Past Encounters Encounter ID Performer Location Encounter Start Date Encounter Closed Date Diagnosis/Indication Diagnosis SNOMED-CT Code Diagnosis ICD10 Code Diagnosis IMO Codes Diagnosis Note [id number] SALVATORE Andrade (Adult Med) [address] [place] [address] [phone] 07/31/2014 15:00:16 07/31/2014 15:39:21 Low back pain 141053318 Tobacco user 422588950 Chronic pancreatitis 525073900 Active or passive immunization 099046562 [id number] SALVATORE Andrade (Adult Med) [address] [place] [address] [phone] 10/02/2014 14:54:30 10/02/2014 15:58:08 Chronic pancreatitis 010684203 Active or passive immunization 324072340 Low back pain 864490446 Tobacco user 093116477 [id number] SALVATORE Andrade (Adult Med) [address] [place] [address] [id number] 12/04/2014 13:17:23 12/04/2014 17:04:08 Chronic pancreatitis 240370802 Tobacco user 311564731 Low back pain 435963221 [id number] SALVATORE Andrade (Adult Med) [address] [place] [address] [phone] 02/13/2015 11:47:59 02/13/2015 13:43:14 Chronic pancreatitis 372218771 stent removed [address] Aydin Mcdermott Low back pain 424196975 Tobacco user 889724158 Primary fi bromyalgia syndrome 11964748 Adult [facility] th examination 833765235 [id number] SALVATORE Andrade (Adult Med) [address] [place] [address] [phone] 04/19/2015 11:57:35 04/19/2015 13:25:23 Adult health examination 217541371 Chronic pancreatitis 027629807 stent removed [address] Aydin Mcdermott Low back pain 428831616 Primary fi bromyalgia syndrome 29751899 Tobacco user 226478851 Chronic ob structive pulmonary disease 26494135 [id number] SALVATORE Andrade (Adult Med) [address] [place] [address] [id number] 06/17/2015 11:16:21 06/17/2015 12:01:16 Administration of influenza vaccine 76788630 Z23 Chronic ob structive pulmonary disease 39825378 J44.9 Chronic pancreatitis 235 300866 K86.1 stent removed [address] Aydin Mcdermott Low back pain 823338925 M54.5 Primary fi bromyalgia syndrome 39094384 M79.7 Tobacco user 443400557 Z 72.0 Insomnia 587195114 G47.0 0 [id number] SALVATORE Andrade (Adult Med) [address] [place] [address] [id number] 07/25/2015 15:28:06 07/25/2015 16:37:37 Fracture of shaft of femur 92350792 S72.302A [id number] SALVATORE Andrade (Adult Med) [address] [place] [address] [id number] 08/19/2015 14:26:47 08/19/2015 18:06:42 Fracture of femur 65142287 S72.92XA hilda in place Abscess 941315378 L02.91 teeth Nausea 444750190 R11.0 [id number] SALVATORE Andrade (Adult Med) [address] [place] [address] [id number] 08/30/2015 13:33:28 08/30/2015 15:23:23 Removal of mercedez 24303783 Z48.02 Chronic ob structive pulmonary disease 30984567 J44.9 Chronic pancreatitis 235 866709 K86.1 stent removed [address] Aydin Mcdermott Fracture of femur 532138 00 S72.[address]XA hilda in place Insomnia 643036539 G47.0 0 Low back pain 045170307 M54.5 Tobacco user 754129063 Z 72.0 [id number] SALVATORE Andrade (Adult Med) [address] [place] [address] [id number] 09/24/2015 15:00:37 09/24/2015 15:29:31 Chronic obstructive pulmonary disease 51629303 J44.9 Fracture of femur 656770 [address] in place Insomnia 560188198 G47.0 0 Low back pain 718738537 M54.5 Primary fi bromyalgia syndrome 64788803 M79.7 Tobacco user 248436372 Z 72.0 Solitary n odule of lung 636200747 R91.1 4 mm left upper lung [id number] SALVATORE Andrade (Adult Med) [address] [place] [address] [id number] 11/26/2015 13:58:59 11/26/2015 14:26:15 Chronic obstructive pulmonary disease 71262608 J44.9 Chronic pancreatitis 235 500475 K86.1 stent removed [address] Aydin Mcdermott Insomnia 040199540 G47.0 0 Low back pain 994438238 M54.5 Primary fi bromyalgia syndrome 43481338 M79.7 Solitary n odule of lung 535927524 R91.1 4 mm left upper lung Tobacco user 530125718 Z 72.0 Dental abscess 771801088 K04.7 [id number] MD Tobin Todd (Adult Med) [address] [place] [address] [id number] 01/23/2016 14:38:11 01/23/2016 15:33:03 Fracture of shaft of femur 34869241 S72.302A Insomnia 705429271 G47.0 0 Low back pain 953647473 M54.5 Primary fi bromyalgia syndrome 09867147 M79.7 Tobacco user 975739037 Z 72.0 [id number] MD Tobin Todd (Adult Med) [address] [place] [address] [id number] 03/19/2016 14:03:39 03/19/2016 14:49:41 Low back pain 878239350 M54.5 Pain in le ft lower limb 567632369 M79.510 [id number] MD Tobin Todd (Adult Med) [address] [place] [address] [phone] 05/19/2016 15:00:30 05/19/2016 15:53:48 Chronic pancreatitis 498760827 K86.1 stent removed [address] Aydin Mcdermott Low back pain 772486778 M54.5 Chronic ob structive pulmonary disease 92396575 J44.9 Tobacco user 258553364 Z 72.0 Administra tion of influenza vaccine 08791427 Z23 [id number] MD Tobin Todd (Adult Med) [address] [place] [address] [id number] 07/14/2016 14:31:06 07/14/2016 15:59:20 Dental abscess 497798476 K04.7 Low back pain 883571124 M54.5 Chronic pancreatitis 235 755380 K86.1 stent removed [address] Aydin Mcdermott Chronic ob structive pulmonary disease 61231824 J44.9 Insomnia 680496895 G47.0 0 Tobacco user 991849864 Z 72.0 Chronic hepatitis C 1283 52536 B18.2 Pain in le ft lower limb 123372439 M79.605 Depressive disorder 3548 9007 F32.89 [id number] Dejon Woods MD [facility] (Adult Med) [address] [place] [address] [id number] 09/15/2016 14:01:19 09/15/2016 14:28:10 Chronic obstructive pulmonary disease 35584934 J44.9 Low back pain 777567920 M54.5 Tobacco user 575996080 Z 72.0 [id number] Dejon Woods MD [facility] (Adult Med) [address] [place] [address] [id number] 11/13/2016 14:01:06 11/13/2016 14:34:56 Chronic pancreatitis 611063550 K86.1 stent removed [address] Aydin Mcdermott Chronic ob structive pulmonary disease 46246340 J44.9 Tobacco user 178465491 Z 72.0 Chronic hepatitis C 1283 18915 B18.2 Depressive disorder 3548 9007 F32.89 Primary fi bromyalgia syndrome 29973704 M79.7 Dental abscess 599023459 K04.7 Low back pain 686439266 M54.5 [id number] Dejon Woods MD [facility] (Adult Med) [address] [place] [address] [id number] 01/13/2017 09:49:50 01/14/2017 10:08:12 Fracture of shaft of femur 17032718 S72.302A Low back pain 677889441 M54.5 [id number] MD Tobin Todd (Adult Med) [address] [place] [address] [id number] 03/17/2017 10:38:01 03/17/2017 11:38:23 Fracture of shaft of femur 30689838 S72.302A Benign pro static hyperplasia 935120219 N40.1 Dental abscess 339131986 K04.7 Low back pain 278028949 M54.5 [id number] MD Tobin Todd (Adult Med) [address] [place] [address] [id number] 05/19/2017 11:27:57 05/19/2017 12:59:25 Pain in left lower limb 733149048 M79.605 Chronic ob structive pulmonary disease 41160714 J44.9 Tobacco user 512953862 Z 72.0 Dental caries 40035809 K 02.9 Low back pain 588417067 M54.5 Administra tion of influenza vaccine 01448371 Z23 Gastroesop hageal reflux disease 015890000 K21.0 Depressive disorder 3548 9007 F32.89 Dental abscess 685529321 K04.7 [id number] Dejon Woods MD [facility] (Adult Med) [address] [place] [address] [phone] 07/14/2017 10:50:11 07/14/2017 11:56:18 Dental caries 61509812 K02.9 Low back pain 964169306 M54.5 Insomnia 649497986 G47.0 0 Primary fi bromyalgia syndrome 06198643 M79.7 Chronic ob structive pulmonary disease 76681751 J44.9 Tobacco user 868805077 Z 72.0 Gastroesop hageal reflux disease 458209500 K21.0 Depressive disorder 3548 9007 F32.89 Dental abscess 274534329 K04.7 [id number] Dejon Woods MD [facility] (Adult Med) [address] [place] [address] [phone] 10/12/2017 10:59:14 10/12/2017 12:56:47 Dental caries 49833205 K02.9 Low back pain 378602836 M54.5 Nausea 391921216 R11.0 [id number] Dejon Woods MD [facility] (Adult Med) [address] [place] [address] [phone] 0 12/13/2017 09:52:42 12/14/2017 09:10:40 Splenomegaly 50445645 R16.1 Benign pro static hyperplasia 022449823 N40.1 Left flank pain 16111579 9 R10.9 Chronic ob structive pulmonary disease 18718546 J44.9 Low back pain 989973762 M54.5 Tobacco user 544561122 Z 72.0 Primary fi bromyalgia syndrome 75696095 M79.7 [id number] Dejon Woods MD [facility] (Adult Med) [address] [place] [address] [id number] 01/12/2018 11:14:21 01/12/2018 12:55:13 Pain in left lower limb 018716581 M79.605 Disorder of stomach 2938 4001 K31.9 Low back pain 973285673 M54.5 Primary fi bromyalgia syndrome 56425458 M79.7 [id number] Dejon Woods MD [facility] (Adult Med) [address] [place] [address] [id number] 03/14/2018 10:10:02 03/16/2018 09:40:13 Dental caries 69431274 K02.9 Low back pain 728851688 M54.5 Primary fi bromyalgia syndrome 09755055 M79.7 Gastroesop hageal reflux disease 119526792 K21.0 Benign pro static hyperplasia 421294232 N40.1 Depressive disorder 3548 9007 F32.89 Tobacco user 943451015 Z 72.0 Chronic ob structive pulmonary disease 05878178 J44.9 Insomnia 724052176 G47.0 0 Chronic pancreatitis 235 772038 K86.1 stent removed [address] Aydin Mcdermott [id number] MD [facility] (Adult Med) [address] [place] [address] [id number] 0 06/14/2018 09:28:09 06/14/2018 10:42:12 Dental caries 38804470 K02.9 Pain of le ft hip joint 3144861569 52617 M25.552 Chronic ob structive pulmonary disease 55293769 J44.9 Tobacco user 040537778 Z 72.0 Low back pain 902613608 M54.5 Gastroesop hageal reflux disease 591413487 K21.0 Benign pro static hyperplasia 218847966 N40.1 Depressive disorder 3548 9007 F32.89 Insomnia 346801732 G47.0 0 Primary fi bromyalgia syndrome 51855184 M79.7 Dental abscess 995707709 K04.7 [id number] MD Tobin Todd (Adult Med) [address] [place] [address] [id number] 0 08/16/2018 13:42:54 08/17/2018 14:22:18 Low back pain 339460648 M54.5 Dental abscess 225117010 K04.7 Dental caries 03644279 K 02.9 Steatotic liver disease 049717869 K76.0 Pain of le ft hip joint 3109711356 81496 M25.552 Gastroesop hageal reflux disease 654207851 K21.0 Depressive disorder 3548 9007 F32.89 Tobacco user 145389554 Z 72.0 Chronic ob structive pulmonary disease 59681020 J44.9 Insomnia 991824994 G47.0 0 Chronic pancreatitis 235 325779 K86.1 stent removed [address] Aydin Mcdermott Primary fi bromyalgia syndrome 07284613 M79.7 Solitary n odule of lung 503991473 R91.1 4 mm left upper lung [id number] Dejon Woods MD [facility] (Adult Med) [address] [place] [address] [id number] 10/12/2018 11:53:36 10/13/2018 12:01:10 Steatotic liver disease 914215439 K76.0 Irritable bowel syndrome with diarrhea 715713402 K58.0 Tobacco user 253345635 Z 72.0 Low back pain 802103478 M54.5 Chronic pancreatitis 235 795823 K86.1 stent removed [address] Aydin Mcdermott Gastroesop hageal reflux disease 557181188 K21.0 Anemia 059519780 D64.9 Screening for malignant neoplasm of prostate 807237759 Z12.5 Chronic prostatitis 1989 5009 N41.1 [id number] Dejon Woods MD [facility] (Adult Med) [address] [place] [address] [id number] 0 12/12/2018 12:56:27 12/12/2018 14:16:40 Tobacco user 414518679 Z72.0 Chronic ob structive pulmonary disease 74060231 J44.9 Low back pain 205397031 M54.5 Myocardial infarction 22 926023 I21.9 Insomnia 113806952 G47.0 0 Gastroesop hageal reflux disease 663271494 K21.0 Steatotic liver disease 038219771 K76.0 Primary fi bromyalgia syndrome 20684523 M79.7 Chronic pancreatitis 235 343607 K86.1 stent removed [address] Aydin Mcdermott [id number] MD [facility] (Adult Med) [address] [place] [address] [id number] 0 01/16/2019 11:45:22 01/17/2019 08:37:31 Myocardial infarction 62574111 I21.9 Gastroesop hageal reflux disease 071935163 K21.0 Pain in le ft lower limb 491659128 M79.605 Low back pain 258131013 M54.5 Steatotic liver disease 697220895 K76.0 Irritable bowel syndrome with diarrhea 262116273 K58.0 Benign pro static hyperplasia 387060033 N40.1 Depressive disorder 3548 9007 F32.89 Chronic ob structive pulmonary disease 07178241 J44.9 Insomnia 605763488 G47.0 0 Chronic pancreatitis 235 805162 K86.1 stent removed [address] Aydin Mcdermott [id number] Dejon Woods MD [facility] (Adult Med) [address] [place] [address] [id number] 0 02/15/2019 10:09:25 02/15/2019 11:45:47 Low back pain 210638844 M54.5 Dental abscess 781080409 K04.7 Pain of le ft hip joint 8957615179 08286 M25.552 Myocardial infarction 22 475747 I21.9 Irritable bowel syndrome with diarrhea 203852860 K58.0 Steatotic liver disease 506883734 K76.0 Gastroesop hageal reflux disease 204021612 K21.0 Depressive disorder 3548 9007 F32.89 Tobacco user 686982148 Z 72.0 Chronic ob structive pulmonary disease 14848762 J44.9 Insomnia 240831229 G47.0 0 Chronic pancreatitis 235 985088 K86.1 stent removed [address] Aydin Mcdermott Primary fi bromyalgia syndrome 02636925 M79.7 [id number] Dejon Woods MD [facility] (Adult Med) [address] [place] [address] [phone] 0 03/20/2019 13:52:01 03/21/2019 08:20:36 Myocardial infarction 69550134 I21.9 Steatotic liver disease 380493540 K76.0 Depressive disorder 3548 9007 F32.89 Chronic ob structive pulmonary disease 65551649 J44.9 Insomnia 038061269 G47.0 0 Chronic pancreatitis 235 456560 K86.1 stent removed [address] Adyin Mcdermott Low back pain 678433885 M54.5 Primary fi bromyalgia syndrome 97977331 M79.7 Tobacco user 059880498 Z 72.0 Irritable bowel syndrome with diarrhea 088875092 K58.0 Gastroesop hageal reflux disease 620972451 K21.0 [id number] Dejon Woods MD [facility] (Adult Med) [address] [place] [address] 85910-781 0 04/20/2019 10:33:33 04/20/2019 11:54:49 Administration of influenza vaccine 06310314 Z23 Low back pain 471514161 M54.5 Pain of le ft hip joint 0475000294 22582 M25.552 Tobacco user 263328675 Z 72.0 [id number] Dejon Woods MD [facility] (Adult Med) [address] [place] [address] [phone] 0 05/24/2019 10:10:05 05/24/2019 11:37:41 Low back pain 740514231 M54.5 Dental abscess 741103260 K04.7 Patient states he is trying to schedule a dentist appointmen t PHI. Chronic prostatitis 1989 5009 N41.1 Patient states he was able to schedule an appointmen t with a specialist for Jun 02, 2019. [id number] Romulo Aaron DO [facility] [address] [place] [address] 06/07/2019 14:41:27 06/09/2019 16:10:50 Chronic hepatitis C 288904531 B18.2 Treated and SVR ? Steatotic liver disease 357913813 K76.0 Chronic pancreatitis 235 600931 K86.1 Based on old data. Not sure if this is an active problem. Gastroesop hageal reflux disease 803970767 K21.9 Has Dyspepsia may be cause of the pain. will try a PPI. Depressive disorder 3549006 F32.9 Primary fi bromyalgia syndrome 31343429 M79.7 Benign pro static hyperplasia 390725290 N40.0 Gastroesop hageal reflux disease without esophagitis 066651507 K21.9 [id number] [facility] [address] [place] [address] 82974-686 0 06/28/2019 09:18:50 06/28/2019 11:17:34 Low back pain 696900845 M54.5 Chronic low back pain 27 5483783 M54.5 Pain of le ft hip joint 8994677887 38012 M25.552 Tobacco user 376036948 Z 72.0 Benign pro static hyperplasia 833395751 N40.1 Chronic ob structive pulmonary disease 61573384 J44.9 Chronic pancreatitis 235 617270 K86.1 stent removed [address] Aydin Mcdermott Depressive disorder 3547 9006 F32.89 Gastroesop hageal reflux disease 479041672 K21.0 Insomnia 150818985 G47.0 0 Irritable bowel syndrome with diarrhea 306237296 K58.0 Myocardial infarction 22 555564 I21.9 Primary fi bromyalgia syndrome 24127113 M79.7 Steatotic liver disease 909633667 K76.0 Splenomegaly 05089792 R1 6.1 [id number] MD [facility] (Adult Med) [address] [place] [address] [phone] 0 08/31/2019 13:48:02 08/31/2019 14:58:43 Low back pain 193988602 M54.5 Gastroesop hageal reflux disease 136925633 K21.0 Benign pro static hyperplasia 671636673 N40.1 Chronic ob structive pulmonary disease 24599747 J44.9 Depressive disorder 3549006 F32.89 Irritable bowel syndrome with diarrhea 740682640 K58.0 Tobacco user 373187884 Z 72.0 Steatotic liver disease 145337675 K76.0 [id number] MD [facility] (Adult Med) [address] [place] [address] 59019-649 0 10/09/2019 12:04:33 10/09/2019 12:53:12 Low back pain 536448175 M54.5 Tobacco user 996488473 Z 72.0 Chronic ob structive pulmonary disease 89611767 J44.9 Chronic pancreatitis 235 407986 K86.1 stent removed [address] Aydin Mcdermott Depressive disorder 3543 9007 F32.89 Gastroesop hageal reflux disease 680336455 K21.0 Insomnia 163399919 G47.0 0 [id number] [facility] (Adult Med) [address] [place] [address] [phone] 0 11/09/2019 08:54:19 11/16/2019 12:18:39 Low back pain 668202653 M54.5 Chronic ob structive pulmonary disease 03331084 J44.9 Upper resp iratory infection 91171268 J06.9 Pain in le ft lower limb 672869268 M79.605 Gastroesop hageal reflux disease 442395218 K21.0 Irritable bowel syndrome with diarrhea 898804148 K58.0 Primary fi bromyalgia syndrome 94897491 M79.7 Steatotic liver disease 460407887 K76.0 Tobacco user 156847876 Z 72.0 [id number] MD [facility] (Adult Med) [address] [place] [address] [phone] 0 12/19/2019 08:36:50 12/20/2019 09:44:54 Chronic obstructive pulmonary disease 56429183 J44.9 Depressive disorder 3541 9007 F32.89 Disorder of stomach 2938 4001 K31.9 Gastroesop hageal reflux disease 871047567 K21.0 Insomnia 212686405 G47.0 0 Low back pain 424278431 M54.5 Primary fi bromyalgia syndrome 51810272 M79.7 Steatotic liver disease 510313200 K76.0 Tobacco user 074091249 Z 72.0 Myocardial infarction 22 242932 I21.9 [id number] MD [facility] (Adult Med) [address] [place] [address] [phone] 0 02/20/2020 09:49:52 02/20/2020 14:41:50 Pain of left hip joint 9797971594 16275 M25.552 both hips bother him but left hip is worse Myocardial infarction 22 889962 I21.9 Anemia 003172729 D64.9 Benign pro static hyperplasia 431056507 N40.1 Chronic ob structive pulmonary disease 06225605 J44.9 Chronic pancreatitis 235 225409 K86.1 stent removed [address] Aydin Mcdermott Depressive disorder 3548 9007 F32.89 Gastroesop hageal reflux disease 620160960 K21.0 Insomnia 126531033 G47.0 0 [id number] Dejon Woods MD [facility] (Adult Med) [address] [place] [address] [phone] 0 03/22/2020 10:31:05 03/22/2020 16:04:08 Pain of left hip joint 6154030597 99892 M25.552 both hips bother him but left hip is worse Chronic ob structive pulmonary disease 87645757 J44.9 Myocardial infarction 22 860333 I21.9 Upper resp iratory infection 16867897 J06.9 Anemia 264631107 D64.9 Steatotic liver disease 303561882 K76.0 Gastroesop hageal reflux disease 182025333 K21.0 Dental caries 95000014 K 02.9 Benign pro static hyperplasia 734446663 N40.1 Tobacco user 376179132 Z 72.0 Insomnia 697585830 G47.0 0 Chronic pancreatitis 235 430019 K86.1 stent removed [address] Aydin Mcdermott Low back pain 991000003 M54.5 Primary fi bromyalgia syndrome 44677576 M79.7 [id number] Dejon Woods MD [facility] (Adult Med) [address] [place] [address] [phone] 0 04/25/2020 08:09:27 04/25/2020 16:19:33 Anemia 521057156 D64.9 Chronic ob structive pulmonary disease 14607400 J44.9 Chronic pancreatitis 235 570744 K86.1 stent removed [address] Aydin Mcdermott Gastroesop hageal reflux disease 190511400 K21.9 Insomnia 901115003 G47.0 0 Low back pain 247475232 M54.5 Primary fi bromyalgia syndrome 51605777 M79.7 Steatotic liver disease 702876884 K76.0 Tobacco user 980381770 Z 72.0 Pain in le ft lower limb 237430357 M79.605 Myocardial infarction 22 292082 I21.9 [id number] Dejon Woods MD [facility] (Adult Med) [address] [place] [address] [phone] 0 05/22/2020 11:24:45 05/23/2020 10:16:41 Upper respiratory infection 62987612 J06.9 Low back pain 081056411 M54.5 Dental caries 17508353 K 02.9 Administra tion of influenza vaccine 06940320 Z23 Chronic hepatitis C 1283 56413 B18.2 Benign pro static hyperplasia 635664050 N40.1 Chronic ob structive pulmonary disease 86783219 J44.9 Depressive disorder 3548 9007 F32.89 Myocardial infarction 22 940856 I21.9 Pain in le ft lower limb 645746778 M79.605 Tobacco user 237512510 Z 72.0 Anemia 010462441 D64.9 Chronic pancreatitis 235 142538 K86.1 stent removed [address] Aydin Mcdermott Gastroesop hageal reflux disease 845818543 K21.9 Insomnia 056128692 G47.0 0 Irritable bowel syndrome with diarrhea 661754779 K58.0 Primary fi bromyalgia syndrome 40522239 M79.7 Steatotic liver disease 195286458 K76.0 [id number] Dejon Woods MD [facility] (Adult Med) [address] [place] [address] [phone] 0 06/19/2020 08:37:45 06/19/2020 12:36:45 Upper respiratory infection 01385051 J06.9 Low back pain 110182162 M54.5 Chronic ob structive pulmonary disease 09413289 J44.9 Dental abscess 597012313 K04.7 Patient states he is trying to schedule a dentist appointmen t PHI. Dental caries 66131478 K 02.9 Gastroesop hageal reflux disease 659067500 K21.9 Insomnia 582838289 G47.0 0 Steatotic liver disease 753657497 K76.0 Tobacco user 027904942 Z 72.0 Anemia 322643626 D64.9 Primary fi bromyalgia syndrome 19428946 M79.7 [id number] [facility] [address] [place] [address] [phone] 0 07/22/2020 08:05:40 07/22/2020 17:35:15 Pain in left lower limb 317879246 M79.605 Dental abscess 746522854 K04.7 Patient states he is trying to schedule a dentist appointmen t PHI. Low back pain 783865315 M54.5 Schizophrenia 46463611 F 20.9 [id number] Dejon Woods MD [facility] (Adult Med) [address] [place] [address] 43422-416 0 08/22/2020 08:12:53 08/22/2020 10:55:02 Injury of left hip region 8995291674 3619833 S79.912A Low back pain 813377311 M54.5 Anemia 607126800 D64.9 Chronic ob structive pulmonary disease 19455024 J44.9 Chronic pancreatitis 235 185197 K86.1 stent removed [address] Aydin Mcdermott Depressive disorder 8918 9007 F32.89 Gastroesop hageal reflux disease 780448059 K21.9 Insomnia 469347754 G47.0 0 Myocardial infarction 22 312925 I21.9 Schizophrenia 49702417 F 20.9 [id number] Dejon Woods MD [facility] (Adult Med) [address] [place] [address] [phone] 0 09/19/2020 08:31:13 09/19/2020 13:02:55 Gastroesophageal reflux disease 220024096 K21.9 Low back pain 836441716 M54.5 Tobacco user 955044437 Z 72.0 Anemia 712707107 D64.9 Benign pro static hyperplasia 766918109 N40.1 Chronic ob structive pulmonary disease 03945929 J44.9 Chronic pancreatitis 235 757077 K86.1 stent removed [address] Aydin Mcdermott Depressive disorder 3548 9007 F32.89 Insomnia 058649361 G47.0 0 Myocardial infarction 22 106710 I21.9 Schizophrenia 71354701 F 20.9 Steatotic liver disease 999637675 K76.0 [id number] MD [facility] (Adult Med) [address] [place] [address] [phone] 0 10/17/2020 10:17:07 10/17/2020 15:31:24 Low back pain 317029326 M54.5 Anemia 019481641 D64.9 Chronic ob structive pulmonary disease 09983398 J44.9 Chronic pancreatitis 235 321467 K86.1 stent removed [address] Aydin Mcdermott Depressive disorder 3548 9007 F32.89 Gastroesop hageal reflux disease 297583631 K21.9 Insomnia 525084691 G47.0 0 Schizophrenia 72302912 F 20.9 Steatotic liver disease 377190658 K76.0 Tobacco user 530444199 Z 72.0 [id number] MD [facility] (Adult Med) [address] [place] [address] 25339-024 0 11/18/2020 08:25:24 11/18/2020 12:43:40 Pain in left lower limb 861891089 M79.605 Dental abscess 074171831 K04.7 [facility] Myocardial infarction 22 776346 I21.9 Anemia 373291454 D64.9 Chronic ob structive pulmonary disease 86886724 J44.9 Chronic pancreatitis 235 927916 K86.1 stent removed [address] Aydin Mcdermott Depressive disorder 3548 9007 F32.89 Gastroesop hageal reflux disease 299454577 K21.9 Insomnia 647908405 G47.0 0 Irritable bowel syndrome with diarrhea 421986903 K58.0 Primary fi bromyalgia syndrome 49263207 M79.7 Schizophrenia 60357054 F 20.9 Steatotic liver disease 756556935 K76.0 Tobacco user 959077089 Z 72.0 [id number] MD [facility] (Adult Med) [address] [place] [address] [phone] 0 12/18/2020 09:37:00 12/18/2020 13:08:55 Low back pain 063465082 M54.5 Anemia 394529464 D64.9 Benign pro static hyperplasia 756572051 N40.1 Chronic ob structive pulmonary disease 42006674 J44.9 Chronic pancreatitis 235 725924 K86.1 stent removed [address] Aydin Mcdermott Depressive disorder 3548 9007 F32.89 Gastroesop hageal reflux disease 038950742 K21.9 Insomnia 530622546 G47.0 0 Myocardial infarction 22 834772 I21.9 Schizophrenia 92978626 F 20.9 Primary fi bromyalgia syndrome 42477402 M79.7 Steatotic liver disease 488423524 K76.0 Tobacco user 283538195 Z 72.0 [id number] MD [facility] (Adult Med) [address] [place] [address] [phone] 0 01/20/2021 09:11:38 01/20/2021 12:55:35 Dental abscess 624940418 K04.7 Patient states he is trying to schedule a dentist appointmen t PHI. Primary fi bromyalgia syndrome 45207571 M79.7 Hyperlipidemia 49704747 E78.5 Screening for malignant neoplasm of prostate 644021939 Z12.5 Chronic pancreatitis 235 408886 K86.1 stent removed [address] Aydin Mcdermott Steatotic liver disease 949318261 K76.0 Tobacco user 660425558 Z 72.0 Gastroesop hageal reflux disease 896903558 K21.9 Dental caries 14782655 K 02.9 Depressive disorder 3548 9007 F32.89 Chronic ob structive pulmonary disease 93952366 J44.9 [id number] [facility] (Adult Med) [address] [place] [address] 86029-791 0 02/24/2021 13:44:51 02/24/2021 17:12:40 Chronic obstructive pulmonary disease 00688656 J44.9 Low back pain 751691227 M54.5 Dental abscess 826504064 K04.7 Patient states he is trying to schedule a dentist appointmen t PHI. Gastroesop hageal reflux disease 490312802 K21.9 Hyperlipidemia 67501671 E78.5 Insomnia 502784883 G47.0 0 Myocardial infarction 22 705546 I21.9 Primary fi bromyalgia syndrome 21078605 M79.7 Schizophrenia 86759232 F 20.9 Steatotic liver disease 277594301 K76.0 Tobacco user 948919432 Z 72.0 [id number] MD [facility] (Adult Med) [address] [place] [address] [phone] 0 04/29/2021 08:01:07 04/29/2021 14:33:21 Primary fibromyalgia syndrome 36949104 M79.7 Chronic ob structive pulmonary disease 48648338 J44.9 Chronic pancreatitis 235 072183 K86.1 stent removed [address] Aydin Mcdermott Dental caries 86674963 K 02.9 Depressive disorder 3548 9007 F32.89 Gastroesop hageal reflux disease 945998688 K21.9 Hyperlipidemia 27701247 E78.5 Insomnia 684239732 G47.0 0 Irritable bowel syndrome with diarrhea 487666257 K58.0 Myocardial infarction 22 209291 I21.9 Schizophrenia 03336477 F 20.9 Steatotic liver disease 124909438 K76.0 Tobacco user 200147002 Z 72.0 [id number] MD [facility] (Adult Med) [address] [place] [address] [phone] 0 05/16/2021 12:07:58 05/16/2021 15:19:10 Administration of influenza vaccine 26844937 Z23 [id number] MD [facility] (Adult Med) [address] [place] [address] [phone] 0 06/10/2021 09:27:23 06/10/2021 13:57:32 Chronic pancreatitis 727861196 K86.1 stent removed [address] Aydin Mcdermott Dental abscess 259880515 K04.7 Patient states he is trying to schedule a dentist appointmen t PHI. Hyperlipidemia 04879159 E78.5 Insomnia 643790953 G47.0 0 Low back pain 564596420 M54.51 Schizophrenia 99975924 F 20.9 Steatotic liver disease 014752521 K76.0 Tobacco user 104206351 Z 72.0 [id number] MD [facility] (Adult Med) [address] [place] [address] [phone] 0 07/22/2021 14:41:37 07/23/2021 13:33:07 Chronic pancreatitis 465438072 K86.1 stent removed [address] Aydin Mcdermott Primary fi bromyalgia syndrome 92262667 M79.7 Steatotic liver disease 796073148 K76.0 Screening for malignant neoplasm of prostate 130510542 Z12.5 Chronic ob structive pulmonary disease 98931648 J44.9 Depressive disorder 3548 9007 F32.89 Gastroesop hageal reflux disease 120958150 K21.9 Hyperlipidemia 85040864 E78.5 Insomnia 147026284 G47.0 0 Myocardial infarction 22 199592 I21.9 Schizophrenia 77791443 F 20.9 [id number] MD [facility] (Adult Med) [address] [place] [address] [phone] 0 08/20/2021 10:19:55 08/21/2021 13:38:49 Chronic obstructive pulmonary disease 50512813 J44.9 Chronic pancreatitis 235 664592 K86.1 stent removed [address] Aydin Mcdermott Dental abscess 391946469 K04.7 Patient states [facility]. Anemia 135631028 D64.9 Dental caries 06669082 K 02.9 Depressive disorder 3548 9007 F32.89 Gastroesop hageal reflux disease 159475989 K21.9 Hyperlipidemia 45191427 E78.5 Insomnia 003548661 G47.0 0 Myocardial infarction 22 478367 I21.9 Primary fi bromyalgia syndrome 90533063 M79.7 Schizophrenia 58797510 F 20.9 Steatotic liver disease 959023735 K76.0 Tobacco user 691661111 Z 72.0 [id number] MD [facility] (Adult Med) [address] [place] [address] 82168-214 0 10/02/2021 15:44:32 10/06/2021 09:56:37 Myocardial infarction 81286248 I21.9 Pain of le ft hip joint 3801770340 42494 M25.552 both hips bother him but left hip is worse Anemia 809457676 D64.9 Benign pro static hyperplasia 125096137 N40.1 Chronic ob structive pulmonary disease 52431574 J44.9 Chronic pancreatitis 235 603082 K86.1 stent removed [address] Aydin Mcdermott Depressive disorder 3548 9007 F32.89 Gastroesop hageal reflux disease 198416309 K21.9 Hyperlipidemia 57354346 E78.5 Insomnia 371161879 G47.0 0 Low back pain 002603556 M54.51 Primary fi bromyalgia syndrome 24385626 M79.7 Schizophrenia 57032876 F 20.9 Steatotic liver disease 155514211 K76.0 Tobacco user 958514137 Z 72.0 [id number] MD [facility] (Adult Med) [address] [place] [address] 74247-548 0 10/31/2021 13:45:13 10/31/2021 14:39:19 Injury of left shoulder 0472820148 9236138 S49.92XA Tobacco user 201010099 Z 72.0 Low back pain 422550359 M54.51 History of hematuria 161 494709 Z87.448 Benign pro static hyperplasia 735919870 N40.1 Anemia 068861327 D64.9 Chronic ob structive pulmonary disease 41322317 J44.9 Chronic prostatitis 1990 5009 N41.1 Patient states he was able to schedule an appointmen t with a specialist for Jun 02, 2019. Depressive disorder 3548 9007 F32.89 Gastroesop hageal reflux disease 757214952 K21.9 Hyperlipidemia 12687502 E78.5 Insomnia 506652945 G47.0 0 Myocardial infarction 22 092727 I21.9 Primary fi bromyalgia syndrome 66864340 M79.7 Schizophrenia 97421474 F 20.9 Steatotic liver disease 557070009 K76.0 Splenomegaly 48186097 R1 6.1 [id number] MD [facility] (Adult Med) [address] [place] [address] [phone] 0 11/28/2021 11:15:35 11/28/2021 11:59:33 Smoker 54255850 F17.200 Smokes 1 kieran /day for about 40 years, just starts nicotine patch. He agreed for LDCT. Lipid-rich atherosclerosis of coronary artery 1574230713 30348 I25.83 Has stents put in . Pain of le ft shoulder joint 9469831088 2795095 M25.512 Negative x ray. copy provided to patient. Chronic low back pain 27 1312943 M54.50 He used to go to pain management with epidural injection for about 7 years, but now the pain clinic won't accept his health insurance. Will refer to different pain clinic where will accept his insurance. He agreed, Also wants to refill his HYROCODONE .. Administra tion of diphtheria, pertussis, and tetanus vaccine 465714717 Z23 [id number] Dejon Woods MD [facility] (Adult Med) [address] [place] [address] [phone] 0 01/06/2022 11:16:53 01/08/2022 10:09:47 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 550339517 S44.90XA Degenerati on of lumbar intervertebral disc 25279827 M51.36 Primary fi bromyalgia syndrome 68272498 M79.7 [id number] Dejon Woods MD [facility] (Adult Med) [address] [place] [address] [phone] 0 02/05/2022 10:40:49 02/06/2022 12:39:21 Dental abscess 662879088 K04.7 Patient states he is trying to schedule a dentist appointmen t [facility]I. Chronic pancreatitis 235 712581 K86.1 stent removed [address] Aydin Mcdermott Benign pro static hyperplasia 678756450 N40.1 Chronic ob structive pulmonary disease 75646190 J44.9 Degenerati on of lumbar intervertebral disc 10247986 M51.36 Full thick ness rotator cuff tear 976827988 M75.120 supraspina tus tendon Gastroesop hageal reflux disease 483733854 K21.9 Hyperlipidemia 79811943 E78.5 Injury of left shoulder 0678039993 9837890 S49.92XA Insomnia 689823564 G47.0 0 Myocardial infarction 22 119852 I21.9 Primary fi bromyalgia syndrome 67585556 M79.7 Schizophrenia 74934748 F 20.9 Steatotic liver disease 076647052 K76.0 [id number] MD [facility] (Adult Med) [address] [place] [address] [phone] 0 03/12/2022 10:33:40 03/13/2022 12:50:28 Hyperlipidemia 22514135 E78.5 Depressive disorder 3548 9007 F32.89 Degenerati on of lumbar intervertebral disc 03506332 M51.36 Chronic ob structive pulmonary disease 23532103 J44.9 Disorder d ue to and following injury of nerve of shoulder 096998864 S44.90XA Full thick ness rotator cuff tear 807259766 M75.120 supraspina tus tendon Gastroesop hageal reflux disease 282523459 K21.9 Insomnia 402696891 G47.0 0 Myocardial infarction 22 108506 I21.9 Tobacco user 520969379 Z 72.0 Steatotic liver disease 315432974 K76.0 Primary fi bromyalgia syndrome 60425803 M79.7 [id number] Dejon Woods MD [facility] (Adult Med) [address] [place] [address] [phone] 0 04/09/2022 14:23:20 04/10/2022 09:59:47 Chronic obstructive pulmonary disease 59249984 J44.9 Chronic pancreatitis 235 047913 K86.1 stent removed [address] Aydin Mcdermott Degenerati on of lumbar intervertebral disc 18686477 M51.36 Depressive disorder 3548 9007 F32.89 Hyperlipidemia 09255642 E78.5 Tobacco user 742863297 Z 72.0 Infection of tooth 41423 8007 K04.7 Gastroesop hageal reflux disease 421569602 K21.9 Injury of left shoulder 9109731574 3909937 S49.92XA Benign pro static hyperplasia 828615520 N40.1 Disorder d ue to and following injury of nerve of shoulder 872869666 S44.90XA Full thick ness rotator cuff tear 365974187 M75.120 supraspina tus tendon Insomnia 362414471 G47.0 0 Irritable bowel syndrome with diarrhea 234751770 K58.0 Myocardial infarction 22 428283 I21.9 Primary fi bromyalgia syndrome 10171790 M79.7 Schizophrenia 74323737 F 20.9 Steatotic liver disease 738846853 K76.0 [id number] Dejon Woods MD [facility] (Adult Med) [address] [place] [address] [phone] 0 05/12/2022 15:57:25 05/13/2022 13:29:49 Tobacco user 535998233 Z87.891 Injury of left shoulder 2713095343 2675806 S49.92XA Degenerati on of lumbar intervertebral disc 20144664 M51.36 Chronic ob structive pulmonary disease 29968989 J44.9 Chronic pancreatitis 235 957756 K86.1 stent removed [address] Aydin Mcdermott Full thick ness rotator cuff tear 644767883 M75.120 supraspina tus tendon Gastroesop hageal reflux disease 731784417 K21.9 Hyperlipidemia 89520663 E78.5 Insomnia 768227712 G47.0 0 Irritable bowel syndrome with diarrhea 361870195 K58.0 Myocardial infarction 22 151541 I21.9 Primary fi bromyalgia syndrome 59335912 M79.7 Pain of le ft hip joint 6052928105 54786 M25.552 both hips bother him but left hip is worse Schizophrenia 66164916 F 20.9 Splenomegaly 13979096 R1 6.1 Steatotic liver disease 199649529 K76.0 [id number] Seymour Cunningham MD [facility] (Adult Med) [address] [place] [address] [phone] 0 06/09/2022 14:41:27 06/12/2022 11:52:54 Hyperglycemia 93423553 R73.9 Primary fi bromyalgia syndrome 20798081 M79.7 Low back pain 006383248 M54.51 Coronary arteriosclerosis 63741183 I25.10 [id number] Seymour Cunningham MD [facility] (Adult Med) [address] [place] [address] [phone] 0 10/28/2022 15:02:46 10/29/2022 15:18:39 Chronic obstructive pulmonary disease 60791802 J44.9 Restart Symbicort. Coronary atherosclerosis 152240532 I25.84 F/U cardiology Dental abscess 232380401 K04.7 Gastroesop hageal reflux disease 593007630 K21.9 Primary fi bromyalgia syndrome 54005574 M79.7 Tobacco de pendence syndrome 20830054 F17.200 Screening for malignant neoplasm of prostate 469262474 Z12.5 Hyperglycemia 32789141 R 73.9 Hyperlipidemia 32309362 E78.5 Low back pain 213848946 M54.51 Steatotic liver disease 750114038 K76.0 [id number] MD [facility] (Adult Med) [address] [place] [address] 90611-860 0 02/08/2024 15:38:31 02/09/2024 16:14:06 Gastroesophageal reflux disease 409311587 K21.9 Depressive disorder 3548 9007 F32.89 Low back pain 084871836 M54.51 Advised pt to d/c nsaid use Insomnia 206542854 G47.0 0 [id number] MD [facility] (Adult Med) [address] [place] [address] [phone] 0 03/30/2024 15:59:53 03/30/2024 17:02:01 Injury of finger 44575854 S69.90XA Sutures removed in office Anxiety 97679232 F41.9 Medication monitoring 39 5863648 Z51.81 [id number] MD [facility] (Adult Med) [address] [place] [address] [phone] 0 12/28/2024 16:29:31 12/29/2024 13:02:15 Depressive disorder 72451422 F32.89 Low back pain 627489337 M54.51 Gastroesop hageal reflux disease 821895521 K21.9 Schizophrenia [id number] F 20.9 Insomnia [id number] G47.0 0 Tobacco de pendence syndrome 44099103 F17.200 Rib pain 282182710 R07.8 1 [id number] Chronic ob structive pulmonary disease [id number] J44.9 Restart Symbicort. [id number] MD Tobin Santillan (Adult Med) [address] [place] [phone] 04/05/2025 13:37:38 04/10/2025 03:47:35 Health Concerns Section Related Observation LastModified by Organization Detai ls LastModified Time None Recorded Concern Status LastModified by Organization Details LastModified Time None Recorded Advance Directives Directive N: Payers Insurance Date Sequence Insurance Name Policy Number Policy Clayton Covered Member ID Clayton Member ID Guarantor Name 04/05/2025 1 [facility] ON OR AFTER 01/23/21 (MEDICAID REPLACEMENT - HMO) Boris Colin [id number] Boris Colin 04/05/2025 1 [facility] - DOS PRIOR TO 2021 (MEDICAID REPLACEMENT - HMO) Boris Colin [id number] Boris Colin Notes Date Note Type Note Provider Name and Address Organization Details Recorded Time 10/28/2022 text/html Has experienced increased dyspnea since without his inhaler. Has swelling of his gums. He continues to smoke Seymour Cunningham MD Attn: Accounting,[address] [facility], [place], [address], [facility] 10/28/2022 15:42:10 02/08/2024 text/html Concerned about increased anxiety and mood swings. He ran out of citalopram. Legs are numb and weak. He has been losing strength in his legs and has been falling. He has low back pain. He has intermittent SOB. He does not sleep well Seymour Cunningham MD Attn: Accounting, [facility], [place], [address], [facility] 02/08/2024 16:43:37 03/30/2024 text/html Here for removal of sutures from right middle finger. Would like to restart antianxiety meds Seymour Cunningham MD Attn: Accounting, [address] [facility], [place], [address], [facility] 03/30/2024 17:00:13 12/28/2024 text/html Here for med refills. Is concerned about a painful swollen area in left upper abdomen. He sits around and cries a lot. His appetite is poor. Seymour Cunningham MD Attn: Accounting,[address] [facility], [place], [address], [facility] 12/28/2024 17:55:37 04/05/2025 text/html ROS as noted in the [...] stepped out and came in with a machine maintenance, Nettie Rich MA who was with me [...] records. Mckenzie Torres MD Attn: Accounting,[address] [place], [address], [place] [facility] 04/05/2025 14:25:06
--- OUTSIDE RECORDS SUMMARY | 2025-06-20 10:54 | XMS_ITS | Clinical Summary ---
Author Organization [facility] Address [address] [place] [address] Care Team Providers Care Front End Software Developer Name Role Phone Reinier Mar Primary Care Provider + Allergies No known active allergies Medications citalopram 20 MG tablet TK 1 T PO D 0 07/28/2017 Active ibuprofen 800 MG tablet TK 1 T PO TID PRN. WF 3 07/07/2017 Active OLANZapine 5 MG tablet TK 1 T PO HS 0 07/28/2017 Active Pancrelipase, Iks-Vntp-Gnoj, (CREON) 93502 units CAPSULE ENTERIC COATED PARTICLES Take 36,000 Units by mouth. 09/04/2016 Active ranitidine 150 MG tablet Take 300 mg by mouth. 2016 Active hydrocodone-acet aminophen 5-325 MG tablet TK 1 T PO BID PRN. MUST LAST 30 DAYS 0 12/15/2017 Active cyclobenzaprine 10 MG tablet Take 1 tablet (10 mg total) by mouth 3 (three) times daily as needed for Muscle Spasms. 90 tablet 04/14/2018 Active diazepam 5 MG tablet Take 10 mg by mouth every 8 (eight) hours as needed. 12/10/2017 Active Active Problems Problem Noted Date Diagnosed Date SI (sacroiliac) joint inflammation 04/14/2018 Lumbar radiculopathy 08/02/2017 Myofascial pain 08/02/2017 Social History Tobacco Use Types Packs/Day Years Used Date Smoking Tobacco: Every Day Cigarettes 2 48 Smokeless Tobacco: Never Tobacco Cessation:Ready to Q uit: Yes; Counseling Given: Yes Comments:Verbalized understanding of benefits of smoking cessation Alcohol Use Standard Drinks/Week Comments No 0 (1 standard drink = 0.6 oz pur e alcohol) Sex and Gender Information Value Date Recorded Sex Assigned at Not on file Legal Sex Male 5:15 PM CDT Gender Identity Not on file Sexual Orientation Not on file Last Filed Vital Signs Vital Sign Reading Time Taken Comments Blood Pressure 156/93 11/07/2018 1:08 PM CDT Pulse 74 11/07/2018 1:08 PM CDT Temperature 36.3 C (97.4 F) 11/07/2018 12:30 PM CDT Respiratory Rate 18 11/07/2018 1:08 PM CDT Oxygen Saturation 98% 11/07/2018 1:08 PM CDT Inhaled Oxygen Concentration - - Weight 88.5 kg (195 lb) 11/07/2018 12:30 PM CDT Height 190.5 cm (6' 3) 11/07/2018 12:30 PM CDT Body Mass Index 24.37 11/07/2018 12:30 PM CDT Plan of Treatment Health Maintenance Due Date Last Done Comments Colorectal Cancer Screening Colonoscopy (10 Years) 1960 Annual Physical 10/06/1963 Hepatitis C 1978 DTaP, Tdap and Td Vaccines ( 1 - Tdap) 10/06/1979 Pneumococcal Vaccine: 50+ Ye ars (1 of 2 - PCV) 10/06/1979 Zoster Vaccines (1 of 2) 2010 COVID-19 Vaccine ( - 2024-2 6 season) 2025 Influenza Adult (#1) 2025 RSV Immunization or 60+ Years (1 - 1-dose 75+ series) 10/06/2035 Hepatitis A Vaccines Aged Out No long er eligible based on patient's age to complete this topic Meningococcal B Vaccine Aged Out No l onger eligible based on patient's age to complete this topic Meningococcal Vaccine Aged Out No shannon juwan eligible based on patient's age to complete this topic RSV Immunizations Under 20 Months Aged Out No longer eligible based on patient's age to complete this topic Insurance MARILUZ Care Teams Front End Software Developer Relationship Specialty Start Date End Date Reinier Mar PA PCP - General PHYSICIAN MAINTENANCE DEPARTMENT MANAGER 03/01/18
--- OUTSIDE RECORDS SUMMARY | 2025-06-20 10:54 | XMS_ITS | Clinical Summary ---
Author Organization [facility] Address [address] [place] [address] Phone Care Team Providers Care Filtration Plant Operator Name Role Phone FREEMAN JIN MD [...] On 0 10:47AM By Carla CARPENTER ; [facility] Citalopram Hydrobromide 20 MG Oral Tablet 04/05/2020 Provider: Diagnosis: Last Documented On 0 10:47AM By Carla CARPENTER ; [facility] Clopidogrel Bisulfate 75 MG Oral Tablet 04/05/2020 P rovider: Diagnosis: Last Documented On 0 10:47AM By Carla CARPENTER ; [facility] Carvedilol 3.125 MG Oral Tablet 04/05/2020 Provider: Diagnosis: Last Documented On 0 10:47AM By Carla CARPENTER ; [facility] Atorvastatin Calcium 10 MG Oral Tablet 04/05/2020 Pr ovider: Diagnosis: Last Documented On 0 10:48AM By Carla CARPENTER ; [facility] Isosorbide Mononitrate ER 30 MG Oral Tablet Extended Release 24 Hour 04/05/2020 Provider: Diagnosis: Last Documented On 0 10:48AM By Carla CARPENTER ; [facility] Nitroglycerin 0.4 MG Sublingual Tablet Sublingual 03/26 Provider: Diagnosis: Last Documented On 0 10:48AM By Carla CARPENTER ; [facility] Vitamin B12 TR 2000 MCG Oral Tablet Extended Release 0 04/05/2020 Provider: Diagnosis: Last Documented On 0 10:49AM By Carla CARPENTER ; [facility] HYDROcodone-Acetaminophen 5-325 MG Oral Tablet 020 Provider: Diagnosis: Last Documented On 0 10:55AM By Carla CARPENTER ; [facility] diazePAM 10 MG Oral Tablet 04/05/2020 Provider: Diagnosis: Last Documented On 0 11:11AM By Carla CARPENTER ; [facility] Medications Administered Includes: Administered Medications from [...] Time Check-Out Time Diagnosis NO SHOW EZRA SEXTON-TERESITA 05/30/2020 12:07PM 11:59PM Insurance Includes: Active Insurance Policies Plan Name Member ID Group # Subscriber Relationship Effect katherine Dates - [facility] [id number] ELLE BIANCHI Self Clinical Notes Includes: Clinical Notes from this encounter No Clinical Notes Recorded
--- NOTE | 2025-06-20 11:01 | PC.NURSE ---
cardiopulmonary technician and eeg tech approached this RN and stated the pt refused to get CT scan due to PTSD and states he needs a sedative. notified YVONNE Zacarias. states she will speak to EDP about it. pt waving this RN down to room to take his IV out. pt states just take this out Im going to a different hospital, you guys are just leaving me in this room to . This RN explained to pt that is not the case and that we are working on getting him medications to help calm him down so he can get his scans done. pt states it's taking too long and demanding for this RN to removed IV. Explained to pt the importance of staying in the hospital. pt refusing any kind education and is yelling at this RN to take his IV out so he can leave. removed pt's IV with catheter intact. pt ambulated to waiting area without difficulty.
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
== END 2025-06-20 11:17 | disposition left against medical advice (07) ==
PROVIDERS: Emergency Medicine
DX: M54.2 Cervicalgia (principal); R07.9 Chest pain, unspecified; R10.32 Left lower quadrant pain; I25.10 Atherosclerotic heart disease of native coronary artery without angina pectoris; I10 Essential (primary) hypertension; J43.9 Emphysema, unspecified; E78.5 Hyperlipidemia, unspecified; K21.9 Gastro-esophageal reflux disease without esophagitis; K86.89 Other specified diseases of pancreas; M79.7 Fibromyalgia; F32.9 Major depressive disorder, single episode, unspecified; F20.9 Schizophrenia, unspecified; F17.210 Nicotine dependence, cigarettes, uncomplicated; Z95.5 Presence of coronary angioplasty implant and graft; Z86.19 Personal history of other infectious and parasitic diseases; Z96.1 Presence of intraocular lens; Z98.42 Cataract extraction status, left eye; Z98.41 Cataract extraction status, right eye; Z90.49 Acquired absence of other specified parts of digestive tract; Z79.02 Long term (current) use of antithrombotics/antiplatelets; Z79.899 Other long term (current) drug therapy; R94.31 Abnormal electrocardiogram [ECG] [EKG]
CPT/HCPCS: 36415; 71046; 80053; 80307; 81003; 84484; 85025; 93005; 99284

== ENCOUNTER 2025-07-18 11:07 | Outpatient (CLI) | payer OTHER, SELFPAY ==
--- NOTE | ~2025-07-18 | CT_ITS ---
EXAMINATION:CT lung screening DATE: 07/18/2025 11:16 INDICATION: Personal history of nicotine dependence. TECHNIQUE: Computed tomography (CT) of the chest was performed without intravenous contrast. Automated exposure control and iterative reconstruction technique were employed. The dose-length product (DLP) was 107.65 mGy-cm. COMPARISON: Chest CT 11/13/15 FINDINGS: There is mild emphysema. There is mild atelectasis bilaterally. There is a stable 5 mm nodule at minor fissure. There is a stable 4 mm nodule at minor fissure. Calcified right lung nodules are consistent with old granulomatous disease. No pleural effusion. The heart size is normal. There are coronary artery calcifications. No pericardial effusion. There is mild bilateral gynecomastia. There are changes of cholecystectomy. There is severe cervical spondylosis and mild thoracic spondylosis. IMPRESSION: 1. Lung-RADS category 2: Benign appearance or behavior. Continue annual screening with noncontrast low-dose chest CT in 12 months. Reviewed, dictated and finalized at location E. [facility] SPECIALIST IMPRESSION: 1. Lung-RADS category 2: Benign appearance or behavior. Continue annual screeni ng with noncontrast low-dose chest CT in 12 months.
--- OUTSIDE RECORDS SUMMARY | 2025-07-18 10:51 | XMS_ITS | Clinical Summary ---
Author Organization [facility] Address [address] [place] [address] Phone Care Team Providers Care Funeral Service Manager Name Role Phone FREEMAN JIN MD [...] On 0 10:47AM By Carla CARPENTER ; [facility] Citalopram Hydrobromide 20 MG Oral Tablet 04/05/2020 Provider: Diagnosis: Last Documented On 0 10:47AM By Carla CARPENTER ; [facility] Clopidogrel Bisulfate 75 MG Oral Tablet 04/05/2020 P rovider: Diagnosis: Last Documented On 0 10:47AM By Carla CARPENTER ; [facility] Carvedilol 3.125 MG Oral Tablet 04/05/2020 Provider: Diagnosis: Last Documented On 0 10:47AM By Carla CARPENTER ; [facility] Atorvastatin Calcium 10 MG Oral Tablet 04/05/2020 Pr ovider: Diagnosis: Last Documented On 0 10:48AM By Carla CARPENTER ; [facility] Isosorbide Mononitrate ER 30 MG Oral Tablet Extended Release 24 Hour 04/05/2020 Provider: Diagnosis: Last Documented On 0 10:48AM By Carla CARPENTER ; [facility] Nitroglycerin 0.4 MG Sublingual Tablet Sublingual 03/26 Provider: Diagnosis: Last Documented On 0 10:48AM By Carla CARPENTER ; [facility] Vitamin B12 TR 2000 MCG Oral Tablet Extended Release 0 04/05/2020 Provider: Diagnosis: Last Documented On 0 10:49AM By Carla CARPENTER ; [facility] HYDROcodone-Acetaminophen 5-325 MG Oral Tablet 020 Provider: Diagnosis: Last Documented On 0 10:55AM By Carla CARPENTER ; [facility] diazePAM 10 MG Oral Tablet 04/05/2020 Provider: Diagnosis: Last Documented On 0 11:11AM By Carla CARPENTER ; [facility] Medications Administered Includes: Administered Medications from [...] Subscriber Relationship Effect katherine Dates - [facility] [id number] ELLE BIANCHI Self Clinical Notes Includes: Clinical Notes from this encounter No Clinical Notes Recorded
--- OUTSIDE RECORDS SUMMARY | 2025-07-18 10:51 | XMS_ITS | Encounter Summary ---
Author Organization [facility] Address [facility] [place] [address] Care Team Providers Care Plasma Processor Name Role Phone Wilver Ledesma MD Primary Care Provider Unavailable Reinier Mar Primary Care Provider + None, Provider Primary Care Provider Unavaila ble Reason for Referral * Surgical (Routine) - Closed Specialty Diagnoses / Procedures Referred By Contac t Referred To Contact Diagnoses Lumbar radiculopathy Procedures Case request operating room: INJECTION EPIDURAL LUMBAR INTERLAMINAR L4-5 Monika Interiano NP [address] [facility] [address] [place] [address] Phone: tel: [phone] fax: Referral ID Status Reason Start Date Expiration Date Visits Re quested Visits Authorized [id number] Closed 09/28/2017 10/29/2018 1 1 GER OFFICE Encounter Details Date Type Department Care Team (Late st Contact Info) Description 09/28/2017 Prep for Procedure [facility] [place] [address] [phone] Monika Interiano NP [address] [facility] [address] [place] [phone] (Work) Social History Tobacco Use Types Packs/Day Years Used Date Smoking Tobacco: Every Day Cigarettes 2 48 Smokeless Tobacco: Never Alcohol Use Standard Drinks/Week Comments No 0 (1 standard drink = 0.6 oz pur e alcohol) Sex and Gender Information Value Date Recorded Sex Assigned at Male 07/01/2025 7:06 AM MANAGER OFFICE Legal Sex Male 5:15 PM CDT Gender [...] unspecified documented in this encounter Care Teams Plasma Processor Relationship Specialty Start Date End Date Wilver Ledesma MD PCP - General 02/11/17 10/06/17 Reinier Mar PA PCP - General PHYSICIAN SOFTWARE SUPPORT ENGINEER 03/01/18 06/30/25 None, Provider, PCP - General UNKNOWN PHYSICIAN SPECIALTY 07/01/25 documented as of this encounter
--- OUTSIDE RECORDS SUMMARY | 2025-07-18 10:51 | XMS_ITS | Clinical Summary ---
Author Organization [facility] Address [address] [place] [address] Phone Care Team Providers Care Picker Operator Name Role Phone FREEMAN JIN MD [...] On 0 10:47AM By Carla CARPENTER ; [facility] Citalopram Hydrobromide 20 MG Oral Tablet 04/05/2020 Provider: Diagnosis: Last Documented On 0 10:47AM By Carla CARPENTER ; [facility] Clopidogrel Bisulfate 75 MG Oral Tablet 04/05/2020 P rovider: Diagnosis: Last Documented On 0 10:47AM By Carla CARPENTER ; [facility] Carvedilol 3.125 MG Oral Tablet 04/05/2020 Provider: Diagnosis: Last Documented On 0 10:47AM By Carla CARPENTER ; [facility] Atorvastatin Calcium 10 MG Oral Tablet 04/05/2020 Pr ovider: Diagnosis: Last Documented On 0 10:48AM By Carla CARPENTER ; [facility] Isosorbide Mononitrate ER 30 MG Oral Tablet Extended Release 24 Hour 04/05/2020 Provider: Diagnosis: Last Documented On 0 10:48AM By Carla CARPENTER ; [facility] Nitroglycerin 0.4 MG Sublingual Tablet Sublingual 03/26 Provider: Diagnosis: Last Documented On 0 10:48AM By Carla CARPENTER ; [facility] Vitamin B12 TR 2000 MCG Oral Tablet Extended Release 0 04/05/2020 Provider: Diagnosis: Last Documented On 0 10:49AM By Carla CARPENTER ; [facility] HYDROcodone-Acetaminophen 5-325 MG Oral Tablet 020 Provider: Diagnosis: Last Documented On 0 10:55AM By Carla CARPENTER ; [facility] diazePAM 10 MG Oral Tablet 04/05/2020 Provider: Diagnosis: Last Documented On 0 11:11AM By Carla CARPENTER ; [facility] Medications Administered Includes: Administered Medications from [...] Effect katherine Dates - [facility] [id number] ELLE BIANCHI Self Clinical Notes Includes: Clinical Notes from this encounter No Clinical Notes Recorded
--- OUTSIDE RECORDS SUMMARY | 2025-07-18 10:51 | XMS_ITS | Clinical Summary ---
Author Organization [facility] Address [address] [place] [address] Phone Care Team Providers Care Ladle Liner Helper Name Role Phone FREEMAN JIN MD Primary [...] handout Last Documented On 0 10:46AM ; [facility] Assessments Includes: Assessments from this encounter Findings - Lumbar radiculopathy [M54.16 - Radiculopathy, lumbar region] - Last Documented On 04/12/2020 9:32AM ; [facility] - Chronic pain syndrome [G89.4 - Chronic pain syndrome] - Last Documented On 04/12/2020 9:32AM ; [facility] - [facility] use of opiate analgesic [Z79.891 - [facility] (current) use of opiate analgesic] - Last Documented On 04/12/2020 9:32AM ; [facility] Instructions Includes: Instructions from this encounter Instructions to patient Intervention and counseling on cessation of tobacco use : Patient recieved smoking cessation handout Last Documented On 0 10:46AM ; [facility] Medical Equipment - Implanted Devices Includes: Current Devices No Medical Equipment Recorded Medications Includes: Medications discussed during this encounter and other current Medications Discontinued / Stopped on this date on 04/05/2020 diazePAM 10 MG Oral Tablet Provider: Diagnosis: Last Documented On 0 11:11AM By Carla CARPENTER ; [facility] Current Medications (continue as prescribed) Famotidine 20 MG Oral Tablet 04/05/2020 Provider: Diagnosis: Last Documented On 0 10:47AM By Carla CARPENTER ; [facility] Citalopram Hydrobromide 20 MG Oral Tablet 04/05/2020 Provider: Diagnosis: Last Documented On 0 10:47AM By Carla CARPENTER ; [facility] Clopidogrel Bisulfate 75 MG Oral Tablet 04/05/2020 P rovider: Diagnosis: Last Documented On 0 10:47AM By Carla CARPENTER ; [facility] Carvedilol 3.125 MG Oral Tablet 04/05/2020 Provider: Diagnosis: Last Documented On 0 10:47AM By Carla CARPENTER ; [facility] Atorvastatin Calcium 10 MG Oral Tablet 04/05/2020 Pr ovider: Diagnosis: Last Documented On 0 10:48AM By Carla CARPENTER ; [facility] Isosorbide Mononitrate ER 30 MG Oral Tablet Extended Release 24 Hour 04/05/2020 Provider: Diagnosis: Last Documented On 0 10:48AM By Carla CARPENTER ; [facility] Nitroglycerin 0.4 MG Sublingual Tablet Sublingual 03/26 Provider: Diagnosis: Last Documented On 0 10:48AM By Carla CARPENTER ; [facility] Vitamin B12 TR 2000 MCG Oral Tablet Extended Release 0 04/05/2020 Provider: Diagnosis: Last Documented On 0 10:49AM By Carla CARPENTER ; [facility] HYDROcodone-Acetaminophen 5-325 MG Oral Tablet 020 Provider: Diagnosis: Last Documented On 0 10:55AM By Carla CARPENTER ; [facility] diazePAM 10 MG Oral Tablet 04/05/2020 Provider: Diagnosis: Last Documented On 0 11:11AM By Carla CARPENTER ; [facility] Medications Administered Includes: Administered Medications from this encounter No Administered Medications Recorded Vital Signs Includes: Vital Signs from this encounter Vital Name 04/05/2020 10:49A Blood Pressure Sitting L 130/74 Temp-Oral (F) 97 Height (in) 72 Weight (lb) 190 Body Mass Index (kg/m2) 25.8 Body Surface Area (m2) 2.1 Pain Level 9 Last Documented: On 04/05/2020 10:50A M ; [facility] Results Includes: Results discussed during this [...] Patient was treated by Dr. Haynes in [place] for 6 to 7 years until insurance changes limited treatment. He has been utilizing ice, activity modification, Tylenol under the direction of his physician for several months. He suffered an RI 16 months ago and is on chronic [...] 4000F Last Documented On 0 10:46AM ; [facility] use of tobacco assessment performed 1000F Last Documented On 0 10:22AM ; [facility] review of medications documented 1160F Last Documented On 0 10:22AM ; [facility] screening for adult depression: impressi on and score Last Documented On 0 10:27AM ; [facility] standardized depression screening: posit katherine for symptoms Last Documented On 0 10:27AM ; [facility] Clinical summary provided to patient Last Documented On 0 10:22AM ; [facility] Medical History Includes: Medical History addressed during this encounter Description Last Updated History of glaucoma 04/05/2020 Last Documented On 0 9:32AM ; [facility] No previous psychiatric treatment 2019 Last Documented On 0 9:32AM ; [facility] Family History Includes: Family History addressed during [...] Diagnosis PAIN MANAGEMENT NEW CONSULT [facility] 04/05/20 20 10:30AM 11:19AM Chronic Pain Syndrome,Lumb ar Radiculopathy ,Alf Use of Opiate Analgesic Insurance Includes: Active Insurance Policies Plan Name Member ID Group # Subscriber Relationship Effect katherine Dates - [facility] [id number] ELLE BIANCHI Self Clinical Notes Includes: Clinical Notes from this encounter No Clinical Notes Recorded
--- OUTSIDE RECORDS SUMMARY | 2025-07-18 10:51 | XMS_ITS | Encounter Summary ---
Author Organization [facility] Address [address] [place] [address] Care Team Providers Care Manager Architectural Name Role Phone Seymour Cunningham MD Primary Care Provider [phone] Reason for Visit * Reason Comments Refill Request Encounter Details Date Type Department Care Team (Late st Contact Info) Description 09/04/2024 Refill [facility] - Plastic Surgery [address] [place] [address], [place] [id number] Sara Dias MD [address] [place] [address] DIV [place] [address] Refill Request Social History Tobacco Use Types [...] medical care, and heating? Very hard 02/26/2024 [facility] [place] [facility] - Occupational Stress [...] place to sleep or slept in a senior care (including now)? No 02/26/2024 Sex and Gender Information Value Date Recorded Sex Assigned at Not on file Legal Sex Male 5:28 PM [employer] Gender Identity Not on file Sexual Orientation [...] on filedocumented in this encounter Care Teams Manager Architectural Relationship Specialty Start Date End Date Seymour Cunningham MD [address] [place] [address] PCP - General Gastroenterology 02/15/24 documented as of this encounter
--- OUTSIDE RECORDS SUMMARY | 2025-07-18 10:51 | XMS_ITS | Clinical Summary ---
Author Organization [facility] Address [facility] [place] [address] Care Team Providers Care Car Wrecker Name Role Phone None, Provider MD Primary Care Provider Unavaila ble Allergies No known active allergies Medications citalopram 20 MG tablet TK 1 T PO D 0 07/28/2017 Active ibuprofen 800 MG tablet TK 1 T PO TID PRN. WF 3 07/07/2017 Active OLANZapine 5 MG tablet TK 1 T PO HS 0 07/28/2017 Active Pancrelipase, Yep-Lvpi-Ahfu, (CREON) 51068 units CAPSULE ENTERIC COATED PARTICLES Take 36,000 Units by mouth. 09/04/2016 Active ranitidine 150 MG tablet Take 300 mg by mouth. 2016 Active hydrocodone-gerda taminophen 5-325 MG tablet TK 1 T PO BID PRN. MUST LAST 30 DAYS 0 12/15/2017 Active cyclobenzaprine 10 MG tablet Take 1 tablet (10 mg total) by mouth 3 (three) times daily as needed for Muscle Spasms. 90 tablet 04/14/2018 Active diazepam 5 MG tablet Take 10 mg by mouth every 8 (eight) hours as needed. 12/10/2017 Active amoxicillin-cla vulanate (AUGMENTIN) 875-125 MG tablet Take 1 tablet (875 mg total) by mouth 3 (three) times daily for 7 days. 21 tablet 07/01/2025 Active Problems Problem Noted Date Diagnosed Date SI (sacroiliac) joint inflammation 04/14/2018 Lumbar radiculopathy 08/02/2017 Myofascial pain 08/02/2017 Encounters Date Type Department Care Team Description 07/01/2025 6:21 AM TECHNICAL RECRUITER - 07/01/2025 11:10 AM TECHNICAL RECRUITER Emergency [facility] [place] [address] Dimple Pearson MD Abdominal Pain Discharge Disposition: Home or Self Care (Routine Discharge) 07/01/2025 Travel from Last 3 Months Social History Tobacco Use Types Packs/Day Years [...] Sex Assigned at Male 07/01/2025 7:06 AM TECHNICAL RECRUITER Legal Sex Male 5:15 PM CDT Gender Identity Not on file Sexual Orientation Not on file Last Filed Vital Signs Vital Sign Reading Time Taken Comments Blood Pressure 105/63 07/01/2025 10:00 AM TECHNICAL RECRUITER Pulse 62 07/01/2025 10:00 AM TECHNICAL RECRUITER Temperature 36.8 C (98.3 F) 07/01/2025 6:33 AM TECHNICAL RECRUITER Respiratory Rate 25 07/01/2025 6:30 AM TECHNICAL RECRUITER Oxygen Saturation 98% 07/01/2025 10: 00 AM TECHNICAL RECRUITER Inhaled Oxygen Concentration - - Weight 79.7 kg (175 lb 11.3 oz) 07/01/2025 6:30 AM TECHNICAL RECRUITER Height 190.5 cm (6' 3) 07/01/2025 6:30 AM TECHNICAL RECRUITER Body Mass Index 21.96 07/01/2025 6:30 AM TECHNICAL RECRUITER Plan of Treatment Health Maintenance Due Date Last Done Comments Colorectal Cancer Screening Colonoscopy (10 Years) 1960 Annual Physical 10/06/1963 Hepatitis C 1978 Zoster Vaccines (1 of 2) 2010 Lung Cancer Screening 08/03/2016 08/03/2015 Pneumococcal Vaccine: 50+ Years (2 of 2 - PCV) 05/23/2023 05/23/2022 DTaP, Tdap and Td Vaccines (2 - Td or Tdap) 11/29/2031 11/28/2021 RSV Immunization or 60+ Years Completed 08/27/2023 COVID-19 Vaccine Completed 05/09/2025, 04/2024, 04/12/2022, Additional history exists Influenza Adult Completed 05/09/2025, 07/26, 05/23/2022, Additional history exists Hepatitis A Vaccines Aged Out No long [...] on patient's age to complete this topic Procedures Procedure Name Priority Date/Time Associated Diagnosis Comments URINALYSIS STAT 07/01/2025 10:13 AM TECHNICAL RECRUITER XR CHEST PORTABLE STAT 07/01/2025 8:5 [address] ABD+PEL W CON STAT 07/01/2025 8:27 AM TECHNICAL RECRUITER D-DIMER, QUANTITATIVE STAT 07/01/2025 6:40 AM TECHNICAL RECRUITER MAGNESIUM STAT 07/01/2025 6:40 AM TECHNICAL RECRUITER LIPASE STAT 07/01/2025 6:40 AM TECHNICAL RECRUITER TROPONIN, QUANT STAT 07/01/2025 6:40 AM TECHNICAL RECRUITER COMPREHENSIVE METABOLIC PANEL STAT 07/01/2025 6:40 AM TECHNICAL RECRUITER HC CBC AUTO W/AUTO DIFF STAT 07/01/2025 6:40 AM TECHNICAL RECRUITER ECG 12-LEAD Routine 07/01/2025 6:26 AM TECHNICAL RECRUITER from Last 3 Months Results * (ABNORMAL) URINALYSIS (07/01/2025 10:13 AM TECHNICAL RECRUITER) SPECIMEN TYPE URINE CLEAN CATCH 07/01/2025 10:13 AM TECHNICAL RECRUITER [facility] COLOR (U) LIGHT YELLOW 07/01/2025 10:28 AM TECHNICAL RECRUITER [facility] TRANSPARENCY CLEAR 07/01/2025 10:28 AM [facility] SPECIFIC GRAVITY (U) 1.031(H) 1.001 - 1.030 07/01/2025 10:28 AM [facility] U PH 8.0 5.0 - 9.0 07/01/2025 10:28 AM [facility] LEUKOCYTES (U) NEGATIVE NEGATIVE 07/01/2025 10:28 AM [facility] NITRITES NEGATIVE NEGATIVE 07/01/2025 10:28 AM [facility] PROTEIN RANDOM (U) NEGATIVE <30 MG/DL 07/01/2025 10:28 AM [facility] GLUCOSE (U) NORMAL NORMAL MG/DL 07/01/2025 10:28 AM [facility] KETONES MG/DL (U) NEGATIVE NEGATIVE MG/DL 07/01/2025 10:28 AM [facility] UROBILINOGEN NORMAL NORMAL MG/DL 07/01/2025 10:28 AM [facility] BILIRUBIN (U) NEGATIVE NEGATIVE MG/DL 07/01/2025 10:28 AM [facility] BLOOD (U) NEGATIVE NEGATIVE 07/01/2025 10:28 AM [facility] URINE URINE SPECIMEN OBTAINED BY CLEAN CATCH PROCEDURE / Unknown 07/01/2025 10:13 AM [facility] us Dimple Pearson MD URINE ORDERABLES Final Result [facility] [address] [place] [address], [place] [phone] * XR CHEST PORTABLE (07/01/2025 8:56 AM TECHNICAL RECRUITER) Anatomical Region Laterality Modality Chest Radiographic Anjelica ging 07/01/2025 8:56 AM TECHNICAL RECRUITER Impressions 07/01/2025 9:06 AM TECHNICAL RECRUITER IMPRESSION:===== No acute findings. Referred By: Interpreted By: John Bolden MD, 07/01/2025 8:56 AM Narrative 07/01/2025 9:06 AM TECHNICAL RECRUITER [place] [address] EXAMINATION: CHEST RADIOGRAPH SINGLE VIEW Exam date/time: 07/01/2025 8:35 AM Reason For Exam: dyspnea Comparison: 12/08/2017 Technique: Upright AP view of the chest Findings: Heart size normal. Proximal airways unremarkable. No suspicious pulmonary lesion, pneumothorax, or pleural effusion. ===== Procedure Note John Bolden MD - 07/01/2025 [place] [address] EXAMINATION: CHEST RADIOGRAPH SINGLE VIEW Exam date/time: 07/01/2025 8:35 AM Reason For Exam: dyspnea Comparison: 12/08/2017 Technique: Upright AP view of the chest Findings: Heart size normal. Proximal airways unremarkable. No suspiciouspulmonary lesion, pneumothorax, or pleural effusion. ===== IMPRESSION:===== No acute findings. Referred By: Interpreted By: John Bolden MD, 07/01/2025 8:56 AM us Dimple Pearson MD GENERAL IMAGING Final Result * CT ABD+PEL W IV CON ONLY (07/01/2025 8:27 AM TECHNICAL RECRUITER) Anatomical Region Laterality Modality Abdomen Computed Tomogra phy 07/01/2025 8:29 AM TECHNICAL RECRUITER Impressions 07/01/2025 8:41 AM TECHNICAL RECRUITER IMPRESSION: Bilateral perinephric stranding is present. This may relate to medical renal disease. Small hyperattenuating renal lesion LEFT kidney measuring 70 Hounsfield units. Elective renal MRI. Diffuse colonic wall thickening is present in the sigmoid colon and rectum. This may relate to inflammatory or infectious change. This is also present in the ascending and proximal transverse colon. Findings may relate to an underlying infectious colitis. Follow-up colonoscopy recommended if not recently performed. Mild atelectasis in the lung bases. Referred By: Interpreted By: Mulugeta Tamez MD, 07/01/2025 8:29 AM Narrative 07/01/2025 8:41 AM TECHNICAL RECRUITER [address] [address] Procedure(s): CT ABD+PEL W CON Date of service: 07/01/2025 8:14 AM Provided clinical information: 64 years, Male, abd painRIGHT lower quadrant pain. Procedure and materials: Helical images of the abdomen and pelvis are obtained from superior to the diaphragm to inferior to the pubic symphysis. Sagittal and coronal reconstructions are obtained. 100 mL Isovue 370. A dose lowering technique was used for this procedure, which may include, but is not limited to, dose reduction technique, automated exposure control, iterative reconstruction, ALARA (As Low As Reasonably Achievable), or Image Gently techniques. Comparison studies: July 01, 2025. Findings: CT abdomen and pelvis: Lung Bases: No pleural effusions or consolidations.Atelectatic changes are present in the lung bases. Adrenals:Unremarkable Spleen:No splenomegaly. Gallbladder and Biliary system:Prior cholecystectomy. Mild dilatation of the extra hepatic common bile duct. This may be secondary to reservoir effect from prior cholecystectomy. Pancreas:Unremarkable Liver:Mild intrahepatic ductal dilatation is present. This may be secondary to reservoir effect. Slight hyperattenuation along the medial segment LEFT lobe of the liver likely due to steatosis. Kidneys:Bilateral perinephric stranding is present. This may relate to underlying medical renal disease. There is a hyperdense LEFT renal lesion measuring approximately 70 Hounsfield units. Further evaluation with renal MRI with and without contrast is recommended on an elective basis. Multiple low attenuating renal lesions likely due to cysts. No follow-up imaging is recommended per consensus recommendations based on imaging criteria. . Bowel:Diffuse rectal and sigmoid bowel wall thickening is present. This may relate to inflammatory or infectious change. This is also present in the ascending and transverse colon. Colonic diverticulosis without evidence of acute diverticulitis. No periappendiceal inflammatory changes. No small bowel dilatation. Aorta and Retroperitoneum:Aorta is not aneurysmal.No enlarged lymph nodes. Pelvic Organs:Urinary bladder is distended. Prostate is not enlarged Bone/Musculoskeletal: Bifid spinous process of S1. This is an anatomical variant. Postsurgical changes LEFT femur. Free fluid: Bilateral perinephric stranding. Secondary to medical renal disease. Procedure Note Mulugeta Tamez MD - 07/01/[address] [address] Procedure(s): CT ABD+PEL W CON Date of service: 07/01/2025 8:14 AM Provided clinical information: 64 years, Male, abd painRIGHT lowerquadrant pain. Procedure and materials: Helical images of the abdomen and pelvis areobtained from superior to the diaphragm to inferior to the pubicsymphysis. Sagittal and coronal reconstructions are obtained. 100 mLIsovue 370. A dose lowering technique was used for this procedure, which may include,but is not limited to, dose reduction technique, automated exposurecontrol, iterative reconstruction, ALARA (As Low As ReasonablyAchievable), or Image Gently techniques. Comparison studies: July 01, 2025. Findings: CT abdomen and pelvis: Lung Bases: No pleural effusions or consolidations.Atelectatic changes arepresent in the lung bases. Adrenals:Unremarkable Spleen:No splenomegaly. Gallbladder and Biliary system:Prior cholecystectomy. Mild dilatation ofthe extra hepatic common bile duct. This may be secondary to reservoireffect from prior cholecystectomy. Pancreas:Unremarkable Liver:Mild intrahepatic ductal dilatation is present. This may besecondary to reservoir effect. Slight hyperattenuation along the medialsegment LEFT lobe of the liver likely due to steatosis. Kidneys:Bilateral perinephric stranding is present. This may relate tounderlying medical renal disease. There is a hyperdense LEFT renal lesionmeasuring approximately 70 Hounsfield units. Further evaluation with renalMRI with and without contrast is recommended on an elective basis. Multiple low attenuating renal lesions likely due to cysts. No follow-upimaging is recommended per consensus recommendations based on imagingcriteria. . Bowel:Diffuse rectal and sigmoid bowel wall thickening is present. Thismay relate to inflammatory or infectious change. This is also present inthe ascending and transverse colon. Colonic diverticulosis withoutevidence of acute diverticulitis. No periappendiceal inflammatory changes.No small bowel dilatation. Aorta and Retroperitoneum:Aorta is not aneurysmal.No enlarged lymphnodes. Pelvic Organs:Urinary bladder is distended. Prostate is not enlarged Bone/Musculoskeletal: Bifid spinous process of S1. This is an anatomicalvariant. Postsurgical changes LEFT femur. Free fluid: Bilateral perinephric stranding. Secondary to medical renaldisease. IMPRESSION: Bilateral perinephric stranding is present. This may relate to medicalrenal disease. Small hyperattenuating renal lesion LEFT kidney [id number] Hounsfield units. Elective renal MRI. Diffuse colonic wall thickening is present in the sigmoid colon andrectum. This may relate to inflammatory or infectious change. This is alsopresent in the ascending and proximal transverse colon. Findings mayrelate to an underlying infectious colitis. Follow-up colonoscopyrecommended if not recently performed. Mild atelectasis in the lung bases. Referred By: Interpreted By: Mulugeta Tamez MD, 07/01/2025 8:29 AM us Dimple Pearson MD CT Final Result * TROPONIN, QUANT (07/01/2025 6:40 AM TECHNICAL RECRUITER) TROPONIN I HIGH SENSITIVITY 6 <79 ng/L 07/01/2025 7:37 AM TECHNICAL RECRUITER [facility] Comment: HIGH DOSES OF BIOTIN, TROPONIN-SPECIFIC AUTOANTIBODIES, AND ANTIBODY THERAPY CONTAINING HAMA MAY INTERFERE WITH THIS TEST RESULT. CORRELATION TO CLINICAL HISTORY AND PRESENTATION RECOMMENDED. BLOOD VENOUS BLOOD SPECIMEN / Unknown 07/01/2025 6:40 AM TECHNICAL RECRUITER us Dimple Pearson MD LABORATORY Final Result Performing Organization Address City/[facility]/ZIP Co de Phone Number [facility] [address] [place] [address], [place] [phone] * MAGNESIUM (07/01/2025 6:40 AM TECHNICAL RECRUITER) Pathologist [facility] MAGNESIUM 2.2 1.8 - 2.4 MG/DL 07/01/2025 7:37 AM TECHNICAL RECRUITER [facility] BLOOD VENOUS BLOOD SPECIMEN / Unknown 07/01/2025 6:40 AM TECHNICAL RECRUITER us Dimple Pearson MD LABORATORY Final Result Performing Organization Address [facility] Co de Phone Number [facility] [address] [place] [address], [place] [phone] * (ABNORMAL) LIPASE (07/01/2025 6:40 AM TECHNICAL RECRUITER) [facility] LIPASE 106(H) 13 - 75 UNITS/L 07/01/2025 7:37 AM TECHNICAL RECRUITER [facility] BLOOD VENOUS BLOOD SPECIMEN / Unknown 07/01/2025 6:40 AM TECHNICAL RECRUITER us Dimple Pearson MD LABORATORY Final Result Performing Organization Address [facility]/ZIP Co de Phone Number [facility] [address] [place] [address], [place] [phone] * D-DIMER, QUANTITATIVE (07/01/2025 6:40 AM TECHNICAL RECRUITER) [facility] D-DIMER 276 0 - 500 ng{FEU}/mL 07/01/2025 7:39 AM TECHNICAL RECRUITER [facility] Comment: D-Dimer values less than or equal to 500 ng/mL FEU have a negative predictive value of >95% for exclusion of deep vein thrombosis and pulmonary embolism. In patients over 50 (who tend to have higher normal baseline D-Dimer values), recent studies suggest age-adjusted D-Dimer cutoff values (calculated as: age [years] x 10 ng/mL) result in equivalent outcomes and no additional false negative findings. BLOOD VENOUS BLOOD SPECIMEN / Unknown 07/01/2025 6:40 AM TECHNICAL RECRUITER us Dimple Pearson MD LABORATORY Final Result [facility] [address] [place] [address], * (ABNORMAL) COMPREHENSIVE METABOLIC PANEL (07/01/2025 6:40 AM TECHNICAL RECRUITER) Pathologist [facility] GLUCOSE 98 70 - 99 MG/DL 07/01/2025 7:37 AM [facility] BUN 19(H) 7 - 18 MG/DL 07/01/2025 7:37 AM [facility] CREATININE S/P/B 1.23 0.7 - 1.3 MG/DL 07/01/2025 7:37 AM TECHNICAL RECRUITER [facility] SODIUM S/P/B 141 136 - 145 MMOL/L 07/01/2025 7:37 AM [facility] POTASSIUM S/P/B 4.1 3.5 - 5.1 MMOL/L 07/01/2025 7:37 AM TECHNICAL RECRUITER [facility] CHLORIDE S/P/B 111 97 - 115 MMOL/L 07/01/2025 7:37 AM [facility] CO2 22.8 21 - 32 MMOL/L 07/01/2025 7:37 AM [facility] CALCIUM S/P/B 10.0 8.5 - 10.1 MG/DL 07/01/2025 7:37 AM [facility] BILIRUBIN TOTAL S/P/B 0.6 0.2 - 1.2 MG/DL 07/01/2025 7:37 AM [facility] Comment: THIS ASSAY IS NOT RECOMMENDED FOR PATIENTS UNDERGOING TREATMENT WITH ELTROMBOPAG DUE TO THE POTENTIAL FOR FALSELY ELEVATED RESULTS. TOTAL PROTEIN S/P/B 7.7 6.4 - 8.2 G/DL 07/01/2025 7:37 AM [facility] ALBUMIN S/P/B 4.3 3.4 - 5.0 G/DL 07/01/2025 7:37 AM [facility] AST 21 15 - 37 U/L 07/01/2025 7:37 AM [facility] ALT 27 16 - 60 U/L 07/01/2025 7:37 AM [facility] ALKALINE PHOSPHATASE S/P/B 97 50 - 136 U/L 07/01/2025 7:37 AM [facility] ANION GAP 7.2 2 - 10 MMOL/L 07/01/2025 7:37 AM [facility] BUN CREATININE RATIO 15.4 6 - 26 07/01/2025 7:37 AM [facility] A/G RATIO 1.3 1.0 - 2.0 RATIO 07/01/2025 7:37 AM [facility] GFR ESTIMATE 66(L) >90 ML/MIN/1.7 3 M2 07/01/2025 7:37 AM [facility] Comment: NOTE: eGFR is not calculated for patients <18 years of age or gender unknown. This is an estimated GFR calculation using the new CKD EPI creatinine equation without race and so does not require a correction factor for race. This estimated GFR should not be used for calculating drug doses. BLOOD VENOUS BLOOD SPECIMEN / Unknown 07/01/2025 6:40 AM TECHNICAL RECRUITER us Dimple Pearson MD LABORATORY Final Result [facility] [address] [place] [address], [place] [phone] * (ABNORMAL) CBC W/DIFF AUTOMATED (07/01/2025 6:40 AM TECHNICAL RECRUITER) WBC 7.28 4.5 - 11.0 x10'3/uL 07/01/2025 7:13 AM TECHNICAL RECRUITER [facility] RBC 4.62(L) 4.70 - 6.10 x10'6/uL 07/01/2025 7:13 AM [facility] HGB 14.9 14.0 - 18.0 G/DL 07/01/2025 7:13 AM [facility] HCT 43.2 43.0 - 54.0 % 07/01/2025 7:13 AM [facility] MCV 93.5 80.0 - 94.0 FL 07/01/2025 7:13 AM [facility] MCH 32.3(H) 27.0 - 31.0 PG 07/01/2025 7:13 AM [facility] MCHC 34.5 32.0 - 36.0 G/DL 07/01/2025 7:13 AM TECHNICAL RECRUITER [facility] RDW 13.6 11.5 - 14.5 % 07/01/2025 7:13 AM [facility] PLT 202 130 - 400 x10'3/uL 07/01/2025 7:13 AM [facility] MPV 9.4 9.3 - 12.2 FL 07/01/2025 7:13 AM [facility] DIFFERENTIAL TYPE AUTOMATED DIFFERENTIAL 07/01/2025 7:13 AM TECHNICAL RECRUITER [facility] NEUTROPHILS % 62.9 % 07/01/2025 7:13 AM TECHNICAL RECRUITER [facility] LYMPHOCYTES % 27.7 % 07/01/2025 7:13 AM TECHNICAL RECRUITER [facility] MONOCYTES % 8.0 % 07/01/2025 7:13 AM TECHNICAL RECRUITER [facility] EOSINOPHILS 0.8 % 07/01/2025 7:13 AM TECHNICAL RECRUITER [facility] BASOPHILS 0.3 % 07/01/2025 7:13 AM TECHNICAL RECRUITER [facility] IMMATURE GRANS % 0.3 % 07/01/20 7:13 AM TECHNICAL RECRUITER [facility] ABS. NEUTROPHILS 4.58 1.80 - 7.70 x10'3/uL 07/01/2025 7:13 AM TECHNICAL RECRUITER [facility] ABS. LYMPHOCYTES 2.02 1.00 - 4.80 x10'3/uL 07/01/2025 7:13 AM TECHNICAL RECRUITER [facility] ABS. MONOCYTES 0.58 0.30 - 0.82 x10'3/uL 07/01/2025 7:13 AM TECHNICAL RECRUITER [facility] ABS. EOSINOPHILS 0.06 0.04 - 0.54 x10'3/uL 07/01/2025 7:13 AM TECHNICAL RECRUITER [facility] ABS. BASOPHILS 0.02 0.01 - 0.08 x10'3/uL 07/01/2025 7:13 AM TECHNICAL RECRUITER [facility] ABS. IMMATURE GRANULOCYTES 0.02 0.00 - 0.49 x10'3/uL 07/01/2025 7:13 AM [facility] BLOOD VENOUS BLOOD SPECIMEN / Unknown 07/01/2025 6:40 AM TECHNICAL RECRUITER us Dimple Pearson MD LABORATORY Final Result [facility] [address] [place] [address], * ECG 12 lead (07/01/2025 6:26 AM TECHNICAL RECRUITER) ECG QT 387 [facility] QTC 392 [facility] RAD 07/01/2025 6:26 AM TECHNICAL RECRUITER Narrative [facility] ([place]) RAD - 07/01/2025 7:45 AM TECHNICAL RECRUITER [place] Test Date: 2025-07-01 Pat Name: BORIS COLIN Department: 41 Room: [id number] Gender: Male Yeast Supervisor: [id number] : 1960 Requested By: JEREMI GARCIA Order Number: [id number] Reading MD: Armond Jackson Measurements Intervals [place] Rate: 61 P: 68 NM: 148 QRS: -26 QRSD: 95 T: 91 QT: 387 QTc: 392 Interpretive Statements SINUS RHYTHM POSSIBLE RIGHT VENTRICULAR CONDUCTION DELAY [RSR (QR) IN V1/V2] SEPTAL MYOCARDIAL INFARCTION , OF INDETERMINATE AGE [40+ ms Q WAVE IN V1/V2] No previous ECG available for comparison Other ischemic changes, not STEMI Preliminary EKG Interpretation by Dimple Pearson M.D NICAL RECRUITER Procedure Note Armond [place] MD - 07/01/[address] [place] Test Date: 2025-07-01 Pat Name: BORIS ARIAS Department: 41 Room: [id number] Gender: Male Yeast Supervisor: [id number] : 1960 Requested By: JEREMI GARCIA Order Number: [id number] Reading MD: Armond [place] Measurements Intervals [place] Rate: 61 P: 68 NM: 148 QRS: -26 QRSD: 95 T: 91 QT: 387 QTc: 392 Interpretive Statements SINUS RHYTHM POSSIBLE RIGHT VENTRICULAR CONDUCTION DELAY [RSR (QR) IN V1/V2] SEPTAL MYOCARDIAL INFARCTION , OF INDETERMINATE AGE [40+ ms Q WAVE INV1/V2] No previous ECG available for comparison Other ischemic changes, not STEMI Preliminary EKG Interpretation by Dimple Pearson M.D NICAL RECRUITER us Dimple Pearson MD ECG ORDERABLES Final Result [facility] RAD from Last 3 Months Insurance [place] Care Teams Car Wrecker Relationship Specialty Start Date End Date None, Provider, PCP - General UNKNOWN PHYSICIAN SPECIALTY 07/01/25
--- OUTSIDE RECORDS SUMMARY | 2025-07-18 10:51 | XMS_ITS ---
Care Plan - [facility] Created on: July 18, 2025 ELLE BIANCHI : 1960 Sex: Male Author Organization [facility] Address [address] [place] [address] Phone Care Team Providers Care Arborer Name Role Phone FREEMAN JIN MD Primary Care Provider Unavail able
--- OUTSIDE RECORDS SUMMARY | 2025-07-18 10:51 | XMS_ITS | Clinical Summary ---
Author Organization [facility] Address [address] [place] [address] Care Team Providers Care Services Engineer Name Role Phone Seymour Cunningham MD Primary Care Provider [phone] Source Comments [facility],non-owned Affiliates and Associated Physician Practices is amultiple site organization consisting of ambulatory clinics and hospital sitesin [place], [place], [place] and [place]. This disclosure is being madepursuant to the Care Everywhere program and may not contain all information available regarding this patient. Last updated 18.[facility] Allergies No known active allergies Medications * Be aware that medications may not be up to date on this document. Alwaysverify current medications with the patient. citalopram (CELEXA) 20 MG tablet Take 1 (one) tablet by mouth DAILY 2 7 Active cyclobenzaprine (FLEXERIL) 10 MG tablet Take 2 (two) tablets by mouth DAILY 2 7 Active Pancrelipase, Orw-Olbd-Hojk, (CREON) 58678 UNITS Take 1 (one) capsule by mouth [...] hemangioma, normal liver CT scan 08/09/13 s/p michael with biliary stent, 1.5 cm hemangioma, stable, [...] medical care, and heating? Very hard 02/26/2024 [facility]at [facility] - Occupational Stress [...] place to sleep or slept in a longterm (including now)? No 02/26/2024 Sex and Gender Information Value Date Recorded Sex Assigned at Not on file Legal Sex Male 5:28 PM REHAB SERVICES AIDE Gender Identity Not on file Sexual Orientation [...] patient's age to complete this topic Insurance [facility] Advance Directives * Full Code (Latest Code Status on File) Date Activated Date Inactivated Comments 02/26/2024 7:46 PM 03/01/2024 2:44 PM Care Teams Services Engineer Relationship Specialty Start Date End Date Seymour Cunningham MD [address] [place] [address] PCP - General Gastroenterology 02/15/24
--- OUTSIDE RECORDS SUMMARY | 2025-07-18 10:51 | XMS_ITS | Clinical Summary ---
Author Organization [facility] Address [address] [place] [address] Phone Care Team Providers Care Manager Star Name Role Phone Unavailable Primary Care Provider Unavailabl e Social History Tobacco Use Types Packs/Day Years Used Date Smoking Tobacco: Never Assessed Sex and Gender Information Value Date Recorded Sex Assigned at Not on file Legal Sex Male 11:08 AM [employer] Gender Identity Not on file Sexual Orientation [...]
--- OUTSIDE RECORDS SUMMARY | 2025-07-18 10:51 | XMS_ITS | Clinical Summary ---
Author Organization [facility] Address [address] [place] [address] Phone Care Team Providers Care Sheet Rock Installer Name Role Phone FREEMAN JIN MD Primary [...] On 0 10:47AM By Carla CARPENTER ; [facility] Citalopram Hydrobromide 20 MG Oral Tablet 04/05/2020 Provider: Diagnosis: Last Documented On 0 10:47AM By Carla CARPENTER ; [facility] Clopidogrel Bisulfate 75 MG Oral Tablet 04/05/2020 P rovider: Diagnosis: Last Documented On 0 10:47AM By Carla CARPENTER ; [facility] Carvedilol 3.125 MG Oral Tablet 04/05/2020 Provider: Diagnosis: Last Documented On 0 10:47AM By Carla CARPENTER ; [facility] Atorvastatin Calcium 10 MG Oral Tablet 04/05/2020 Pr ovider: Diagnosis: Last Documented On 0 10:48AM By Carla CARPENTER ; [facility] Isosorbide Mononitrate ER 30 MG Oral Tablet Extended Release 24 Hour 04/05/2020 Provider: Diagnosis: Last Documented On 0 10:48AM By Carla CARPENTER ; [facility] Nitroglycerin 0.4 MG Sublingual Tablet Sublingual 03/26 Provider: Diagnosis: Last Documented On 0 10:48AM By Carla CARPENTER ; [facility] Vitamin B12 TR 2000 MCG Oral Tablet Extended Release 0 04/05/2020 Provider: Diagnosis: Last Documented On 0 10:49AM By Carla CARPENTER ; [facility] HYDROcodone-Acetaminophen 5-325 MG Oral Tablet 020 Provider: Diagnosis: Last Documented On 0 10:55AM By Carla CARPENTER ; [facility] diazePAM 10 MG Oral Tablet 04/05/2020 Provider: Diagnosis: Last Documented On 0 11:11AM By Carla CARPENTER ; [facility] Medications Administered Includes: Administered Medications [...] # Subscriber Relationship Effect katherine Dates - [facility] [id number] ELLE BIANCHI Self Clinical Notes Includes: Clinical Notes from this encounter No Clinical Notes Recorded
--- OUTSIDE RECORDS SUMMARY | 2025-07-18 10:51 | XMS_ITS | Clinical Summary ---
Author Organization [facility] Address [address] [place] [address] Phone Care Team Providers Care Washing Machine Installer Name Role Phone FREEMAN JIN MD [...] On 0 10:47AM By Carla CARPENTER ; [facility] Citalopram Hydrobromide 20 MG Oral Tablet 04/05/2020 Provider: Diagnosis: Last Documented On 0 10:47AM By Carla CARPENTER ; [facility] Clopidogrel Bisulfate 75 MG Oral Tablet 04/05/2020 P rovider: Diagnosis: Last Documented On 0 10:47AM By Carla CARPENTER ; [facility] Carvedilol 3.125 MG Oral Tablet 04/05/2020 Provider: Diagnosis: Last Documented On 0 10:47AM By Carla CARPENTER ; [facility] Atorvastatin Calcium 10 MG Oral Tablet 04/05/2020 Pr ovider: Diagnosis: Last Documented On 0 10:48AM By Carla CARPENTER ; [facility] Isosorbide Mononitrate ER 30 MG Oral Tablet Extended Release 24 Hour 04/05/2020 Provider: Diagnosis: Last Documented On 0 10:48AM By Carla CARPENTER ; [facility] Nitroglycerin 0.4 MG Sublingual Tablet Sublingual 03/26 Provider: Diagnosis: Last Documented On 0 10:48AM By Carla CARPENTER ; [facility] Vitamin B12 TR 2000 MCG Oral Tablet Extended Release 0 04/05/2020 Provider: Diagnosis: Last Documented On 0 10:49AM By Carla CARPENTER ; [facility] HYDROcodone-Acetaminophen 5-325 MG Oral Tablet 020 Provider: Diagnosis: Last Documented On 0 10:55AM By Carla CARPENTER ; [facility] diazePAM 10 MG Oral Tablet 04/05/2020 Provider: Diagnosis: Last Documented On 0 11:11AM By Carla CARPENTER ; [facility] Medications Administered Includes: Administered Medications [...] # Subscriber Relationship Effect katherine Dates - [facility] [id number] ELLE BIANCHI Self Clinical Notes Includes: Clinical Notes from this encounter No Clinical Notes Recorded
--- OUTSIDE RECORDS SUMMARY | 2025-07-18 10:51 | XMS_ITS ---
Author Organization [facility] Address [address] [place] [address] Phone Care Team Providers Care Environmental Scientists Name Role Phone FREEMAN JIN MD Primary Care Provider Unavail able Plan of Treatment Instructions to patient Intervention and counseling on cessation of tobacco use : Patient recieved smoking cessation handout Last Documented On 0 10:46AM ; [facility] Assessments Includes: Assessments for all patient encounters Findings Encounter Date Chronic pain syndrome PAIN MANAGEMENT NE W CONSULT with E[facility]RA [facility] 04/05/2020 Last Documented On 0 9:32AM ; [facility] half-way use of opiate analgesic PAIN M ANAGEMENT NEW CONSULT with EZRAJOSE [facility] 04/05/2020 Last Documented On 0 9:32AM ; [facility] Lumbar radiculopathy PAIN MANAGEMENT NEW CONSULT with E[facility]RA [facility] 04/05/2020 Last Documented On 0 9:32AM ; [facility] Instructions Includes: Instructions for all patient encounters Instructions to patient Intervention and counseling on cessation of tobacco use : Patient recieved smoking cessation handout Last Documented On 0 10:46AM ; [facility] Medical Equipment - Implanted Devices Includes: Current and historical Devices No Medical Equipment Recorded Medications Includes: Current and historical Medications Current Medications (continue as prescribed) Famotidine 20 MG Oral Tablet 04/05/2020 Provider: Diagnosis: Last Documented On 0 10:47AM By Carla CARPENTER ; [facility] Citalopram Hydrobromide 20 MG Oral Tablet 04/05/2020 Provider: Diagnosis: Last Documented On 0 10:47AM By Carla CARPENTER ; [facility] Clopidogrel Bisulfate 75 MG Oral Tablet 04/05/2020 P rovider: Diagnosis: Last Documented On 0 10:47AM By Carla CARPENTER ; [facility] Carvedilol 3.125 MG Oral Tablet 04/05/2020 Provider: Diagnosis: Last Documented On 0 10:47AM By Carla CARPENTER ; [facility] Atorvastatin Calcium 10 MG Oral Tablet 04/05/2020 Pr ovider: Diagnosis: Last Documented On 0 10:48AM By Carla CARPENTER ; [facility] Isosorbide Mononitrate ER 30 MG Oral Tablet Extended Release 24 Hour 04/05/2020 Provider: Diagnosis: Last Documented On 0 10:48AM By Carla CARPENTER ; [facility] Nitroglycerin 0.4 MG Sublingual Tablet Sublingual 03/26 Provider: Diagnosis: Last Documented On 0 10:48AM By Carla CARPENTER ; [facility] Vitamin B12 TR 2000 MCG Oral Tablet Extended Release 0 04/05/2020 Provider: Diagnosis: Last Documented On 0 10:49AM By Carla CARPENTER ; [facility] HYDROcodone-Acetaminophen 5-325 MG Oral Tablet 020 Provider: Diagnosis: Last Documented On 0 10:55AM By Carla CARPENTER ; [facility] diazePAM 10 MG Oral Tablet 04/05/2020 Provider: Diagnosis: Last Documented On 0 11:11AM By Carla CARPENTER ; [facility] Past Medications on file diazePAM 10 MG Oral Tablet 04/05/2020 - 04/05/2020 Pro vider: Diagnosis: Last Documented On 0 11:11AM By Carla CARPENTER ; [facility] Medications Administered Includes: Administered Medications in patient's chart No Administered Medications Recorded Results Includes: Results from 07/18/2024 through 07/18/2025 No Results Recorded For Specified Dates History of Present Illness History of Present Illness not supported for this document type No History of Present Illness Recorded Social History Description Last Updated Smoker 04/05/2020 Last Documented On 0 9:32AM ; [facility] Smoking Status Unknown Medical History Includes: Medical History in patient's chart Description Last Updated History of glaucoma 04/05/2020 Last Documented On 0 9:32AM ; [facility] No previous psychiatric treatment 2019 Last Documented On 0 9:32AM ; [facility] Family History Includes: Family History [...] # Subscriber Relationship Effect katherine Dates - [facility] [id number] ELLE Valiente Clinical Notes Includes: Signed Clinical Notes starting from 08/14/2022 No Clinical Notes Recorded
--- OUTSIDE RECORDS SUMMARY | 2025-07-18 10:52 | XMS_ITS | Data Portability ---
Author Organization [facility] [facility] Address [address] [place] [address] Assessment Encounter Date Assessment Date Assessment LastModified [...] stepped out and came in with a vpk teacher, Nettie Rich MA who was with me [...] 14 drugs (detecti med), urine 2023 024 [facility], [address] [facility], [address], [place], [address], 4 15:11:38 lipid panel, serum 2022 023 [facility]ogio [facility], [address], [address], [place], [address], 3 08:42:34 CBC 2022 023 [facility], [address], [address], [place], [address], 3 15:40:40 CMP, serum or plasma 2022 023 eulogio [facility], [address], [address], [place], [address], 3 08:42:34 HbA1c (hemoglo bin A1c), blood 2022 023 [facility], [address] [facility] [address], [address], [place], [address], 3 15:40:40 PSA, total, serum or plasma 2022 023 [facility], [address] [facility], [address], [place], [address], 3 15:40:41 Referral None recorded . Procedures None recorded . Surgeries None recorded . Imaging XR, ribs, unilater al 2024 025 [facility] ([facility] Scheduling), [address] [place], [address], 5 16:06:38 XR, lumbar spine 2023 024 [facility] (Radiology), [address] [place], [address], 5 17:30:13 LDCT, chest, for lung cancer screenin g [address] (One Call Scheduling), [address], [place], [address], 3 15:18:39 Medication Orders nicotine (polacri brandon) 4 mg buccal lozenge 2024 025 [facility] #82887, [address] , [place], [place], [id number], 5 13:48:30 zolpidem 5 mg tablet 2024 025 [facility], [address] [facility], [place], [place], [id number], 5 06:23:27 gabapent in 600 mg tablet 2024 025 [facility] #23490, [address] [facility], [place], [place], [id number], 5 17:50:08 tizanidi ne 4 mg tablet 2024 025 [facility]72634, [address] [facility], [place], [place], [id number], 5 17:50:08 lidocain e 5 % topical patch 2024 025 [facility] #31081, [address] [facility], [place], [place], [id number], 5 17:50:08 famotidi ne 20 mg tablet 2024 025 [facility] #09026, [address] , [place], [place], [id number], 5 17:50:09 Symbicor t 160 mcg-4.5 mcg/actu ation HFA aerosol inhaler 2024 025 [facility] #13097, [address] [facility], [place], [place], [id number], 5 17:55:13 olanzapi ne 10 mg tablet 2024 025 [facility] #43714, [address] [facility], [place], [place], [id number], 5 17:50:07 citalopr am 20 mg tablet 2024 025 [facility] #45591, [address] [facility], [place], [place], [id number], 5 17:50:08 zolpidem 5 mg tablet [address] [facility] #05459, [address] [facility], [place], [place], [id number], 5 06:23:18 cycloben zaprine 10 mg tablet [address] [facility] #28584, [address] [facility], [place], [place], [id number], 5 17:46:04 famotidi ne 20 mg tablet 2023 024 [facility] #62040, [address] [facility], [place], [place], [id number], 4 16:42:54 citalopr am 20 mg tablet 2023 024 [facility] #04894, [address] [facility], [place], [place], [id number], 4 16:43:08 Symbicor t 160 mcg-4.5 mcg/actu ation HFA aerosol inhaler 2022 023 [facility] #39253, [address], [place], [place], [id number], 4 15:42:44 gabapent in 300 mg capsule 2022 023 [facility] #64962, [address], [place], [place], [id number], 15:43:35 amoxicil gerard 875 mg-potas sium clavulan ate 125 mg tablet 2022 023 [facility] #98927, [address], [place], [place], [id number], 17:06:23 Patient TargetsNo targets recorded. Patient Instructions Encounter Date Encounter Id Patient Instructions Last Modified By Organization Details Last Modified Time 10/28/2022 [id number] deciding about u sing medicines to quit smoking [email or web address] Not available 10/28/2022 15:40:24 Quitting Tobacco : Care Instructions [email or web address] Not available 10/28/2022 15:40:22 back care and preventing injuries: care instructions Not available 10/28/2022 15:40:23 gastroesophageal reflux disease (GERD): care instructions [email or web address] Not available 10/28/2022 15:40:23 high cholesterol : care instructions [email or web address] Not available 10/28/2022 15:40:23 chronic obstruct katherine pulmonary disease (COPD): care instructions [email or web address] Not available 10/28/2022 15:40:23 learning about c opd and how to prevent lung infections [email or web address] Not available 10/28/2022 15:40:23 learning about h igh blood sugar [email or web address] Not available 10/28/2022 15:40:22 abscessed tooth: care instructions [id number] Not available 10/28/2022 15:40:23 02/08/2024 [id number] insomnia: care instructions Not available 02/08/2024 16:42:41 back care and preventing injuries: care instructions [email or web address] Not available 02/08/2024 16:42:41 learning about m ood disorders [email or web address] Not available 02/08/2024 16:42:41 12/28/2024 [id number] deciding about u sing medicines to quit smoking [email or web address] Not available 12/28/2024 17:49:58 Quitting Tobacco : Care Instructions Not available 12/28/2024 17:49:59 chronic obstruct katherine pulmonary disease (COPD): care instructions [email or web address] Not available 12/28/2024 17:55:07 learning about c opd and how to prevent lung infections [email or web address] Not available 12/28/2024 17:55:07 Reason for Referral [...] and delta -8-te trahy droca nnabi nol. [place] codon e 868 ng/mg creat [place] morph one 68 ng/mg creat Dihyd rocod eine 169 ng/mg creat Norhy droco done 453 ng/mg creat Sourc es of hydro codon e inclu de sched uled presc ripti on medic ation s. [place] morph one, dihyd rocod eine and norhy droco done are expec mayra metab olite s of hydro codon e. [place] morph one and dihyd rocod eine are [...] a consu ltati on, pleas e call [phone]. ===== ===== ===== ===== ===== ===== ===== ===== ===== ===== ===== ===== ===== === Not Available [facility] ([facility]) [address] [facility], [place], [address], 10/22/2022 15:10:34 10/16/1910/22/2022 COMPL IANCE DRUG ARMANDO SIS, UR pdf . Not Available [facility] ([facility]) [address] [facility], [place], [address], 10/22/2022 15:10:34 02/26/20 24 02/26/2024 Urina lysis [...] 24 03/28/2024 Fungu s ident ified in [place] [facility] by Cultu re microorganis m identified in specimen by culture No fungus isolat ed Not Available Not Available 12:06:28 02/26/20 24 03/28/2024 Fungu s ident ified in [place] [facility] by Cultu re fungus identified in specimen by fungus stain No yeast or hyphae seen Not Available Not Available 12:06:28 02/26/20 24 03/28/2024 Fungu s ident ified in [place] [facility] by Cultu re interpretati on and review of laboratory results Normal Not Available Not Available 01/24 12:06:28 02/26/20 24 03/02/2024 Bacte alno ident ified in [place] [facility] by Anaer obe cultu re microorganis m identified in specimen by culture No anaero bic organi sms isolat ed Not Available Not Available 12:06:28 02/26/20 24 03/02/2024 Bacte alon ident ified in [place] [facility] by Anaer obe cultu re interpretati [...] Not Available 02/15/2025 12:06:27 02/26/20 24 02/26/2024 [facility] [employer] [facility] 1999 panel - Serum or Plasm a carbon dioxide, total [moles/volum e] in serum or plasma 24 mmol/ L low: 22mmol /Lhigh : 29mmol /L Not Available Not Available 02/15/2025 12:06:27 02/26/20 24 02/26/2024 [facility] [employer] [place] 1999 panel - Serum or Plasm a glucose [mass/volume ] in serum or plasma 96 mg/dL low: 70mg/d Lhigh: 115mg/ dL Not Available Not Available 02/15/2025 12:06:27 02/26/20 24 02/26/2024 [facility] [employer] [facility] 1999 panel - Serum or Plasm a calcium [moles/volum e] in serum or plasma 10.8 mg/dL low: 8.4mg/ dLhigh : 10.2mg /dL high Not Available Not Available 02/15/2025 12:06:27 02/26/20 24 02/26/2024 [facility] [employer] [facility] 1999 panel - Serum or Plasm a protein [mass/volume ] in serum or plasma 7.8 g/dL low: 6g/dLh igh: 8.3g/d L Not Available Not Available 02/15/2025 12:06:27 02/26/20 24 02/26/2024 [facility] katherine [employer] [facility] 1999 panel - Serum or Plasm a albumin [mass/volume ] in serum or plasma by bromocresol green (bcg) dye binding method 4.1 g/dL low: 3.4g/d Lhigh: 5g/dL Not Available Not Available 02/15/2025 12:06:27 02/26/20 24 02/26/2024 [facility] [employer] [facility] 1999 panel - Serum or Plasm a bilirubin.to vidal [mass/volume ] in serum or plasma 0.2 mg/dL low: 0.2mg/ dLhigh : 1.2mg/ dL Not Available Not Available 02/15/2025 12:06:27 02/26/20 24 02/26/2024 [facility] [employer] [facility] [employer] [place] 2000 panel - Serum or Plasm [...] Not Available 02/15/2025 12:06:28 02/27/20 24 02/27/2024 [facility] 1999 panel - Serum or Plasm a carbon dioxide, total [moles/volum e] in serum or plasma 26 mmol/ L low: 22mmol /Lhigh : 29mmol /L Not Available Not Available 02/15/2025 12:06:28 02/27/20 24 02/27/2024 [facility] 1999 panel - Serum or Plasm a glucose [mass/volume ] in serum or plasma 109 mg/dL low: 70mg/d Lhigh: 115mg/ dL Not Available Not Available 02/15/2025 12:06:28 02/27/20 24 02/27/2024 [facility] 1999 panel - Serum or Plasm a calcium [moles/volum e] in serum or plasma 8.8 mg/dL low: 8.4mg/ dLhigh : 10.2mg /dL Not Available Not Available 02/15/2025 12:06:28 02/27/20 24 02/27/2024 [facility] 1999 panel - Serum or Plasm a protein [mass/volume ] in serum or plasma 5.8 g/dL low: 6g/dLh igh: 8.3g/d L low Not Available Not Available 02/15/2025 12:06:28 02/27/20 24 02/27/2024 [facility] 1999 panel - Serum or Plasm a albumin [mass/volume ] in serum or plasma by bromocresol green (bcg) dye binding method 3.1 g/dL low: 3.4g/d Lhigh: 5g/dL low Not Available Not Available 02/15/2025 12:06:28 02/27/20 24 02/27/2024 [place] [address] panel - Serum or Plasm a bilirubin.to [...] Not Available 02/15/2025 12:06:28 02/27/20 24 02/27/2024 [facility] katherine metab olic 1999 [...] Not Available 02/15/2025 12:06:28 02/27/20 24 02/27/2024 [facility] [employer] katherine metab olic 1999 [...] Not Available Not Available 02/15/2025 12:06:28 02/27/2002/27/2024 [facility] 2000 panel - Serum [...] Author izing Provid er: Sara Dias MD [facility] mayra: 2023 07:13 PM Orderi ng Locati on: [facility] Early Admiss ion Unit Receiv ed: 2023 [...] biops y repor t pathologist location at [facility] Not Available Not Available 12:06:28 02/28/20 24 03/02/2024 [facility] Path[facility] logy biops y repor t service comment The perfor nora silvaist ics of all immuno histoc hemica l and indire ct immuno fluore scence stains (if any) cited in this report were determ ined by the Histop byron barajas of [facility]. Some of these tests were develo [...] as qualif ied to perfor m [facility] al yoon barajas obi castanon. [...] al Not Available Not Available 12:06:28 02/29/2002/29/2024 [facility] 1999 panel - Serum or Plasm a urea nitrogen [mass/volume ] in serum or plasma 13 mg/dL low: 7mg/dL high: 26mg/d L Not Available Not Available 02/15/2025 12:06:28 02/29/20 24 02/29/2024 [facility] 1999 panel - Serum or Plasm a creatinine [mass/volume ] in serum or plasma 0.81 mg/dL low: 0.71mg /dLhig h: 1.16mg /dL Not Available Not Available 02/15/2025 12:06:28 02/29/20 24 02/29/2024 [facility] 1999 panel - Serum or Plasm a sodium [moles/volum e] in serum or plasma 139 mmol/ L low: 136mmo l/Lhig h: 145mmo l/L Not Available Not Available 02/15/2025 12:06:28 02/29/20 24 02/29/2024 [facility] 1999 panel - Serum or Plasm a potassium [moles/volum e] in serum or plasma 4.3 mmol/ L low: 3.5mmo l/Lhig h: 4.5mmo l/L Not Available Not Available 02/15/2025 12:06:28 02/29/20 24 02/29/2024 [facility] 1999 panel - Serum or Plasm a chloride [moles/volum e] in serum or plasma 106 mmol/ L low: 98mmol /Lhigh : 107mmo l/L Not Available Not Available 02/15/2025 12:06:28 02/29/20 24 02/29/2024 [facility] 1999 panel - Serum or Plasm a carbon dioxide, total [moles/volum e] in serum or plasma 28 mmol/ L low: 22mmol /Lhigh : 29mmol /L Not Available Not Available 02/15/2025 12:06:28 02/29/20 24 02/29/2024 [facility] 1999 panel - Serum or [...] Not Available 02/15/2025 12:06:28 02/29/20 24 02/29/2024 [facility] 1999 panel - Serum or [...] Not Available 02/15/2025 12:06:28 02/29/20 24 02/29/2024 [facility] 2000 panel - Serum or Plasm [...] ===== ===== ===== === Not Available [facility] ([facility]) [address] [facility], [place], [address], 04/05/2024 15:11:38 03/30/20 24 04/05/2024 COMPL IANCE DRUG ARMANDO SIS, UR pdf . Not Available [facility] ([facility]) [address] [facility], [place], [address], 04/05/2024 15:11:38 01/03/20 25 01/09/2025 COMPL IANCE [...] === Not Available [facility] ([facility]) [address] [facility], [place], [address], 01/09/2025 17:10:36 01/03/20 25 01/09/2025 COMPL IANCE DRUG ARMANDO SIS, UR pdf . Not Available [facility] ([facility]) [address] [facility], [place], [address], 01/09/2025 17:10:36 01/13/20 24 01/13/2024 XR, chest , 2 view No observ ation record ed. [address], [place], [address], 01/17/2024 04:42:01 08/05/19 25 08/05/2024 XR, hip, unila teral No observ ation record ed. [address], [place], [address], 08/15/2024 13:00:05 08/05/19 25 08/05/2024 CT, lumba r spine , w/o contr ast No observ ation record ed. [address], [place], [address], 08/15/2024 13:00:23 08/06/19 25 08/05/2024 CT, pelvi s, w/o contr ast No observ ation record ed. [address], [place], [address], 08/15/2024 13:00:59 01/02/20 25 01/01/2025 XR, ribs, unila teral No observ ation record ed. [address], [address], 01/22/2025 09:45:17 Result Notes None recorded. Problems Name Problem SNOMED Code Status Onset Date Resolution Date Notes Provider Name and Address Organization Details Recorded Time Primary fibromyal ruy syndrome 58341711 Active Not Available [facility] 3 10:02:13 Chronic obstructi ve pulmonary disease 23434728 Active Not Available [facility] 3 10:02:13 Dental abscess 569939597 Active Not Available [facility] 3 10:02:13 Insomnia 035150875 Active Not Available [facility] 3 10:02:13 Fracture of shaft of femur 02860098 Active Not Available [facility] 3 10:02:13 Fracture of femur 97292913 Active Not Available [facility] 3 10:02:13 Abscess 198479135 Active Not Available [facility] 3 10:02:13 Nausea 856845494 Active Not Available [facility] 3 10:02:13 Solitary nodule of lung 816654361 Active Not Available [facility] 3 10:02:13 Pain in left lower limb 922293293 Active Not Available [facility] 3 10:02:13 Hernia of abdominal cavity 52765311 Active Not Available [facility] 3 10:02:13 Low back pain 530761487 Active Not Available [facility] 3 10:02:13 Tobacco user 928871463 Active Not Available [facility] 3 10:02:13 Chronic pancreati tis 290593108 Active [facility] 3 10:02:13 Administr ation of influenza vaccine Active 2015 Not Available [facility] 3 10:02:13 Chronic hepatitis C 358519339 Active 2015 successfu lly treated . in 2017 ... Not Available [facility] 3 10:02:13 Depressiv e disorder 43862736 Active 2015 Not Available [facility] 3 10:02:13 Benign prostatic hyperplas ia 739127523 Active 2016 [facility] Available [facility] 3 10:02:13 Dental caries 49597820 Active 2016 Not Available [facility] 3 10:02:12 Gastroeso phageal reflux disease 395867182 Active 2016 Not Available [facility] 3 10:02:13 Splenomeg john 94647535 Active 2017 Not Available [facility] 3 10:02:13 Left flank pain 118512971 Active 2017 Not Available [facility] 3 10:02:13 Disorder of stomach 04544941 Active 2017 Not Available [facility] 3 10:02:13 Pain of left hip joint 74488212296 9100 Active 2017 Not Available [facility] 3 10:02:13 Steatotic liver disease 991596182 Active 2017 sees GI : they gave him a diet , [facility] [place] Not Available [facility] 3 10:02:13 Irritable bowel syndrome with diarrhea 116653363 Active 2018 Not Available [facility] 3 10:02:13 Anemia 241792683 Active 2018 Not Available [facility] 3 10:02:13 Screening for malignant neoplasm of prostate Active 2018 Not Available [facility] 3 10:02:13 Chronic prostatit is 50357115 Active 2018 Not Available [facility] 3 10:02:13 Myocardia l infarctio n 26854756 Active 2018 2 stents placed , balloon angioplas ty done.STEM I. bent stent unable to remove , a balloon placed 05/29/21 . Not Available [facility] 3 10:02:13 Upper respirato ry infection 62604208 Active 2019 Not Available [facility] 3 10:02:12 Schizophr enia 59012014 Active 2019 getting a new Psych doctor : Des[facility]e [facility] in [facility] Not Available [facility] 3 10:02:13 Injury of left hip region 52409690645 234887 Active 2020 Not Available [facility] 3 10:02:13 Hyperlipi demia 68530973 Active 2020 [facility] Available [facility] 3 10:02:13 Injury of left shoulder 63296910799 492997 Active 2021 Not Available [facility] 3 10:02:13 History of hematuria 000545264 Active 2021 [facility] Available [facility] 3 10:02:12 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 327633372 Active 2021 Not Available [facility] 3 10:02:13 Degenerat ion of lumbar intervert ebral disc 95648837 Active 2021 Not Available [facility] 3 10:02:13 Full thickness rotator cuff tear 031849768 Active 2021 Not Available [facility] 3 10:02:13 Serum sodium level outside reference range 817234251 Active 2021 Not Available [facility] 3 10:02:13 Hyperglyc emia 41835002 Active 2021 Not Available [facility] 3 10:02:13 Coronary atheroscl erosis 199497814 Active 2021 Not Available [facility] 3 10:02:13 Tobacco dependenc e syndrome 26043411 Active 2022 Seymour Cunningham MD Attn: Accounting ,[address] [place], [address] , [place] [facility] 3 15:32:53 Anxiety 67124627 Active 2022 Seymour Cunningham MD Attn: Accounting ,[address] [facility], [place], [address] , [place] [facility] 3 17:16:36 Diverticu losis of colon 416009341 Active 2023 Seymour Cunningham MD Attn: Accounting ,[address] [facility], [place], [address] , [place] [facility] 4 16:33:07 Postopera tive pain 609918763 Active 2023 Seymour Cunningham MD Attn: Accounting ,[address] [facility], [place], [address] , [facility] 4 11:24:23 Injury of finger 09654921 Active 2023 Seymour Cunningham MD Attn: Accounting ,[address] [facility], [place], [address] , [facility] 4 16:55:19 Medicatio n monitorin g Active 2023 Seymour Cunningham MD Attn: Accounting ,[address] [facility], [place], [address] , [facility] 4 16:57:18 Rib pain 453390502 Active 2024 Seymour Cunningham MD Attn: Accounting ,[address] [place], [address] , [facility] 5 17:52:12 Notes:Some problems listed i n Document: #[id number] could not be added to this patient's chart. Please review this document and add these problems to the patient's chart manually as needed. Problem Notes None recorded. Procedures Surgical History Date Name Laterality Status Provider Name and Address Organization Details Recorded Time 1 Heart Surgery completed Nettie Younger MA [place] [facility] 06/10/2021 12:05:02 6 Ercp duct stent placement completed Romulo Aaron DO [address] [place], [address], [facility] 06/07/2019 15:28:01 Unlisted px lungs & pleura completed Romulo Aaron DO [address], [place], [address], [facility] 06/07/2019 15:28:56 closed reduction of fracture of left femur and internal fixation using dynamic hip screw plate completed Romulo Aaron DO [address], [place], [address], [facility] 06/07/2019 15:31:14 Eye Surgery completed Tereza Hernandez MA [place] [facility] 07/31/2014 15:32:03 Imaging Results None [...] tablet TAKE 2 TABLETS BY MOUTH DAILY 2024 active Not Available Not Available Not Avai lable aspirin 325 mg tablet,de layed release 05/19 [...] Updated DateTime 3 190.5 cm 25.4 kg/m2 15364.2 5 g 98.1 [degF] 95 % 109 /min 102/64 mm[Hg] Alla Bernal MA [facility] 3 15:14:43 Date Recorded Body height Body mass index (BMI) Body weight Heart rate Oxygen saturation Systolic And Diastolic Provider Name and Address Organization Details Last Updated DateTime 5 190.5 cm 18.5 kg/m2 62446.6 7 g 90 /min 98 % 119/72 mm[Hg] Brittni Mar MA [facility] 5 17:09:57 Date Recorded Body height Body mass index (BMI) Body weight Heart rate Oxygen saturation Systolic And Diastolic Provider Name and Address Organization Details Last Updated DateTime 4 190.5 cm 22.1 kg/m2 87261.8 5 g 101 /min 96 % 130/68 mm[Hg] Jane Alcantara MA [facility] 4 16:08:58 Date Recorded Body height Oxygen saturation Body mass index (BMI) Body weight Heart rate Systolic And Diastolic Provider Name and Address Organization Details Last Updated DateTime 4 190.5 cm 96 % 22.1 kg/m2 03317.8 5 g 97 /min 104/56 mm[Hg] Jane Alcantara MA [facility] 4 16:06:36 Date Recorded Body height Body mass index (BMI) Body weight Body temperature Oxygen saturation Heart rate Respiratory rate Systolic And Diastolic Provider Name and Address Organization Details Last Updated DateTime 5 190.5 cm 21.2 kg/m2 79618.3 4 g 97 [degF] 97 % 75 /min 18 /min 120/74 mm[Hg] Nettie Younger MA [facility] 5 13:52:01 Social History Question Answer Notes LastModified by Organizat ion Details LastModified Time Tobacco Smoking Status Current Every Day Smoker MINDY Campoverde, [facility] 07/31/2014 15:32:03 Do You Have An Advance [...] Do You Have A Medical Power Of Sports Development Officer? 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 [id number] Information not available 11/18/2020 Do you have [...] Y Acid Reflux (GERD) Y Heart Attack (AL) Y Kidney or Bladder Problems Y Depression Y GI Problems Y Immunizations Vaccine Type Date Status Note Provider Nam e and Address Organization Details Recorded Time SARS-COV-2 (COVID-19) vaccine, UNSPECIFIED 1 completed Not Available [facility] 08/19/2022 10:02:14 SARS-COV-2 (COVID-19) vaccine, UNSPECIFIED 1 completed Not Available [facility] [facility] 10:02:14 COVID-19, mRNA, LNP-S, PF, 100 mcg/0.5mL dose or 50 mcg/0.25mL dose 1 completed Not Available [facility] 08/19/2022 10:02:14 SARS-COV-2 (COVID-19) vaccine, UNSPECIFIED 2 completed Not Available [facility] 08/19/2022 10:02:14 Influenza, split virus, quadrivalent, preservative 6 completed Not Available [facility] 08/12/2019 02:44:54 Influenza, split virus, quadrivalent, PF 8 completed Not Available [facility] 04/05/2025 13:39:39 Influenza, MDCK, quadrivalent, PF 2 completed Not Available [facility] 04/05/2025 13:39:39 pneumococcal polysaccharide PPV23 2 completed Not Available [facility] 04/05/2025 13:39:39 COVID-19, mRNA, LNP-S, PF, marie-sucrose, 30 mcg/0.3 mL 4 completed Not Available [facility] 04/05/2025 13:39:39 Influenza, MDCK, quadrivalent, PF 4 completed Not Available [facility] 04/05/2025 13:39:39 RSV, recombinant, protein subunit RSVpreF, adjuvant reconstituted, 0.5 mL, PF 4 completed Not Available [facility] 04/05/2025 13:39:39 Influenza, split virus, quadrivalent, preservative 7 completed Not Available [facility] 08/12/2019 02:50:28 Influenza, split virus, quadrivalent, preservative 9 completed Not Available [facility] 08/12/2019 02:41:29 Influenza, split virus, quadrivalent, preservative 0 completed Nettie Younger [place], [place] [facility] 05/22/2020 12:45:17 Influenza, split virus, quadrivalent, preservative 1 completed Rachelle Tiw[place] [facility] 05/16/2021 12:37:11 Tdap 2 completed Chevy Siu [place], [place] [facility] 11/28/2021 13:38:34 Influenza, split virus, quadrivalent, preservative 5 completed Not Available [facility] 08/12/2019 02:32:11 Influenza, split virus, trivalent, preservative 5 completed Not Available [facility] 08/12/2019 02:45:32 Past Encounters Encounter ID Performer Location Encounter Start Date Encounter Closed Date Diagnosis/Indication Diagnosis SNOMED-CT Code Diagnosis ICD10 Code Diagnosis IMO Codes Diagnosis Note [id number] SALVATORE Andrade (Adult Med) [address] [place] [address] [phone] [id number] 07/31/2014 15:00:16 07/31/2014 15:39:21 Low back pain 081660902 Tobacco user [id number] Chronic pancreatitis 877395396 Active or passive immunization 030401606 [id number] SALVATORE Andrade (Adult Med) [address] [place] [address] [phone] 0 10/02/2014 14:54:30 10/02/2014 15:58:08 Chronic pancreatitis 878503837 Active or passive immunization 784643901 Low back pain 778351077 Tobacco user 897472086 [id number] SALVATORE Andrade (Adult Med) [address] [place] [address] [phone] 0 12/04/2014 13:17:23 12/04/2014 17:04:08 Chronic pancreatitis 866443571 Tobacco user 481059395 Low back pain 781347500 [id number] SALVATORE Andrade (Adult Med) [address] [place] [address] [id number] 0 02/13/2015 11:47:59 02/13/2015 13:43:14 Chronic pancreatitis 314422744 stent removed [address] Aydin Mcdermott Low back pain 596238151 Tobacco user 957046288 Primary fi bromyalgia syndrome 02794537 Adult [facility] th examination 310449411 [id number] SALVATORE Andrade (Adult Med) [address] [place] [address] [phone] 0 04/19/2015 11:57:35 04/19/2015 13:25:23 Adult health examination [id number] Chronic pancreatitis 661443387 stent removed [address] Aydin Mcdermott Low back pain 522067917 Primary fi bromyalgia syndrome 96953541 Tobacco user 237153390 Chronic ob structive pulmonary disease 62160247 [id number] SALVATORE Andrade (Adult Med) [address] [place] [address] 35209-874 0 06/17/2015 11:16:21 06/17/2015 12:01:16 Administration of influenza vaccine 01726151 Z23 Chronic ob structive pulmonary disease 35379457 J44.9 Chronic pancreatitis 235 278092 K86.1 stent removed [address] Aydin Mcdermott Low back pain 255603436 M54.5 Primary fi bromyalgia syndrome 14332567 M79.7 Tobacco user 276899436 Z 72.0 Insomnia 457366385 G47.0 0 [id number] SALVATORE Andrade (Adult Med) [address] [place] [address] [id number] 0 07/25/2015 15:28:06 07/25/2015 16:37:37 Fracture of shaft of femur 47060249 S72.302A [id number] SALVATORE Andrade (Adult Med) [address] [place] [address] [id number] 0 08/19/2015 14:26:47 08/19/2015 18:06:42 Fracture of femur 31766093 S72.92XA hilda in place Abscess 398003280 L02.91 teeth Nausea 827366198 R11.0 [id number] SALVATORE Andrade (Adult Med) [address] [place] [address] [id number] 0 08/30/2015 13:33:28 08/30/2015 15:23:23 Removal of mercedez 24481890 Z48.02 Chronic ob structive pulmonary disease 70273151 J44.9 Chronic pancreatitis 235 903364 K86.1 stent removed [address] Aydin Mcdermott Fracture of femur 568806 00 S72.92XA hilda in place Insomnia 399470275 G47.0 0 Low back pain 958832775 M54.5 Tobacco user 719902435 Z 72.0 [id number] SALVATORE Andrade (Adult Med) [address] [place] [address] 73319-854 0 09/24/2015 15:00:37 09/24/2015 15:29:31 Chronic obstructive pulmonary disease 34415417 J44.9 Fracture of femur 784967 00 [address] in place Insomnia 512227634 G47.0 0 Low back pain 814369438 M54.5 Primary fi bromyalgia syndrome 61579462 M79.7 Tobacco user 217275317 Z 72.0 Solitary n odule of lung 133508920 R91.1 4 mm left upper lung [id number] SALVATORE Andrade (Adult Med) [address] [place] [address] [id number] 0 11/26/2015 13:58:59 11/26/2015 14:26:15 Chronic obstructive pulmonary disease 95652764 J44.9 Chronic pancreatitis 235 877301 K86.1 stent removed [address] Aydin Mcdermott Insomnia 225523154 G47.0 0 Low back pain 741414719 M54.5 Primary fi bromyalgia syndrome 36647273 M79.7 Solitary n odule of lung 971298520 R91.1 4 mm left upper lung Tobacco user 020594469 Z 72.0 Dental abscess 792797356 K04.7 [id number] MD Tobin Todd (Adult Med) [address] [place] [address] [id number] 0 01/23/2016 14:38:11 01/23/2016 15:33:03 Fracture of shaft of femur 64635087 S72.302A Insomnia 332409980 G47.0 0 Low back pain 488372139 M54.5 Primary fi bromyalgia syndrome 64113732 M79.7 Tobacco user 003630565 Z 72.0 [id number] MD Tobin Todd (Adult Med) [address] [place] [address] [id number] 0 03/19/2016 14:03:39 03/19/2016 14:49:41 Low back pain 799250857 M54.5 Pain in le ft lower limb 927592279 M79.519 [id number] MD Tobin Todd (Adult Med) [address] [place] [address] [phone] 0 05/19/2016 15:00:30 05/19/2016 15:53:48 Chronic pancreatitis 421596748 K86.1 stent removed [address] Aydin Mcdermott Low back pain 938268468 M54.5 Chronic ob structive pulmonary disease 63671298 J44.9 Tobacco user 786532058 Z 72.0 Administra tion of influenza vaccine 19097970 Z23 [id number] MD Tobin Todd (Adult Med) [address] [place] [address] [phone] 0 07/14/2016 14:31:06 07/14/2016 15:59:20 Dental abscess 846895003 K04.7 Low back pain 597850671 M54.5 Chronic pancreatitis 235 327699 K86.1 stent removed [address] Aydin Mcdermott Chronic ob structive pulmonary disease 20478465 J44.9 Insomnia 310132792 G47.0 0 Tobacco user 442830620 Z 72.0 Chronic hepatitis C 1283 80001 B18.2 Pain in le ft lower limb 409853090 M79.605 Depressive disorder 3548 9007 F32.89 [id number] Dejon Woods MD [facility] (Adult Med) [address] [place] [address] 11588-991 0 09/15/2016 14:01:19 09/15/2016 14:28:10 Chronic obstructive pulmonary disease 50190391 J44.9 Low back pain 718101018 M54.5 Tobacco user 164880774 Z 72.0 [id number] MD Tobin Todd (Adult Med) [address] [place] [address] [id number] 0 11/13/2016 14:01:06 11/13/2016 14:34:56 Chronic pancreatitis 556448626 K86.1 stent removed [address] Aydin Mcdermott Chronic ob structive pulmonary disease 60156646 J44.9 Tobacco user 475686167 Z 72.0 Chronic hepatitis C 1283 54130 B18.2 Depressive disorder 3548 9007 F32.89 Primary fi bromyalgia syndrome 59723524 M79.7 Dental abscess 766522775 K04.7 Low back pain 666259372 M54.5 [id number] MD Tobin Todd (Adult Med) [address] [place] [address] 82576-291 0 01/13/2017 09:49:50 01/14/2017 10:08:12 Fracture of shaft of femur 13715547 S72.302A Low back pain 568579805 M54.5 [id number] MD Tobin Todd (Adult Med) [address] [place] [address] 67637-737 0 03/17/2017 10:38:01 03/17/2017 11:38:23 Fracture of shaft of femur 59234807 S72.302A Benign pro static hyperplasia 805831875 N40.1 Dental abscess 443030008 K04.7 Low back pain 105350918 M54.5 [id number] Dejon Woods MD [facility] (Adult Med) [address] [place] [address] 31538-171 0 05/19/2017 11:27:57 05/19/2017 12:59:25 Pain in left lower limb 117245811 M79.605 Chronic ob structive pulmonary disease 84195483 J44.9 Tobacco user 647245314 Z 72.0 Dental caries 60976570 K 02.9 Low back pain 006160794 M54.5 Administra tion of influenza vaccine 78553879 Z23 Gastroesop hageal reflux disease 960472792 K21.0 Depressive disorder 3548 9007 F32.89 Dental abscess 823401547 K04.7 [id number] Dejon Woods MD [facility] (Adult Med) [address] [place] [address] [id number] 0 07/14/2017 10:50:11 07/14/2017 11:56:18 Dental caries 06734262 K02.9 Low back pain 915163865 M54.5 Insomnia 517509256 G47.0 0 Primary fi bromyalgia syndrome 95252432 M79.7 Chronic ob structive pulmonary disease 64596529 J44.9 Tobacco user 576442835 Z 72.0 Gastroesop hageal reflux disease 539980450 K21.0 Depressive disorder 3548 9007 F32.89 Dental abscess 290698745 K04.7 [id number] Dejon Woods MD [facility] (Adult Med) [address] [place] [address] [id number] 0 10/12/2017 10:59:14 10/12/2017 12:56:47 Dental caries 55337781 K02.9 Low back pain 924522056 M54.5 Nausea 095098663 R11.0 [id number] Dejon Woods MD [facility] (Adult Med) [address] [place] [address] 88913-195 0 12/13/2017 09:52:42 12/14/2017 09:10:40 Splenomegaly 14446787 R16.1 Benign pro static hyperplasia 267483534 N40.1 Left flank pain 12166703 9 R10.9 Chronic ob structive pulmonary disease 96326613 J44.9 Low back pain 293971033 M54.5 Tobacco user 447062090 Z 72.0 Primary fi bromyalgia syndrome 35325070 M79.7 [id number] Dejon Woods MD [facility] (Adult Med) [address] [place] [address] [phone] 0 01/12/2018 11:14:21 01/12/2018 12:55:13 Pain in left lower limb 705746460 M79.605 Disorder of stomach 2938 4001 K31.9 Low back pain 987686997 M54.5 Primary fi bromyalgia syndrome 43840909 M79.7 [id number] [facility] [address] [place] [address] 96052-429 0 03/14/2018 10:10:02 03/16/2018 09:40:13 Dental caries 67080372 K02.9 Low back pain 296119300 M54.5 Primary fi bromyalgia syndrome 92050482 M79.7 Gastroesop hageal reflux disease 834079572 K21.0 Benign pro static hyperplasia 489374610 N40.1 Depressive disorder 3548 9007 F32.89 Tobacco user 274856094 Z 72.0 Chronic ob structive pulmonary disease 01965805 J44.9 Insomnia 499134368 G47.0 0 Chronic pancreatitis 235 784163 K86.1 stent removed [address] Aydin Mcdermott [id number] MD Tobin Todd (Adult Med) [address] [place] [address] [phone] 0 06/14/2018 09:28:09 06/14/2018 10:42:12 Dental caries 39999206 K02.9 Pain of le ft hip joint 0291438531 79470 M25.552 Chronic ob structive pulmonary disease 00153337 J44.9 Tobacco user 582150524 Z 72.0 Low back pain 412387794 M54.5 Gastroesop hageal reflux disease 562687306 K21.0 Benign pro static hyperplasia 489451182 N40.1 Depressive disorder 3548 9007 F32.89 Insomnia 833822810 G47.0 0 Primary fi bromyalgia syndrome 61248094 M79.7 Dental abscess 697252601 K04.7 [id number] MD Tobin Todd (Adult Med) [address] [place] [address] 84708-978 0 08/16/2018 13:42:54 08/17/2018 14:22:18 Low back pain 284860650 M54.5 Dental abscess 234342929 K04.7 Dental caries 17528381 K 02.9 Steatotic liver disease 553729006 K76.0 Pain of le ft hip joint 6427016299 05038 M25.552 Gastroesop hageal reflux disease 400061338 K21.0 Depressive disorder 3548 9007 F32.89 Tobacco user 213698783 Z 72.0 Chronic ob structive pulmonary disease 32599376 J44.9 Insomnia 952557745 G47.0 0 Chronic pancreatitis 235 122576 K86.1 stent removed [address] Aydin Mcdermott Primary fi bromyalgia syndrome 09552975 M79.7 Solitary n odule of lung 151258939 R91.1 4 mm left upper lung [id number] [facility] [address] [place] [address] 18168-137 0 10/12/2018 11:53:36 10/13/2018 12:01:10 Steatotic liver disease 265401713 K76.0 Irritable bowel syndrome with diarrhea 510049939 K58.0 Tobacco user 064074688 Z 72.0 Low back pain 516263590 M54.5 Chronic pancreatitis 235 434678 K86.1 stent removed [address] Aydin Mcdermott Gastroesop hageal reflux disease 295743119 K21.0 Anemia 175902836 D64.9 Screening for malignant neoplasm of prostate 821745967 Z12.5 Chronic prostatitis 1989 5009 N41.1 [id number] MD Tobin Todd (Adult Med) [address] [place] [address] 55082-114 0 12/12/2018 12:56:27 12/12/2018 14:16:40 Tobacco user 345686465 Z72.0 Chronic ob structive pulmonary disease 72503773 J44.9 Low back pain 376594036 M54.5 Myocardial infarction 22 507021 I21.9 Insomnia 867282909 G47.0 0 Gastroesop hageal reflux disease 616189816 K21.0 Steatotic liver disease 785201370 K76.0 Primary fi bromyalgia syndrome 11582884 M79.7 Chronic pancreatitis 235 491997 K86.1 stent removed [address] Aydin Mcdermott [id number] Dejon Woods MD [facility] (Adult Med) [address] [place] [address] 80385-784 0 01/16/2019 11:45:22 01/17/2019 08:37:31 Myocardial infarction 06401202 I21.9 Gastroesop hageal reflux disease 617698130 K21.0 Pain in le ft lower limb 326000994 M79.605 Low back pain 334251310 M54.5 Steatotic liver disease 455376914 K76.0 Irritable bowel syndrome with diarrhea 370645410 K58.0 Benign pro static hyperplasia 835818336 N40.1 Depressive disorder 3548 9007 F32.89 Chronic ob structive pulmonary disease 45708115 J44.9 Insomnia 722316497 G47.0 0 Chronic pancreatitis 235 673645 K86.1 stent removed [address] Aydin Mcdermott [id number] Dejon Woods MD [facility] (Adult Med) [address] [place] [address] 87089-341 0 02/15/2019 10:09:25 02/15/2019 11:45:47 Low back pain 084319872 M54.5 Dental abscess 686192737 K04.7 Pain of le ft hip joint 1045823471 44621 M25.552 Myocardial infarction 22 436208 I21.9 Irritable bowel syndrome with diarrhea 527415451 K58.0 Steatotic liver disease 404439228 K76.0 Gastroesop hageal reflux disease 557130565 K21.0 Depressive disorder 3548 9007 F32.89 Tobacco user 860648565 Z 72.0 Chronic ob structive pulmonary disease 19628058 J44.9 Insomnia 265378422 G47.0 0 Chronic pancreatitis 235 394111 K86.1 stent removed [address] Aydin Ahmed Primary fi bromyalgia syndrome 45155576 M79.7 [id number] Dejon Woods MD [facility] (Adult Med) [address] [place] [address] 55529-629 0 03/20/2019 13:52:01 03/21/2019 08:20:36 Myocardial infarction 46196105 I21.9 Steatotic liver disease 504737021 K76.0 Depressive disorder 3548 9007 F32.89 Chronic ob structive pulmonary disease 29244188 J44.9 Insomnia 930466191 G47.0 0 Chronic pancreatitis 235 829629 K86.1 stent removed [address] Aydin Mcdermott Low back pain 691924114 M54.5 Primary fi bromyalgia syndrome 37481986 M79.7 Tobacco user 549637831 Z 72.0 Irritable bowel syndrome with diarrhea 746908499 K58.0 Gastroesop hageal reflux disease 757141052 K21.0 [id number] Dejon Woods MD [facility] (Adult Med) [address] [place] [address] 23452-067 0 04/20/2019 10:33:33 04/20/2019 11:54:49 Administration of influenza vaccine 60717062 Z23 Low back pain 743887711 M54.5 Pain of le ft hip joint 1367230993 88821 M25.552 Tobacco user 825867385 Z 72.0 [id number] Dejon Woods MD [facility] (Adult Med) [address] [place] [address] 91414-214 0 05/24/2019 10:10:05 05/24/2019 11:37:41 Low back pain 739169179 M54.5 Dental abscess 357817979 K04.7 Patient states he is trying to schedule a dentist appointmen t PHI. Chronic prostatitis 1989 5009 N41.1 Patient states he was able to schedule an appointmen t with a specialist for Jun 02, 2019. [id number] Romulo Aaron [facility] [address] [place] [address] [phone] 2 06/07/2019 14:41:27 06/09/2019 16:10:50 Chronic hepatitis C 051810655 B18.2 Treated and SVR ? Steatotic liver disease 908662949 K76.0 Chronic pancreatitis 235 439486 K86.1 Based on old data. Not sure if this is an active problem. Gastroesop hageal reflux disease 645981887 K21.9 Has Dyspepsia may be cause of the pain. will try a PPI. Depressive disorder 3548 7 F32.9 Primary fi bromyalgia syndrome 84605147 M79.7 Benign pro static hyperplasia 164625743 N40.0 Gastroesop hageal reflux disease without esophagitis 580659142 K21.9 [id number] MD Tobin Todd (Adult Med) [address] [place] [address] 18986-715 0 06/28/2019 09:18:50 06/28/2019 11:17:34 Low back pain 388178216 M54.5 Chronic low back pain 27 7601929 M54.5 Pain of le ft hip joint 6859831615 96331 M25.552 Tobacco user 204428494 Z 72.0 Benign pro static hyperplasia 334872583 N40.1 Chronic ob structive pulmonary disease 45295277 J44.9 Chronic pancreatitis 235 918249 K86.1 stent removed [address] Aydin Mcdermott Depressive disorder 3547 F32.89 Gastroesop hageal reflux disease 565032006 K21.0 Insomnia 879927140 G47.0 0 Irritable bowel syndrome with diarrhea 911706226 K58.0 Myocardial infarction 22 051210 I21.9 Primary fi bromyalgia syndrome 05432151 M79.7 Steatotic liver disease 215436757 K76.0 Splenomegaly 86087004 R1 6.1 [id number] MD Tobin Todd (Adult Med) [address] [place] [address] 13657-409 0 08/31/2019 13:48:02 08/31/2019 14:58:43 Low back pain 886559178 M54.5 Gastroesop hageal reflux disease 847069254 K21.0 Benign pro static hyperplasia 734293859 N40.1 Chronic ob structive pulmonary disease 40024843 J44.9 Depressive disorder 3549006 F32.89 Irritable bowel syndrome with diarrhea 555159490 K58.0 Tobacco user 311397398 Z 72.0 Steatotic liver disease 310452402 K76.0 [id number] MD Tobin Todd (Adult Med) [address] [place] [address] 58452-153 0 10/09/2019 12:04:33 10/09/2019 12:53:12 Low back pain 960424587 M54.5 Tobacco user 561669496 Z 72.0 Chronic ob structive pulmonary disease 85859683 J44.9 Chronic pancreatitis 235 553827 K86.1 stent removed [address] Aydin Mcdermott Depressive disorder 354 9007 F32.89 Gastroesop hageal reflux disease 422455736 K21.0 Insomnia 719931061 G47.0 0 [id number] SALVATORE Andrade (Adult Med) [address] [place] [address] 44541-395 0 11/09/2019 08:54:19 11/16/2019 12:18:39 Low back pain 882135791 M54.5 Chronic ob structive pulmonary disease 91628774 J44.9 Upper resp iratory infection 22327780 J06.9 Pain in le ft lower limb 824514034 M79.605 Gastroesop hageal reflux disease 169779329 K21.0 Irritable bowel syndrome with diarrhea 893459151 K58.0 Primary fi bromyalgia syndrome 29684913 M79.7 Steatotic liver disease 585759691 K76.0 Tobacco user 825630200 Z 72.0 [id number] MD Tobin Todd (Adult Med) [address] [place] [address] 81710-375 0 12/19/2019 08:36:50 12/20/2019 09:44:54 Chronic obstructive pulmonary disease 73885482 J44.9 Depressive disorder 3544 9007 F32.89 Disorder of stomach 2938 4001 K31.9 Gastroesop hageal reflux disease 278535046 K21.0 Insomnia 689159675 G47.0 0 Low back pain 135229873 M54.5 Primary fi bromyalgia syndrome 15777591 M79.7 Steatotic liver disease 841691551 K76.0 Tobacco user 873525505 Z 72.0 Myocardial infarction 22 806275 I21.9 [id number] MD Tobin Todd (Adult Med) [address] [place] [address] 50323-068 0 02/20/2020 09:49:52 02/20/2020 14:41:50 Pain of left hip joint 4033890854 86194 M25.552 both hips bother him but left hip is worse Myocardial infarction 22 062048 I21.9 Anemia 129718906 D64.9 Benign pro static hyperplasia 195948277 N40.1 Chronic ob structive pulmonary disease 91637172 J44.9 Chronic pancreatitis 235 282117 K86.1 stent removed [address] Aydin Mcdermott Depressive disorder 3548 9007 F32.89 Gastroesop hageal reflux disease 424391224 K21.0 Insomnia 953449620 G47.0 0 [id number] Dejon Woods MD [facility] (Adult Med) [address] [place] [address] 02797-649 0 03/22/2020 10:31:05 03/22/2020 16:04:08 Pain of left hip joint 4145604755 18136 M25.552 both hips bother him but left hip is worse Chronic ob structive pulmonary disease 15946750 J44.9 Myocardial infarction 22 109827 I21.9 Upper resp iratory infection 69396293 J06.9 Anemia 651176945 D64.9 Steatotic liver disease 112303586 K76.0 Gastroesop hageal reflux disease 759397843 K21.0 Dental caries 04910116 K 02.9 Benign pro static hyperplasia 236013517 N40.1 Tobacco user 684398099 Z 72.0 Insomnia 446069778 G47.0 0 Chronic pancreatitis 235 777360 K86.1 stent removed [address] Aydin Mcdermott Low back pain 351672128 M54.5 Primary fi bromyalgia syndrome 32698477 M79.7 [id number] Dejon Woods MD [facility] (Adult Med) [address] [place] [address] 31748-721 0 04/25/2020 08:09:27 04/25/2020 16:19:33 Anemia 510752337 D64.9 Chronic ob structive pulmonary disease 39179932 J44.9 Chronic pancreatitis 235 071758 K86.1 stent removed [address] Aydin Mcdermott Gastroesop hageal reflux disease 850448421 K21.9 Insomnia 509690467 G47.0 0 Low back pain 540359185 M54.5 Primary fi bromyalgia syndrome 28566703 M79.7 Steatotic liver disease 855385608 K76.0 Tobacco user 787758306 Z 72.0 Pain in le ft lower limb 156506633 M79.605 Myocardial infarction 22 773300 I21.9 [id number] Dejon Woods MD [facility] (Adult Med) [address] [place] [address] 94841-537 0 05/22/2020 11:24:45 05/23/2020 10:16:41 Upper respiratory infection 26201943 J06.9 Low back pain 266699562 M54.5 Dental caries 67085168 K 02.9 Administra tion of influenza vaccine 90718309 Z23 Chronic hepatitis C 1283 84784 B18.2 Benign pro static hyperplasia 371731166 N40.1 Chronic ob structive pulmonary disease 36022239 J44.9 Depressive disorder 3548 9007 F32.89 Myocardial infarction 22 289558 I21.9 Pain in le ft lower limb 044626403 M79.605 Tobacco user 403759396 Z 72.0 Anemia 491114183 D64.9 Chronic pancreatitis 235 607258 K86.1 stent removed [address] Aydin Mcdermott Gastroesop hageal reflux disease 869415267 K21.9 Insomnia 449018304 G47.0 0 Irritable bowel syndrome with diarrhea 657179314 K58.0 Primary fi bromyalgia syndrome 88316277 M79.7 Steatotic liver disease 018677120 K76.0 [id number] Dejon Woods MD [facility] (Adult Med) [address] [place] [address] 69972-831 0 06/19/2020 08:37:45 06/19/2020 12:36:45 Upper respiratory infection 71308024 J06.9 Low back pain 794499321 M54.5 Chronic ob structive pulmonary disease 71278242 J44.9 Dental abscess 251286033 K04.7 Patient states he is trying to schedule a dentist appointmen t PHI. Dental caries 83596806 K 02.9 Gastroesop hageal reflux disease 095227029 K21.9 Insomnia 748775397 G47.0 0 Steatotic liver disease 985271533 K76.0 Tobacco user 227813660 Z 72.0 Anemia 177120576 D64.9 Primary fi bromyalgia syndrome 78261674 M79.7 [id number] Dejon Woods MD [facility] (Adult Med) [address] [place] [address] 21099-588 0 07/22/2020 08:05:40 07/22/2020 17:35:15 Pain in left lower limb 209572084 M79.605 Dental abscess 675978696 K04.7 Patient states he is trying to schedule a dentist appointmen t PHI. Low back pain 837975185 M54.5 Schizophrenia 47207920 F 20.9 [id number] Dejon Woods MD [facility] (Adult Med) [address] [place] [address] 10593-512 0 08/22/2020 08:12:53 08/22/2020 10:55:02 Injury of left hip region 6437280173 2543462 S79.912A Low back pain 183937720 M54.5 Anemia 860757953 D64.9 Chronic ob structive pulmonary disease 14738181 J44.9 Chronic pancreatitis 235 659729 K86.1 stent removed [address] Aydin Mcdermott Depressive disorder 3548 9007 F32.89 Gastroesop hageal reflux disease 125542733 K21.9 Insomnia 098799167 G47.0 0 Myocardial infarction 22 792206 I21.9 Schizophrenia 23385534 F 20.9 [id number] Dejon Woods MD [facility] (Adult Med) [address] [place] [address] 91473-576 0 09/19/2020 08:31:13 09/19/2020 13:02:55 Gastroesophageal reflux disease 474203764 K21.9 Low back pain 671360219 M54.5 Tobacco user 882580641 Z 72.0 Anemia 998750755 D64.9 Benign pro static hyperplasia 324127539 N40.1 Chronic ob structive pulmonary disease 50331597 J44.9 Chronic pancreatitis 235 688304 K86.1 stent removed [address] Aydin Mcdermott Depressive disorder 3548 9007 F32.89 Insomnia 960720306 G47.0 0 Myocardial infarction 22 523319 I21.9 Schizophrenia 31700911 F 20.9 Steatotic liver disease 622984905 K76.0 [id number] MD Tobin Todd (Adult Med) [address] [place] [address] [phone] 0 10/17/2020 10:17:07 10/17/2020 15:31:24 Low back pain 390042926 M54.5 Anemia 169919409 D64.9 Chronic ob structive pulmonary disease 69112006 J44.9 Chronic pancreatitis 235 383699 K86.1 stent removed [address] Aydin Mcdermott Depressive disorder 3548 9007 F32.89 Gastroesop hageal reflux disease 305723934 K21.9 Insomnia 756040805 G47.0 0 Schizophrenia 43456999 F 20.9 Steatotic liver disease 987950057 K76.0 Tobacco user 862613556 Z 72.0 [id number] MD Tobin Todd (Adult Med) [address] [place] [address] [phone] 0 11/18/2020 08:25:24 11/18/2020 12:43:40 Pain in left lower limb 782365360 M79.605 Dental abscess 196072998 K04.7 Patient states he is trying to schedule a dentist appointmen t PHI. Myocardial infarction 22 687002 I21.9 Anemia 422323254 D64.9 Chronic ob structive pulmonary disease 24065949 J44.9 Chronic pancreatitis 235 421749 K86.1 stent removed [address] Aydin Mcdermott Depressive disorder 3548 9007 F32.89 Gastroesop hageal reflux disease 858924184 K21.9 Insomnia 783600592 G47.0 0 Irritable bowel syndrome with diarrhea 782088038 K58.0 Primary fi bromyalgia syndrome 13186909 M79.7 Schizophrenia 67469850 F 20.9 Steatotic liver disease 858821101 K76.0 Tobacco user 437904402 Z 72.0 [id number] MD Tobin Todd (Adult Med) [address] [place] [address] 12212-501 0 12/18/2020 09:37:00 12/18/2020 13:08:55 Low back pain 040534795 M54.5 Anemia 654616143 D64.9 Benign pro static hyperplasia 688236367 N40.1 Chronic ob structive pulmonary disease 73881478 J44.9 Chronic pancreatitis 235 799199 K86.1 stent removed [address] Aydin Mcdermott Depressive disorder 3548 9007 F32.89 Gastroesop hageal reflux disease 759303894 K21.9 Insomnia 279156264 G47.0 0 Myocardial infarction 22 595288 I21.9 Schizophrenia 03925026 F 20.9 Primary fi bromyalgia syndrome 66673368 M79.7 Steatotic liver disease 688158969 K76.0 Tobacco user 972769398 Z 72.0 [id number] MD Tobin Todd (Adult Med) [address] [place] [address] [phone] 0 01/20/2021 09:11:38 01/20/2021 12:55:35 Dental abscess 493124353 K04.7 Patient states he is trying to schedule a dentist appointmen t PHI. Primary fi bromyalgia syndrome 66565469 M79.7 Hyperlipidemia 14840950 E78.5 Screening for malignant neoplasm of prostate 387816050 Z12.5 Chronic pancreatitis 235 503409 K86.1 stent removed [address] Aydin Mcdermott Steatotic liver disease 995353268 K76.0 Tobacco user 335578515 Z 72.0 Gastroesop hageal reflux disease 397632087 K21.9 Dental caries 10288506 K 02.9 Depressive disorder 3548 9007 F32.89 Chronic ob structive pulmonary disease 08128729 J44.9 [id number] SALVATORE Andrade (Adult Med) [address] [place] [address] [phone] 0 02/24/2021 13:44:51 02/24/2021 17:12:40 Chronic obstructive pulmonary disease 59557793 J44.9 Low back pain 089354440 M54.5 Dental abscess 883649878 K04.7 Patient states he is trying to schedule a dentist appointmen t PHI. Gastroesop hageal reflux disease 494382273 K21.9 Hyperlipidemia 26338609 E78.5 Insomnia 355941781 G47.0 0 Myocardial infarction 22 409787 I21.9 Primary fi bromyalgia syndrome 38218319 M79.7 Schizophrenia 48141295 F 20.9 Steatotic liver disease 636637584 K76.0 Tobacco user 091766473 Z 72.0 [id number] MD Tobin Todd (Adult Med) [address] [place] [address] [phone] 0 04/29/2021 08:01:07 04/29/2021 14:33:21 Primary fibromyalgia syndrome 35021340 M79.7 Chronic ob structive pulmonary disease 02987563 J44.9 Chronic pancreatitis 235 041931 K86.1 stent removed [address] Aydin Mcdermott Dental caries 16265882 K 02.9 Depressive disorder 3548 9007 F32.89 Gastroesop hageal reflux disease 163815742 K21.9 Hyperlipidemia 01113652 E78.5 Insomnia 736212353 G47.0 0 Irritable bowel syndrome with diarrhea 073973972 K58.0 Myocardial infarction 22 237438 I21.9 Schizophrenia 10769117 F 20.9 Steatotic liver disease 608233034 K76.0 Tobacco user 864852053 Z 72.0 [id number] Dejon Woods MD Tobin (Adult Med) [address] [place] [address] [phone] 0 05/16/2021 12:07:58 05/16/2021 15:19:10 Administration of influenza vaccine 29160708 Z23 [id number] Dejon Woods MD [facility] (Adult Med) [address] [place] [address] [phone] 0 06/10/2021 09:27:23 06/10/2021 13:57:32 Chronic pancreatitis 070353367 K86.1 stent removed [address] Aydin Mcdermott Dental abscess 029745611 K04.7 Patient states [facility] Hyperlipidemia 82243970 E78.5 Insomnia 260646451 G47.0 0 Low back pain 672705795 M54.51 Schizophrenia 09933723 F 20.9 Steatotic liver disease 190785000 K76.0 Tobacco user 501153825 Z 72.0 [id number] MD Tobin Todd (Adult Med) [address] [place] [address] 11820-301 0 07/22/2021 14:41:37 07/23/2021 13:33:07 Chronic pancreatitis 020026507 K86.1 stent removed [address] Aydin Mcdermott Primary fi bromyalgia syndrome 09603046 M79.7 Steatotic liver disease 851143326 K76.0 Screening for malignant neoplasm of prostate 727598110 Z12.5 Chronic ob structive pulmonary disease 55866270 J44.9 Depressive disorder 3548 9007 F32.89 Gastroesop hageal reflux disease 794916025 K21.9 Hyperlipidemia 27977897 E78.5 Insomnia 662287918 G47.0 0 Myocardial infarction 22 891181 I21.9 Schizophrenia 12269532 F 20.9 [id number] MD Tobin Todd (Adult Med) [address] [place] [address] [phone] 0 08/20/2021 10:19:55 08/21/2021 13:38:49 Chronic obstructive pulmonary disease 22917136 J44.9 Chronic pancreatitis 235 816805 K86.1 stent removed [address] Aydin Mcdermott Dental abscess 761958751 K04.7 Patient states [facility] is [facility]. Anemia 498450675 D64.9 Dental caries 22235856 K 02.9 Depressive disorder 3548 9007 F32.89 Gastroesop hageal reflux disease 551141472 K21.9 Hyperlipidemia 46158840 E78.5 Insomnia 960594695 G47.0 0 Myocardial infarction 22 288454 I21.9 Primary fi bromyalgia syndrome 37484860 M79.7 Schizophrenia 08888536 F 20.9 Steatotic liver disease 363666826 K76.0 Tobacco user 101238432 Z 72.0 [id number] MD Tobin Todd (Adult Med) [address] [place] [address] 44784-050 0 10/02/2021 15:44:32 10/06/2021 09:56:37 Myocardial infarction 30510208 I21.9 Pain of le ft hip joint 5150080470 39094 M25.552 both hips bother him but left hip is worse Anemia 085468837 D64.9 Benign pro static hyperplasia 265607541 N40.1 Chronic ob structive pulmonary disease 41086939 J44.9 Chronic pancreatitis 235 973142 K86.1 stent removed [address] Aydin Mcdermott Depressive disorder 3548 9007 F32.89 Gastroesop hageal reflux disease 418686049 K21.9 Hyperlipidemia 14820855 E78.5 Insomnia 494040863 G47.0 0 Low back pain 736590868 M54.51 Primary fi bromyalgia syndrome 59015162 M79.7 Schizophrenia 75051410 F 20.9 Steatotic liver disease 155783952 K76.0 Tobacco user 767641239 Z 72.0 [id number] MD Tobin Todd (Adult Med) [address] [place] [address] [phone] 0 10/31/2021 13:45:13 10/31/2021 14:39:19 Injury of left shoulder 0656198809 6611202 S49.92XA Tobacco user 489829356 Z 72.0 Low back pain 073952155 M54.51 History of hematuria 161 634047 Z87.448 Benign pro static hyperplasia 117920606 N40.1 Anemia 125856129 D64.9 Chronic ob structive pulmonary disease 98241394 J44.9 Chronic prostatitis 1990 5009 N41.1 Patient states he was able to schedule an appointmen t with a specialist for Jun 02, 2019. Depressive disorder 3548 9007 F32.89 Gastroesop hageal reflux disease 297506515 K21.9 Hyperlipidemia 70202050 E78.5 Insomnia 249718080 G47.0 0 Myocardial infarction 22 727855 I21.9 Primary fi bromyalgia syndrome 75239911 M79.7 Schizophrenia 34462973 F 20.9 Steatotic liver disease 343701020 K76.0 Splenomegaly 45662433 R1 6.1 [id number] MD Tobin Todd (Adult Med) [address] [place] [address] 71508-676 0 11/28/2021 11:15:35 11/28/2021 11:59:33 Smoker 82476257 F17.200 Smokes 1 kieran /day for about 40 years, just starts nicotine patch. He agreed for LDCT. Lipid-rich atherosclerosis of coronary artery 6452528800 89010 I25.83 Has stents put in . Pain of le ft shoulder joint 1243988575 1980805 M25.512 Negative x ray. copy provided to patient. Chronic low back pain 27 2023999 M54.50 He used to go to pain management with epidural injection for about 7 years, but now the pain clinic won't accept his health insurance. Will refer to different pain clinic where will accept his insurance. He agreed, Also wants to refill his HYROCODONE .. Administra tion of diphtheria, pertussis, and tetanus vaccine 828133586 Z23 [id number] Dejon Woods MD [facility] (Adult Med) [address] [place] [address] 17901-936 0 01/06/2022 11:16:53 01/08/2022 10:09:47 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 364402614 S44.90XA Degenerati on of lumbar intervertebral disc 61242474 M51.36 Primary fi bromyalgia syndrome 78626692 M79.7 [id number] [facility] [address] [place] [address] [phone] 0 02/05/2022 10:40:49 02/06/2022 12:39:21 Dental abscess 553196896 K04.7 Patient states he is trying to schedule a dentist appointmen t PHI. Chronic pancreatitis 235 896230 K86.1 stent removed [address] Aydin Mcdermott Benign pro static hyperplasia 623615557 N40.1 Chronic ob structive pulmonary disease 77474015 J44.9 Degenerati on of lumbar intervertebral disc 67171746 M51.36 Full thick ness rotator cuff tear 556635255 M75.120 supraspina tus tendon Gastroesop hageal reflux disease 103018955 K21.9 Hyperlipidemia 64551505 E78.5 Injury of left shoulder 2689076120 9478233 S49.92XA Insomnia 600006370 G47.0 0 Myocardial infarction 22 372617 I21.9 Primary fi bromyalgia syndrome 16972507 M79.7 Schizophrenia 73636512 F 20.9 Steatotic liver disease 155734923 K76.0 [id number] Dejon Woods MD [facility] (Adult Med) [address] [place] [address] 72231-072 0 03/12/2022 10:33:40 03/13/2022 12:50:28 Hyperlipidemia 05700888 E78.5 Depressive disorder 3548 9007 F32.89 Degenerati on of lumbar intervertebral disc 39862459 M51.36 Chronic ob structive pulmonary disease 09010565 J44.9 Disorder d ue to and following injury of nerve of shoulder 071527544 S44.90XA Full thick ness rotator cuff tear 167666556 M75.120 supraspina tus tendon Gastroesop hageal reflux disease 528262820 K21.9 Insomnia 118879376 G47.0 0 Myocardial infarction 22 961650 I21.9 Tobacco user 519763632 Z 72.0 Steatotic liver disease 081468217 K76.0 Primary fi bromyalgia syndrome 27666121 M79.7 [id number] Dejon Woods MD [facility] (Adult Med) [address] [place] [address] [phone] 0 04/09/2022 14:23:20 04/10/2022 09:59:47 Chronic obstructive pulmonary disease 44236865 J44.9 Chronic pancreatitis 235 853265 K86.1 stent removed [address] Aydin Jacoboerati on of lumbar intervertebral disc 07401099 M51.36 Depressive disorder 3548 9007 F32.89 Hyperlipidemia 44973699 E78.5 Tobacco user 170313063 Z 72.0 Infection of tooth 84907 8007 K04.7 Gastroesop hageal reflux disease 977716611 K21.9 Injury of left shoulder 1481294164 8659655 S49.92XA Benign pro static hyperplasia 028657240 N40.1 Disorder d ue to and following injury of nerve of shoulder 814982836 S44.90XA Full thick ness rotator cuff tear 976365026 M75.120 supraspina tus tendon Insomnia 193015251 G47.0 0 Irritable bowel syndrome with diarrhea 306089615 K58.0 Myocardial infarction 22 583508 I21.9 Primary fi bromyalgia syndrome 71602411 M79.7 Schizophrenia 18600402 F 20.9 Steatotic liver disease 918882485 K76.0 [id number] Dejon Woods MD [facility] (Adult Med) [address] [place] [address] [phone] 0 05/12/2022 15:57:25 05/13/2022 13:29:49 Tobacco user 256619297 Z87.891 Injury of left shoulder 6710109349 7366057 S49.92XA Degenerati on of lumbar intervertebral disc 85964326 M51.36 Chronic ob structive pulmonary disease 91493117 J44.9 Chronic pancreatitis 235 485722 K86.1 stent removed [address] Aydin Mcdermott Full thick ness rotator cuff tear 507429964 M75.120 supraspina tus tendon Gastroesop hageal reflux disease 707781871 K21.9 Hyperlipidemia 68375318 E78.5 Insomnia 487838049 G47.0 0 Irritable bowel syndrome with diarrhea 351163816 K58.0 Myocardial infarction 22 819108 I21.9 Primary fi bromyalgia syndrome 19480996 M79.7 Pain of le ft hip joint 3710154431 44551 M25.552 both hips bother him but left hip is worse Schizophrenia 56931391 F 20.9 Splenomegaly 56522791 R1 6.1 Steatotic liver disease 702117365 K76.0 [id number] Seymour Cunningham MD [facility] (Adult Med) [address] [place] [address] 95425-356 0 06/09/2022 14:41:27 06/12/2022 11:52:54 Hyperglycemia 11097190 R73.9 Primary fi bromyalgia syndrome 38365305 M79.7 Low back pain 820757086 M54.51 Coronary arteriosclerosis 38630197 I25.10 [id number] Seymour Cunningham MD [facility] (Adult Med) [address] [place] [address] [phone] 0 10/28/2022 15:02:46 10/29/2022 15:18:39 Chronic obstructive pulmonary disease 10088146 J44.9 Restart Symbicort. Coronary atherosclerosis 092949917 I25.84 F/U cardiology Dental abscess 668525090 K04.7 Gastroesop hageal reflux disease 453252973 K21.9 Primary fi bromyalgia syndrome 27501473 M79.7 Tobacco de pendence syndrome 19796723 F17.200 Screening for malignant neoplasm of prostate 879742369 Z12.5 Hyperglycemia 61653292 R 73.9 Hyperlipidemia 87643787 E78.5 Low back pain 645713798 M54.51 Steatotic liver disease 287379150 K76.0 [id number] MD Tobin Rivas (Adult Med) [address] [place] [address] 69799-530 0 02/08/2024 15:38:31 02/09/2024 16:14:06 Gastroesophageal reflux disease 712989324 K21.9 Depressive disorder 3548 9007 F32.89 Low back pain 179445057 M54.51 Advised pt to d/c nsaid use Insomnia 765626306 G47.0 0 [id number] MD Tobin Rivas (Adult Med) [address] [place] [address] [phone] 0 03/30/2024 15:59:53 03/30/2024 17:02:01 Injury of finger 29042633 S69.90XA Sutures removed in office Anxiety 51577899 F41.9 Medication monitoring 39 0420705 Z51.81 [id number] MD Tobin Rivas (Adult Med) [address] [place] [address] [phone] 0 12/28/2024 16:29:31 12/29/2024 13:02:15 Depressive disorder 78947144 F32.89 Low back pain 146424987 M54.51 Gastroesop hageal reflux disease 315047147 K21.9 Schizophrenia 48925878 F 20.9 Insomnia 294952340 G47.0 0 Tobacco de pendence syndrome 47330218 F17.200 Rib pain 228265702 R07.8 1 23502484 Chronic ob structive pulmonary disease 93996560 J44.9 Restart Symbicort. [id number] MD Tobin Santillan (Adult Med) [address] [place] [address] [phone] 0 04/05/2025 13:37:38 04/10/2025 03:47:35 Health Concerns Section Related Observation LastModified by Organization Detai ls LastModified Time None Recorded Concern Status LastModified by Organization Details LastModified Time None Recorded Advance Directives Directive N: Payers Insurance Date Sequence Insurance Name Policy Number Policy Clayton Covered Member ID Clayton Member ID Guarantor Name 04/05/2025 1 [facility] - DOS ON OR AFTER 21 (MEDICAID REPLACEMENT - HMO) Boris Colin [id number] Boris Colin 04/05/2025 1 [facility] PRIOR TO 01/23/2021 (MEDICAID REPLACEMENT - HMO) Boris Colin [id number] Boris Colin Notes Date Note Type Note Provider Name and Address Organization Details Recorded Time 10/28/2022 text/html Has experienced increased dyspnea since without his inhaler. Has swelling of his gums. He continues to smoke Seymour Cunningham MD Attn: Accounting,[address] [facility], [place], [address], [facility] [place], [place] 10/28/2022 15:42:10 02/08/2024 text/html Concerned about increased anxiety and mood swings. He ran out of citalopram. Legs are numb and weak. He has been losing strength in his legs and has been falling. He has low back pain. He has intermittent SOB. He does not sleep well Seymour Cunningham MD Attn: Accounting,[address] [facility], [place], [address], [facility] [place], [place] 02/08/2024 16:43:37 03/30/2024 text/html Here for removal of sutures from right middle finger. Would like to restart antianxiety meds Seymour Cunningham MD Attn: Accounting,[address] [facility], [place], [address], [facility] [place], [place] 03/30/2024 17:00:13 12/28/2024 text/html Here for med refills. Is concerned about a painful swollen area in left upper abdomen. He sits around and cries a lot. His appetite is poor. Seymour Cunningham MD Attn: Accounting,[address] [facility], [place], [address], [facility] [place], [place] 12/28/2024 17:55:37 04/05/2025 text/html ROS as noted [...] stepped out and came in with a vpk teacher, Nettie Rich MA who was with me [...] records. Mckenzie Torres MD Attn: Accounting,[address] [facility], [place], [address], [facility] 04/05/2025 14:25:06
[2025-07-18 12:11] LABS: Hematocrit 40.8 % (42.0-52.0); Hemoglobin 13.4 g/dL (14.0-18.0); Mean Corpuscular HGB Conc 32.8 g/dl (32-36); Mean Corpuscular Hemoglobin 32.9 pg (26-34); Mean Corpuscular Volume 100.2 fl (80-100); Platelet Count Result 140 k/mm3 (150-375); Red Blood Count 4.07 M/mm3 (4.6-6.20); White Blood Count 7.4 K/mm3 (4.5-10.0)
[2025-07-18 12:32] LABS: Alanine Aminotransferase 16 U/L (6-50); Albumin Level 4.3 g/dL (3.5-5.1); Alkaline Phosphatase 75 U/L (38-126); Anion Gap 6 mmol/L (4-12); Aspartate Amino Transferase 24 U/L (17-59); Bilirubin,Total 0.3 mg/dL (0.2-1.3); Blood Urea Nitrogen 11 mg/dL (9-20); Calcium 9.4 mg/dL (8.4-10.2); Carbon Dioxide 28 mmol/L (22-30); Chloride 109 mmol/L (98-107); Cholesterol 144 mg/dL (0-200); Estimated Glomerular Filt Rate > 60; Glucose 78 mg/dL (65-110); HDL Direct 43 mg/dL; Potassium 4.3 mmol/L (3.4-5.0); Sodium 143 mmol/L (137-145); Total Protein 7.1 g/dL (6.3-8.2); Triglycerides 147 mg/dL (<150)
[2025-07-18 13:08] LABS: Prostate Specific Antigen 6.0 ng/mL (< OR = 4.0); Thyroid Stimulating Hormone 3.930 uIU/mL (0.465-4.680)
== END 2025-07-18 11:08 | disposition home or self-care (01) ==
PROVIDERS: PCP Nurse Practitioner; Visit Provider Nurse Practitioner
DX: Z12.2 Encounter for screening for malignant neoplasm of respiratory organs (principal); Z87.891 Personal history of nicotine dependence; Z12.5 Encounter for screening for malignant neoplasm of prostate; E78.5 Hyperlipidemia, unspecified; I10 Essential (primary) hypertension; E03.9 Hypothyroidism, unspecified
CPT/HCPCS: 36415; 71271; 80053; 80061; 84153; 84443; 85027; G0103